=== PATIENT | male | born 1960 | race Asian ===

== ENCOUNTER 2018-07-14 10:30 | Inpatient (IN) | payer OTHER ==
[2018-07-14 10:37] VITALS: BMI 25.0
--- NOTE | 2018-07-14 10:38 | PDOC ---
History of Present Illness - General Chief Complaint: Chest Pain Stated Complaint: CHEST PAIN Time Seen by Provider: 07/14/18 10:38 History Source: Patient Exam Limitations: No Limitations - History of Present Illness Initial Comments: 07/14/18 11:13 58-year-old male with past medical history of hypertension, hyperlipidemia presented to ED chest pain since 9:45 AM. He describes the pain to be located to the left side of his chest, sharp, heavy, non-radiating, no alleviating are aggravating factors. He admits to shortness of breath, lightheadedness. His father had and [place] in his 80s. He denies alcohol used drug use nicotine history. He states he was standing in the shower when the pain began. Allergies - NKDA Past History - Past Medical History Allergies/Adverse Reactions: Allergies Allergy/AdvReac Type Severity Reaction Status Date / Time No Known Allergies Allergy Verified 07/14/18 10:34 Home Medications: Ambulatory Orders Montelukast Sodium [Singulair] 10 mg PO DAILY 07/14/18 Atorvastatin Ca [Lipitor] 80 mg PO HS tablet 07/15/18 Heparin - 1,000 unit IVPUSH PRN PRN vial 07/15/18 Heparin - 5,000 unit IVPUSH PRN PRN vial 07/15/18 Heparin - 5,000 unit IVPUSH PRN PRN vial 07/15/18 Heparin - 25,000 unit IV TITR vial 07/15/18 Metoprolol Tartrate [Lopressor -] 25 mg PO BID tablet 07/15/18 COPD: No HTN: Yes Hypercholesterolemia: Yes Other medical history: seasonal allergies - Immunization History Immunization Up to Date: Yes - Suicide/Smoking/Psychosocial Hx Smoking History: Never smoked Have you smoked in the past 12 months: No Hx Alcohol Use: No Drug/Substance Use Hx: No Substance Use Type: None Review of Systems - Review of Systems Able to Perform ROS?: Yes Comments:: 07/14/18 10:58 General: denies fever, chills, night sweats, generalized weakness. HEENT: denies sore throat, rhinorrhea, ear pain. Heart: admits to chest pain, pre-syncope, lightheadedness. denies palpitations, syncope, lower extremity swelling, diaphoresis. Respiratory: admits to shortness of breath. denies cough, sputum production, hemoptysis. Abdomen: denies abdominal pain, nausea, vomiting, diarrhea, constipation, blood in stool. : denies dysuria, increased urinary frequency, hematuria, urinary incontinence , flank pain. Back: denies back pain. Musculoskeletal: denies joint pain, muscle pain, joint swelling. Neurological: denies headache, dizziness, numbness, tingling, weakness. Skin: denies rash, laceration, abrasion. *Physical Exam - Vital Signs Last Vital Signs Temp Pulse Resp BP Pulse Ox 97.7 F 102 H 18 156/92 100 07/14/18 10:35 07/14/18 10:35 07/14/18 10:35 07/14/18 10:35 07/14/18 10:35 - Physical Exam Comments: 07/14/18 10:59 Constitutional: Well-nourished, Well-developed, appearing stated age. HEENT: head is normocephalic, atraumatic. EOMI. PERRLA. Neck: supple. Full ROM. Heart: regular rhythm. no murmurs, rubs or gallops. Lungs: clear to auscultation bilaterally. no crackles, rhonchi or wheezing. no stridor. Abdomen: soft, nontender. normal bowel sounds. no rebound, guarding, masses. Extremities: Peripheral pulses intact. No lower extremity edema. Neurological: CN 2-12 grossly intact. Moves all four extremities. Psych: awake, alert, oriented x3. Follows commands. Answers questions appropriately. Heart Score/ECG Review - History History: Highly suspicious - Electrocardiogram EKG: Significant ST-depression - Age Age: 45-65 - Risk Factors Risk Factors Heart Score: Yes Hx Hypercholesterolemia, Yes Hx Hypertension Based on the list above the patient has:: 1-2 risk factors - Troponin Troponin: 1-3x normal limit - Score Heart Score - Total: 7 ED Treatment Course - LABORATORY CBC & Chemistry Diagram: 07/15/18 05:14 07/15/18 05:14 Medical Decision Making - Medical Decision Making 07/14/18 10:59 58 year old male with PMH HTN, HLD presented to ED for left sided chest pain since 09 today associated with lightheadedness, SOB, pre-syncope. Initial Vital Signs Temp Pulse Resp BP Pulse Ox 97.7 F 102 H 18 156/92 100 07/14/18 10:35 07/14/18 10:35 07/14/18 10:35 07/14/18 10:35 07/14/18 10:35 Afebrile. Mildly tachycardic. - IV fluids ordered Hypertensive No hypoxia on room air. EKG performed at 1043 - rate 93, regular rhythm, normal axis, normal intervals, ST depression to the precordial anterior and lateral leads. flipped Ts to lateral leads. Posterior EKG performed at 1059 - rate 90, regular rhythm, normal axis, normal intervals, no ST changes. Prior EKG 12/12/2015 - rate 9, regular rhythm, normal axis, flipped Ts to anterior and lateral leads. Bedside echo performed by myself and Dr. Diaz - good cardiac squeeze. no pericardial effusion. Bedside lung US performed by myself and Dr. Diaz - lung sliding bilaterally. no B- lines. HEART score = at least a 6 - Pending Troponin Concern for ACS. - Pending labs, CXR ASA, Morphine given. Cardiology paged. 07/14/18 11:17 Dr. Diaz spoke with Cardiology patient ombudsperson, Dr. Bridges, he states he will see the patient. CXR report - no acute intrathoracic pathology. CBC WBC 4.4 K/mm3 (4.0-10.0) 07/14/18 10:52 RBC 5.10 M/mm3 (4.00-5.60) 07/14/18 10:52 Hgb 15.7 GM/dL (11.7-16.9) 07/14/18 10:52 Hct 46.4 % (35.4-49) 07/14/18 10:52 MCV 91.0 fl (80-96) 07/14/18 10:52 MCH 30.8 pg (25.7-33.7) 07/14/18 10:52 MCHC 33.9 g/dl (32.0-35.9) 07/14/18 10:52 RDW 12.6 % (11.9-15.9) 07/14/18 10:52 Plt Count 171 K/MM3 (134-434) 07/14/18 10:52 MPV 9.5 fl (7.5-11.1) 07/14/18 10:52 Absolute Neuts (auto) 1.7 K/mm3 (1.5-8.0) 07/14/18 10:52 Neutrophils % 38.6 % (42.8-82.8) L D 07/14/18 10:52 Lymphocytes % 48.3 % (8-40) H D 07/14/18 10:52 Monocytes % 10.1 % (3.8-10.2) 07/14/18 10:52 Eosinophils % 1.9 % (0-4.5) D 07/14/18 10:52 Basophils % 1.1 % (0-2.0) 07/14/18 10:52 Nucleated RBC % 0 % (0-0) 07/14/18 10:52 No leukocytosis. No anemia. 07/14/18 11:47 CMP Sodium 142 mmol/L (136-145) 07/14/18 10:52 Potassium 3.3 mmol/L (3.5-5.1) L 07/14/18 10:52 Chloride 105 mmol/L (98-107) 07/14/18 10:52 Carbon Dioxide 25 mmol/L (21-32) 07/14/18 10:52 Anion Gap 12 MMOL/L (8-16) 07/14/18 10:52 BUN 13 mg/dL (7-18) 07/14/18 10:52 Creatinine 1.1 mg/dL (0.55-1.3) 07/14/18 10:52 Creat Clearance w eGFR > 60 (>60) 07/14/18 10:52 Random Glucose 102 mg/dL (74-106) 07/14/18 10:52 Calcium 8.8 mg/dL (8.5-10.1) 07/14/18 10:52 Magnesium 2.2 mg/dL (1.8-2.4) 07/14/18 10:52 Total Bilirubin 0.5 mg/dL (0.2-1) 07/14/18 10:52 AST 33 U/L (15-37) 07/14/18 10:52 ALT 43 U/L (13-61) 07/14/18 10:52 Alkaline Phosphatase 60 U/L (45-117) 07/14/18 10:52 Troponin I 0.80 ng/ml (0.00-0.05) H* 07/14/18 10:52 Total Protein 8.2 g/dl (6.4-8.2) 07/14/18 10:52 Albumin 4.3 g/dl (3.4-5.0) 07/14/18 10:52 Positive troponin. HEART score = 7 Hypokalemia - PO Kcl ordered Dr. Bridges at bedside, notified of results, recs heparin and nitro drip. -Ordered 07/14/18 12:01 Vital Signs Temperature 97.7 F 07/14/18 10:35 Pulse Rate 93 H 07/14/18 11:49 Respiratory Rate 18 07/14/18 11:49 Blood Pressure 133/86 07/14/18 11:49 O2 Sat by Pulse Oximetry (%) 100 07/14/18 11:49 Hypertension improving. Tachycardia improved. I spoke with Dr. Bridges about the case after he evaluated the patient, he advises admission to [facility] for NSTEMI. Pt will be admitted. 07/14/18 13:01 Dr. Diaz spoke with Lynne, admitting team, pt will be admitted to Dr. Carvajal service. 07/14/18 13:57 Repeat troponin and EKG ordered. 07/14/18 14:05 Repeat EKG performed at 1400 - rate 63, regular rhythm, normal axis, continued ST depression and flipped Ts in precordial anterior/lateral leads. flipped Ts in lateral leads. 07/14/18 14:47 Lab called - Troponin 1.02 07/14/18 18:48 Lab called - Troponin 1.49 Cardiology, Dr. Bridges, paged. *DC/Admit/Observation/Transfer Diagnosis at time of Disposition: NSTEMI (non-ST elevated myocardial infarction) - Discharge Dispostion Disposition: TRANSFER ACUTE CARE/OTHER HOSP Condition at time of disposition: Guarded Decision to Admit order: Yes - Referrals - Patient Instructions - Post Discharge Activity
[2018-07-14] MEDS ORDERED: ASPIRIN 81 MG CHEWABLE TABLETS PO ONE (10:40)
--- NOTE | 2018-07-14 10:41 | PDOC ---
Attending Attestation - Resident Resident Name: Roxy Joyner - ED Attending Attestation I have performed the following: I have examined & evaluated the patient, The case was reviewed & discussed with the resident, I agree w/resident's findings & plan - HPI HPI: 07/14/18 11:00 58-year-old male with HTN, HLD GERD presenting with acute onset of left-sided nonradiating and nonexertional chest pain at 9:45 AM while he was taking a shower. Associated with near syncopal episode. Currently chest pain is 10/10. No relieving or exacerbating factors. Family history of CAD and elderly father in his 80s and diabetes. Denies tobacco, alcohol or drug use. - Physicial Exam PE: 07/14/18 11:09 mild distress 2/2 pain, unwell appearing, MMM, nl conjunctiva, EOMI, PERRL. anicteric; neck supple. no jvd. lungs clear, RRR, abdomen soft nontender. BHANDARI x4 , no focal neuro deficits. No peripheral edema. normal color for ethnicity, WWP. no calf tenderness. - Critical Care Time Total Critical Care Time: 40 (NSTEMI) Critical Care Statement: The care of this patient involved high complexity decision making to prevent further life threatening deterioration of the patient 's condition and/or to evaluate & treat vital organ system(s) failure or risk of failure. - Medical Decision Making 07/14/18 11:09 58-year-old male with HTN, HLD GERD p/w typical chest pain. Chest pain Heart score; HEART score 7 which denotes High risk and suspicion probability for ACS, warrants admission DDx includes ACS, angina, chest pain NOS, costochondritis, GERD, pleurisy, anxiety, esophageal spasm. Low suspicion for pulmonary embolism or dissection. Vital signs reviewed, +tachycardia noted, likely from pain. EKG normal sinus rhythm, no interval abnormalities, narrow QRS, deep T wave inversions in precordials, I, AVL, St depressions in V1-V3, changed from prior. emergent bedside POCUS echo - no pericardial effusion, RV<LV, normal EF on visual estimation, bilateral lung sliding, A line predominance, no e/o pulmonary edema or AIS or ptx. interventions in the ED: ASA 324mg PO, morphine analgesia, IVF. Heparin 5000 units bolus and gtt. Plavix load. nitro gtt. laboratory results and imaging reviewed, basic labs and lytes wnl, notable for mildly low potassium, repleted. CXR_negative for intra thoracic process. Cardiac panel with elevated troponin to 0.8, new EKG changes for acute ischemia cardiology cs with Dr. Bridges, agree with plan, will come to see - plan for urgent cath likely tomorrow Dispo: Admit for observation, concern for unstable angina/NSTEMI and symptomatic. to r/o MA, serial trops and EKG/tele monitoring, more urgent catheterization. ASA/plavix, heparin gtt administered, pain controlled, discussion with patient and family at bedside, questions answered. 07/14/18 13:00 07/14/18 13:02 Heart Score/ECG Review - History History: Highly suspicious - Electrocardiogram EKG: Significant ST-depression - Age Age: 45-65 - Risk Factors Risk Factors Heart Score: Yes Hx Hypercholesterolemia, Yes Hx Hypertension Based on the list above the patient has:: 1-2 risk factors - Troponin Troponin: 1-3x normal limit - Score Heart Score - Total: 7 - ECG Impressions Ischemic Changes: Yes Comment:: 07/14/18 11:21 EKG normal sinus rhythm, no interval abnormalities, narrow QRS, deep T wave inversions in precordials, I, AVL, St depressions in V1-V3, changed from prior. Procedures - Bedside Ultrasound Bedside Ultrasound: Cardiac Remarks: 07/14/18 11:25 POCUS echo performed, indication includes chest pain. views obtained (PSLA, PSS , A4, SX). Findings include normal EF, no pericardial effusion, primarily A lines, b/l lung sliding. no FWMA. RV<LV. Impression: no acute findings
[2018-07-14] MEDS ORDERED: ASPIRIN 81 MG CHEWABLE TABLETS ONE (10:44)
[2018-07-14] MEDS ORDERED: morphine CARPU-JECT 4 MG/1 ML DISP.SYRIN IVPUSH ONE (10:57)
[2018-07-14] MEDS ORDERED: SODIUM CHLORIDE 0.9% 500 ML INFUS.BAG IV ONE (10:58)
[2018-07-14] MEDS ORDERED: morphine SULFATE 4 MG/ML VIAL ONE (10:59)
[2018-07-14 11:03] LABS: BASO % 1.1 % (0-2.0); EOS % 1.9 % (0-4.5); HEMATOCRIT 46.4 % (35.4-49); HEMOGLOBIN 15.7 GM/dL (11.7-16.9); LYMPH % 48.3 % (8-40); MCH 30.8 pg (25.7-33.7); MCHC 33.9 g/dl (32.0-35.9); MEAN PLT VOLUME 9.5 fl (7.5-11.1); MONO % 10.1 % (3.8-10.2); NEUT % 38.6 % (42.8-82.8); PLATELET COUNT 171 K/MM3 (134-434); RDW 12.6 % (11.9-15.9); WHITE BLOOD COUNT 4.4 K/mm3 (4.0-10.0)
[2018-07-14 11:31] LABS: ALBUMIN 4.3 g/dl (3.4-5.0); ALK PHOS 60 U/L (45-117); ANION GAP 12 MMOL/L (8-16); BILIRUBIN,TOTAL 0.5 mg/dL (0.2-1); BLOOD UREA NITROGEN 13 mg/dL (7-18); CALCIUM 8.8 mg/dL (8.5-10.1); CHLORIDE 105 mmol/L (98-107); CO2 25 mmol/L (21-32); CREATININE 1.1 mg/dL (0.55-1.3); GLUCOSE,RANDOM 102 mg/dL (74-106); MAGNESIUM 2.2 mg/dL (1.8-2.4); POTASSIUM 3.3 mmol/L (3.5-5.1); SGOT/AST 33 U/L (15-37); SGPT/ALT 43 U/L (13-61); SODIUM 142 mmol/L (136-145); TOT PROT 8.2 g/dl (6.4-8.2)
[2018-07-14] MEDS ORDERED: POTASSIUM CHLORIDE TABS 20 MEQ TABLET.ER (FP) PO ONE ×2 (11:36→11:53)
[2018-07-14] MEDS ORDERED: HEPARIN - 25,000 UNIT in SODIUM CHLORIDE 495 ML IV SCH (11:45)
[2018-07-14] MEDS ORDERED: NITROGLYCERIN SUBLINGUAL 1/150 0.4 MG TAB SL ONE (11:45)
[2018-07-14] MEDS ORDERED: HEPARIN NA (PORCINE) 5,000 UNITS/ML 1ML VIAL IVPUSH PRN ×3 (11:45)
[2018-07-14] MEDS ORDERED: CLOPIDOGREL BISULFATE 300 MG TABLET PO ONE (11:49)
[2018-07-14] MEDS ORDERED: HEPARIN NA (PORCINE) 5,000 UNITS/ML 1ML VIAL ONE ×2 (11:52→11:53)
[2018-07-14] MEDS ORDERED: HEPARIN INFUSION - 25,000 UNITS/500 ML INFUS.BAG IVPB ONE (11:52)
[2018-07-14] MEDS ORDERED: NITROGLYCERIN 25MG/D5W 250ML 25 MG/250 ML ML IVPB ONE (11:52)
[2018-07-14 11:59] LABS: INR 0.91 (0.83-1.09); PROTHROMBIN TIME (PATIENT) 10.7 SEC (9.7-13.0)
[2018-07-14] MEDS ORDERED: NITROGLYCERIN 50MG/D5W 250ML 50 MG/250 ML ML IVPB SCH (12:00)
[2018-07-14 12:01] LABS: ACTIVATED PTT 32.7 SECONDS (25.2-36.5)
--- NOTE | 2018-07-14 12:05 | CON.CARD ---
Consult Consult Specialty:: Cardiology Referred by:: ER attending Reason for Consultation:: Cardiac evaluation - History of Present Illness Chief Complaint: Chest pain History of Present Illness: Patient is a 58 year old male with underlying history of HTN and hypercholesterolemia who presents with left sided chest pressure and SOB that started at 9:45 am this morning. He was brought in by his son. He was taking a shower when the pain started. He has not had chest pains in the past. Denies palpitations and denies nausea, vomiting, diarrhea or abdominal pain. He denies paroxysmal nocturnal dyspnea or orthopnea. He denies fever or chills. Denies headache or dizziness. He was given chewable ASA and morphine which has relieved the pain. Troponin level is elevated at 0.8. Cardiology consultation was called for further evaluation. - History Source History Provided By: Patient, Medical Record Limitations to Obtaining History: No Limitations - Past Medical History Cardio/Vascular: Yes: HTN, Hyperlipdemia - Alcohol/Substance Use Hx Alcohol Use: No - Smoking History Smoking history: Never smoked Have you smoked in the past 12 months: No Home Medications - Allergies Allergies/Adverse Reactions: Allergies Allergy/AdvReac Type Severity Reaction Status Date / Time No Known Allergies Allergy Verified 07/14/18 10:34 - Home Medications Home Medications: Ambulatory Orders Hydrochlorothiazide [Hctz -] 12.5 mg PO DAILY 12/12/15 Montelukast Sodium [Singulair] 10 mg PO DAILY 07/14/18 Simvastatin 20 mg PO DAILY 07/14/18 Family Disease History - Family Disease History Family Disease History: Heart Disease: Father ([place] at age 80) Other Family History: History of DM Review of Systems - Review of Systems Constitutional: denies: Chills, Fever Cardiovascular: reports: Chest Pain, Shortness of Breath. denies: Palpitations Respiratory: reports: SOB. denies: Cough, Hemoptysis, Orthopnea, SOB on Exertion, Wheezing Gastrointestinal: denies: Abdominal Pain, Constipation, Diarrhea, Melena, Nausea , Rectal Bleeding, Vomiting Genitourinary: denies: Dysuria, Hematuria Musculoskeletal: denies: Back Pain, Joint Pain Neurological: denies: Dizziness, Headache, Seizure, Syncope Vital Signs: Vital Signs Temperature 97.7 F 07/14/18 10:35 Pulse Rate 93 H 07/14/18 11:49 Respiratory Rate 18 07/14/18 11:49 Blood Pressure 133/86 10/21/18 11:49 O2 Sat by Pulse Oximetry (%) 100 07/14/18 11:49 Neck: Yes: Supple Respiratory: Yes: CTA Bilaterally Gastrointestinal: Yes: Normal Bowel Sounds, Soft. No: Tenderness Cardiovascular: Yes: Regular Rate and Rhythm JVD: No Carotid Bruit: No PMI: Non-Displaced Heart Sounds: Yes: S1, S2. No: Gallop Murmur: No: Systolic Murmur, Diastolic Murmur Edema: No - Other Data Labs, Other Data: CBC, BMP 07/14/18 10:52 07/14/18 10:52 Troponin, BNP 07/14/18 10:52 Troponin I 0.80 H* Laboratory Results - last 24 hr 07/14/18 07/14/18 07/14/18 10:52 10:52 10:52 WBC 4.4 RBC 5.10 Hgb 15.7 Hct 46.4 MCV 91.0 MCH 30.8 MCHC 33.9 RDW 12.6 Plt Count 171 MPV 9.5 Absolute Neuts (auto) 1.7 Neutrophils % 38.6 L D Lymphocytes % 48.3 H D Monocytes % 10.1 Eosinophils % 1.9 D Basophils % 1.1 Nucleated RBC % 0 PT with INR 10.70 INR 0.91 PTT (Actin FS) 32.7 Sodium 142 Potassium 3.3 L Chloride 105 Carbon Dioxide 25 Anion Gap 12 BUN 13 Creatinine 1.1 Creat Clearance w eGFR > 60 Random Glucose 102 Calcium 8.8 Magnesium 2.2 Total Bilirubin 0.5 AST 33 ALT 43 Alkaline Phosphatase 60 Troponin I 0.80 H* Total Protein 8.2 Albumin 4.[address]-T abnormality inferolatera ischemia Imaging - Results Chest X-ray: Report Reviewed (Unremarkable) EKG: Report Reviewed Problem List - Problems (1) HTN (hypertension) Code(s): I10 - ESSENTIAL (PRIMARY) HYPERTENSION Qualifiers: Hypertension type: essential hypertension Qualified Code(s): I10 - Essential (primary) hypertension (2) Hypercholesterolemia Code(s): E78.00 - PURE HYPERCHOLESTEROLEMIA, UNSPECIFIED (3) NSTEMI (non-ST elevated myocardial infarction) Code(s): I21.4 - NON-ST ELEVATION (NSTEMI) MYOCARDIAL INFARCTION (4) Chest pain Code(s): R07.9 - CHEST PAIN, UNSPECIFIED Assessment/Plan 1. NSTEMI with elevated troponin and abnormal ECG 2. HTN 3. Hypercholesterolemia 4. Seasonal allergies PLAN: 1. ASA +/- Plavix or Brillinta 2. Add Metoprolol 25 mg BID as tolerated 3. Heparin protocol 4. IV NTG 5. Lipitor 80 mg daily 6. Hold HCTZ 7. Trend troponin to check for peak 8. Consider cardiac catheterization/coronary angiography - will plan to transfer to [facility] in AM unless he becomes unstable Guarded Maycol Bridges MD
[2018-07-14] MEDS ORDERED: CLOPIDOGREL BISULFATE 300 MG TABLET ONE (12:10)
[2018-07-14] MEDS ORDERED: ATORVASTATIN CA 80 MG TABLET (FP) PO ONE (12:19)
--- NOTE | 2018-07-14 13:19 | EKG ---
Test Reason : Blood Pressure : / mmHG Vent. Rate : 093 BPM Atrial Rate : 093 BPM P-R Int : 170 ms QRS Dur : 088 ms QT Int : 392 ms P-R-T Axes : 069 036 141 degrees QTc Int : 487 ms NORMAL SINUS RHYTHM LEFT VENTRICULAR HYPERTROPHY WITH REPOLARIZATION ABNORMALITY POSTERIOR INFARCT , AGE UNDETERMINED ABNORMAL ECG WHEN COMPARED WITH ECG OF 12-DEC-2015 21:06, ST NOW DEPRESSED IN ANTERIOR LEADS Confirmed by EDWINA MAYA, KERRY ([id number]) on 07/14/2018 1:18:38 PM Referred By: Confirmed By:KERRY BLAND MD
[2018-07-14] MEDS: METOPROLOL TARTRATE 25 MG TABLET (FP) PO SCH ×2 (13:35→23:53)
--- NOTE | 2018-07-14 18:18 | HP ---
CHIEF COMPLAINT: chest pain PCP: Dr. Bryan HISTORY OF PRESENT ILLNESS: Patient is 58 year old male with a significant past medical history of hypertension and hyperlipidemia. He presents to the ED with chest pain that began around 945a.m. today. Pain is located in the left side of his chest, does not radiate. It felt heavy, sharp and persistent. During the episode of chest pain, he had mild shortness of breath and felt dizzy. EKG in the ED shows NSR, t wave inversion in posterior leads with ST depression in v1, v3. In the Ed he had a bedside echo, given ASA 324mg, morphine for chest pain, started on IVF hydration, started on a heparin drip. He was given a plavix loading dose and started on NITRO for chest pain. Patient seen by cardiology and plan to transfer to cardiac cath. ER course was notable for: (1) ekg with acute posterior ischemia (2) trop elevation, chest pain (3) heparin gtt, nitro gtt Recent Travel: denies PAST MEDICAL HISTORY: hypertension, hld PAST SURGICAL HISTORY: none reported Social History: Smoking: denies Alcohol: denies Drugs: denies Family History: Allergies No Known Allergies Allergy (Verified 07/14/18 10:34) HOME MEDICATIONS: Home Medications Medication Instructions Recorded Hydrochlorothiazide [Hctz -] 12.5 mg PO DAILY 12/12/15 Montelukast Sodium [Singulair] 10 mg PO DAILY 07/14/18 Simvastatin 20 mg PO DAILY 07/14/18 PHYSICAL EXAMINATION Vital Signs - 24 hr 07/14/18 07/14/18 07/14/18 10:35 11:06 11:10 Temperature 97.7 F Pulse Rate 102 H 89 Pulse Rate [ 91 H Apical] Respiratory 18 18 Rate Blood Pressure 156/92 Blood Pressure 140/90 [Left Arm] O2 Sat by Pulse 100 100 100 Oximetry (%) 07/14/18 07/14/18 07/14/18 11:49 12:36 13:43 Temperature Pulse Rate Pulse Rate [ 93 H 73 78 Apical] Respiratory 18 18 18 Rate Blood Pressure Blood Pressure 133/86 133/73 126/73 [Left Arm] O2 Sat by Pulse 100 100 100 Oximetry (%) 07/14/18 07/14/18 14:36 16:00 Temperature Pulse Rate Pulse Rate [ 70 63 Apical] Respiratory 17 18 Rate Blood Pressure Blood Pressure 125/73 110/74 [Left Arm] O2 Sat by Pulse 100 100 Oximetry (%) GENERAL: Awake, alert, and fully oriented, having mild left sided chest pain 2/ 10 HEAD: Normal with no signs of trauma. EYES: Pupils equal, round and reactive to light, extraocular movements intact, sclera anicteric, conjunctiva clear. No lid lag. EARS, NOSE, THROAT: Ears normal, nares patent, oropharynx clear without exudates. Moist mucous membranes. NECK: Normal range of motion, supple without lymphadenopathy, JVD, or masses. LUNGS: Breath sounds equal, clear to auscultation bilaterally. No wheezes, and no crackles. No accessory muscle use. HEART: Regular rate and rhythm ABDOMEN: Soft, nontender, not distended, normoactive bowel sounds, no guarding, no rebound, no masses. No hepatomegaly or splenomegaly. MUSCULOSKELETAL: Normal range of motion at all joints. No bony deformities or tenderness. No CVA tenderness. UPPER EXTREMITIES: No clubbing. No peripheral edema. LOWER EXTREMITIES: No calf tenderness. No peripheral edema. NEUROLOGICAL: Normal speech. Normal gait. PSYCHIATRIC: Cooperative. Good eye contact. Appropriate mood and affect. SKIN: Warm, dry, normal turgor, no rashes or lesions noted, normal capillary refill. Laboratory Results - last 24 hr 07/14/18 07/14/18 07/14/18 10:52 10:52 10:52 WBC 4.4 RBC 5.10 Hgb 15.7 Hct 46.4 MCV 91.0 MCH 30.8 MCHC 33.9 RDW 12.6 Plt Count 171 MPV 9.5 Absolute Neuts (auto) 1.7 Neutrophils % 38.6 L D Lymphocytes % 48.3 H D Monocytes % 10.1 Eosinophils % 1.9 D Basophils % 1.1 Nucleated RBC % 0 PT with INR 10.70 INR 0.91 PTT (Actin FS) 32.7 D-Dimer Sodium 142 Potassium 3.3 L Chloride 105 Carbon Dioxide 25 Anion Gap 12 BUN 13 Creatinine 1.1 Creat Clearance w eGFR > 60 Random Glucose 102 Calcium 8.8 Magnesium 2.2 Total Bilirubin 0.5 AST 33 ALT 43 Alkaline Phosphatase 60 Troponin I 0.80 H* Total Protein 8.2 Albumin 4.3 07/14/18 07/14/18 10:56 14:07 WBC RBC Hgb Hct MCV MCH MCHC RDW Plt Count MPV Absolute Neuts (auto) Neutrophils % Lymphocytes % Monocytes % Eosinophils % Basophils % Nucleated RBC % PT with INR INR PTT (Actin FS) D-Dimer 340 Sodium Potassium Chloride Carbon Dioxide Anion Gap BUN Creatinine Creat Clearance w eGFR Random Glucose Calcium Magnesium Total Bilirubin AST ALT Alkaline Phosphatase Troponin I 1.02 H* Total Protein Albumin ASSESSMENT/PLAN: Patient is 58 year old male with a significant past medical history of hypertension and hyperlipidemia. He presents to the ED with chest pain that began around 945a.m. today. Pain is located in the left side of his chest, does not radiate. It felt heavy, sharp and persistent. During the episode of chest pain, he had mild shortness of breath and felt dizzy. EKG in the ED shows NSR, t wave inversion in posterior leads with ST depression in v1, v3. In the Ed he had a bedside echo, given ASA 324mg, morphine for chest pain, started on IVF hydration, started on a heparin drip. He was given a plavix loading dose and started on NITRO for chest pain. Patient seen by cardiology and plan to transfer to cardiac cath. Cardiology Chest pain Elevated troponins, new ekg changes with t wave inversions, st depression Given Plavix loading dose, ASA 324, heparin gtt, Nitro drip for chest pain Heparin drip for acute NC Transfer to cardiac cath (Kenny) Monitor on tele. Cardiology following fen hydration with ns monitor electrolytes, potassium repleted in the ED low salt diet, npo at midnight prophy: heparin drip nitro drip protonix full code Visit type - Emergency Visit Emergency Visit: Yes ED Registration Date: 07/14/18 Care time: The patient presented to the Emergency Department on the above date and was hospitalized for further evaluation of their emergent condition. - New Patient This patient is new to me today: Yes Date on this admission: 07/14/18 - Critical Care Critical Care patient: No
[2018-07-14] MEDS ORDERED: MORPHINE SULFATE 2 MG/ML VIAL IVPUSH PRN (21:44)
[2018-07-14] MEDS ORDERED: ATORVASTATIN CA 80 MG TABLET (FP) ONE (22:23)
[2018-07-14] MEDS ORDERED: METOPROLOL TARTRATE 25 MG TABLET (FP) ONE (22:23)
[2018-07-15] MEDS ORDERED: METOPROLOL TARTRATE 25 MG TABLET (FP) ONE (00:01)
[2018-07-15 06:16] LABS: BASO % 0.6 % (0-2.0); EOS % 1.3 % (0-4.5); HEMATOCRIT 41.7 % (35.4-49); HEMOGLOBIN 13.9 GM/dL (11.7-16.9); MCH 30.5 pg (25.7-33.7); MCHC 33.3 g/dl (32.0-35.9); MEAN CELL VOLUME 91.7 fl (80-96); MEAN PLT VOLUME 9.9 fl (7.5-11.1); MONO % 9.2 % (3.8-10.2); NEUT % 62.9 % (42.8-82.8); PLATELET COUNT 167 K/MM3 (134-434); RBC 4.55 M/mm3 (4.00-5.60); RDW 13.1 % (11.9-15.9); WHITE BLOOD COUNT 8.6 K/mm3 (4.0-10.0)
[2018-07-15 06:48] LABS: MAGNESIUM 2.3 mg/dL (1.8-2.4); PHOSPHOROUS 3.2 mg/dL (2.5-4.9)
[2018-07-15 06:49] LABS: ALBUMIN 3.7 g/dl (3.4-5.0); ALK PHOS 49 U/L (45-117); ANION GAP 6 MMOL/L (8-16); BILIRUBIN,TOTAL 0.9 mg/dL (0.2-1); BLOOD UREA NITROGEN 12 mg/dL (7-18); CALCIUM 8.8 mg/dL (8.5-10.1); CHLORIDE 108 mmol/L (98-107); CO2 28 mmol/L (21-32); GLUCOSE,RANDOM 101 mg/dL (74-106); POTASSIUM 4.1 mmol/L (3.5-5.1); SGOT/AST 36 U/L (15-37); SGPT/ALT 38 U/L (13-61); SODIUM 142 mmol/L (136-145); TOT PROT 7.1 g/dl (6.4-8.2)
[2018-07-15 06:59] LABS: URINE APPEARANCE CLEAR; URINE BILIRUBIN NEGATIVE (<2.0 mg/dL); URINE COLOR YELLOW; URINE GLUCOSE (UA) NEGATIVE (NEGATIVE); URINE KETONE NEGATIVE (NEGATIVE); URINE LEUK ESTERASE NEGATIVE (NEGATIVE); URINE NITRITE NEGATIVE (NEGATIVE); URINE PROTEIN NEGATIVE (NEGATIVE); URINE UROBILINOGEN 4.0 E.U/dl mg/dL (0.2-1.0)
--- NOTE | 2018-07-15 08:27 | DS ---
Physical Exam: SUBJECTIVE: Patient seen and examined, was transferred to [place] before physical exam performed. OBJECTIVE: transfer to cardiac cath Vital Signs Period Temp Pulse Resp BP Sys/Cruz Pulse Ox Last 24 Hr 97.7 F-98.8 F 63-102 17-24 100-156/53-92 95-100 Laboratory Results - last 24 hr 07/14/18 07/14/18 07/14/18 05:14 10:52 10:52 WBC 4.4 RBC 5.10 Hgb 15.7 Hct 46.4 MCV 91.0 MCH 30.8 MCHC 33.9 RDW 12.6 Plt Count 171 MPV 9.5 Absolute Neuts (auto) 1.7 Neutrophils % 38.6 L D Lymphocytes % 48.3 H D Monocytes % 10.1 Eosinophils % 1.9 D Basophils % 1.1 Nucleated RBC % 0 PT with INR 10.70 INR 0.91 PTT (Actin FS) 32.7 D-Dimer Sodium Potassium Chloride Carbon Dioxide Anion Gap BUN Creatinine Creat Clearance w eGFR Random Glucose Calcium Phosphorus Magnesium Total Bilirubin AST ALT Alkaline Phosphatase Troponin I 1.87 H* Total Protein Albumin Triglycerides Cholesterol Total LDL Cholesterol HDL Cholesterol Urine Color Urine Appearance Urine pH Ur Specific Eldridge Urine Protein Urine Glucose (UA) Urine Ketones Urine Blood Urine Nitrite Urine Bilirubin Urine Urobilinogen Ur Leukocyte Esterase 07/14/18 07/14/18 07/14/18 10:52 10:56 14:07 WBC RBC Hgb Hct MCV MCH MCHC RDW Plt Count MPV Absolute Neuts (auto) Neutrophils % Lymphocytes % Monocytes % Eosinophils % Basophils % Nucleated RBC % PT with INR INR PTT (Actin FS) D-Dimer 340 Sodium 142 Potassium 3.3 L Chloride 105 Carbon Dioxide 25 Anion Gap 12 BUN 13 Creatinine 1.1 Creat Clearance w eGFR > 60 Random Glucose 102 Calcium 8.8 Phosphorus Magnesium 2.2 Total Bilirubin 0.5 AST 33 ALT 43 Alkaline Phosphatase 60 Troponin I 0.80 H* 1.02 H* Total Protein 8.2 Albumin 4.3 Triglycerides Cholesterol Total LDL Cholesterol HDL Cholesterol Urine Color Urine Appearance Urine pH Ur Specific Eldridge Urine Protein Urine Glucose (UA) Urine Ketones Urine Blood Urine Nitrite Urine Bilirubin Urine Urobilinogen Ur Leukocyte Esterase 07/14/18 07/14/18 07/14/18 16:32 18:18 21:15 WBC RBC Hgb Hct MCV MCH MCHC RDW Plt Count MPV Absolute Neuts (auto) Neutrophils % Lymphocytes % Monocytes % Eosinophils % Basophils % Nucleated RBC % PT with INR INR PTT (Actin FS) 123.9 H D-Dimer Sodium Potassium Chloride Carbon Dioxide Anion Gap BUN Creatinine Creat Clearance w eGFR Random Glucose Calcium Phosphorus Magnesium Total Bilirubin AST ALT Alkaline Phosphatase Troponin I 1.49 H* 2.04 H* Total Protein Albumin Triglycerides Cholesterol Total LDL Cholesterol HDL Cholesterol Urine Color Urine Appearance Urine pH Ur Specific Eldridge Urine Protein Urine Glucose (UA) Urine Ketones Urine Blood Urine Nitrite Urine Bilirubin Urine Urobilinogen Ur Leukocyte Esterase 07/15/18 07/15/18 07/15/18 05:14 05:14 05:14 WBC 8.6 RBC 4.55 Hgb 13.9 Hct 41.7 MCV 91.7 MCH 30.5 MCHC 33.3 RDW 13.1 Plt Count 167 MPV 9.9 Absolute Neuts (auto) 5.4 Neutrophils % 62.9 D Lymphocytes % 26.0 D Monocytes % 9.2 Eosinophils % 1.3 Basophils % 0.6 Nucleated RBC % 0 PT with INR INR PTT (Actin FS) 89.4 H D-Dimer Sodium 142 Potassium 4.1 Chloride 108 H Carbon Dioxide 28 Anion Gap 6 L BUN 12 Creatinine 1.0 Creat Clearance w eGFR > 60 Random Glucose 101 Calcium 8.8 Phosphorus Magnesium Total Bilirubin 0.9 AST 36 ALT 38 Alkaline Phosphatase 49 Troponin I Total Protein 7.1 Albumin 3.7 Triglycerides Cholesterol Total LDL Cholesterol HDL Cholesterol Urine Color Urine Appearance Urine pH Ur Specific Eldridge Urine Protein Urine Glucose (UA) Urine Ketones Urine Blood Urine Nitrite Urine Bilirubin Urine Urobilinogen Ur Leukocyte Esterase 07/15/18 07/15/18 05:14 06:43 WBC RBC Hgb Hct MCV MCH MCHC RDW Plt Count MPV Absolute Neuts (auto) Neutrophils % Lymphocytes % Monocytes % Eosinophils % Basophils % Nucleated RBC % PT with INR INR PTT (Actin FS) D-Dimer Sodium Potassium Chloride Carbon Dioxide Anion Gap BUN Creatinine Creat Clearance w eGFR Random Glucose Calcium Phosphorus 3.2 Magnesium 2.3 Total Bilirubin AST ALT Alkaline Phosphatase Troponin I Total Protein Albumin Triglycerides 112 Cholesterol 133 Total LDL Cholesterol 88 HDL Cholesterol 42 Urine Color Yellow Urine Appearance Clear Urine pH 6.0 Ur Specific Eldridge 1.013 Urine Protein Negative Urine Glucose (UA) Negative Urine Ketones Negative Urine Blood Negative Urine Nitrite Negative Urine Bilirubin Negative Urine Urobilinogen 4.0 e.u/dl Ur Leukocyte Esterase Negative HOSPITAL COURSE: Date of Admission:07/14/18 Date of Discharge: 07/15/18 Patient is 58 year old male with a significant past medical history of hypertension and hyperlipidemia. He presents to the ED with chest pain that began around 945a.m. today. Pain is located in the left side of his chest, does not radiate. It felt heavy, sharp and persistent. During the episode of chest pain, he had mild shortness of breath and felt dizzy. EKG in the ED shows NSR, t wave inversion in posterior leads with ST depression in v1, v3. In the Ed he had a bedside echo, given ASA 324mg, morphine for chest pain, started on IVF hydration, started on a heparin drip. He was given a plavix loading dose and started on NITRO for chest pain. Patient seen by cardiology and plan to transfer to cardiac cath. Cardiology Chest pain Elevated troponins, new ekg changes with t wave inversions, st depression Given Plavix loading dose, ASA 324, heparin gtt, Nitro drip for chest pain Heparin drip for acute IN Transfer to cardiac cath ([facility]) Monitor on tele. Cardiology following fen hydration with ns monitor electrolytes, potassium repleted in the ED low salt diet, npo at midnight prophy: heparin drip nitro drip protonix full code Minutes to complete discharge: 60 Discharge Summary Reason For Visit: MYOCARDIAL INFRACTION/UNSTABLE ANGINA PECTORIS Current Active Problems Chest pain (Acute) HTN (hypertension) (Acute) Hypercholesterolemia (Acute) NSTEMI (non-ST elevated myocardial infarction) (Acute) Condition: Guarded - Instructions Diet, Activity, Other Instructions: transfer to cardiac cath Referrals: Socorro Bryan MD [Primary Care Provider] - Disposition: TRANSFER ACUTE CARE/OTHER HOSP - Home Medications Comprehensive Discharge Medication List: Ambulatory Orders Montelukast Sodium [Singulair] 10 mg PO DAILY 07/14/18 Atorvastatin Ca [Lipitor] 80 mg PO HS tablet 07/15/18 Heparin - 1,000 unit IVPUSH PRN PRN vial 07/15/18 Heparin - 5,000 unit IVPUSH PRN PRN vial 07/15/18 Heparin - 5,000 unit IVPUSH PRN PRN vial 07/15/18 Heparin - 25,000 unit IV TITR vial 07/15/18 Metoprolol Tartrate [Lopressor -] 25 mg PO BID tablet 07/15/18 This patient is new to me today: No Emergency Visit: Yes ED Registration Date: 07/14/18 Care time: The patient presented to the Emergency Department on the above date and was hospitalized for further evaluation of their emergent condition. Critical Care patient: No - Discharge Referral Referred to [facility] Med [facility] No
--- NOTE | 2018-07-15 10:17 | PN ---
Progress Note, Physician History of Present Illness: Chest pain and dyspnea resolved on meds, planned for [facility] today. - Current Medication List Current Medications: Active Medications Atorvastatin Calcium (Lipitor -) 80 mg PO HS ELZA Heparin Sodium (Porcine) (Heparin -) 5,000 unit IVPUSH PRN PRN PRN Reason: Heparin Heparin Sodium (Porcine) (Heparin -) 1,000 unit IVPUSH PRN PRN PRN Reason: Heparin Heparin Sodium (Porcine) (Heparin -) 5,000 unit IVPUSH PRN PRN PRN Reason: Heparin Last Admin: 07/14/18 12:05 Dose: 5,000 unit Heparin Sodium (Porcine) 25, (000 unit/ Sodium Chloride) 500 mls @ 20 mls/hr IV TITR ELZA; Protocol Last Titration: 07/15/18 07:32 Dose: 750 unit/hr, 15 mls/hr Nitroglycerin/Dextrose (Nitroglycerin 50mg/D5w 250ml) 50 mg in 250 mls @ 3 mls/ hr IVPB TITR ELZA Last Admin: 07/14/18 12:19 Dose: 10 mcg/min, 3 mls/hr Metoprolol Tartrate (Lopressor -) 25 mg PO BID ELZA Last Admin: 07/14/18 13:35 Dose: 25 mg Morphine Sulfate (Morphine Sulfate) 1 mg IVPUSH Q4H PRN PRN Reason: PAIN LEVEL 7 - 10 - Objective Vital Signs: Vital Signs Temperature 98.5 F 07/15/18 05:30 Pulse Rate 87 07/15/18 09:24 Respiratory Rate 19 07/15/18 07:26 Blood Pressure 100/56 L 07/15/18 09:24 O2 Sat by Pulse Oximetry (%) 95 07/15/18 07:26 Constitutional: Yes: No Distress, Calm Neck: Yes: Supple Cardiovascular: Yes: Regular Rate and Rhythm Respiratory: Yes: Regular, CTA Bilaterally Gastrointestinal: Yes: Normal Bowel Sounds, Soft Edema: No Labs: CBC, BMP 07/15/18 05:14 07/15/18 05:14 INR, PTT INR 0.91 (0.83-1.09) 07/14/18 10:52 Problem List - Problems (1) HTN (hypertension) Code(s): I10 - ESSENTIAL (PRIMARY) HYPERTENSION Qualifiers: Hypertension type: essential hypertension Qualified Code(s): I10 - Essential (primary) hypertension (2) Hypercholesterolemia Code(s): E78.00 - PURE HYPERCHOLESTEROLEMIA, UNSPECIFIED (3) NSTEMI (non-ST elevated myocardial infarction) Code(s): I21.4 - NON-ST ELEVATION (NSTEMI) MYOCARDIAL INFARCTION Assessment/Plan 1. CAD with NSTEMI with elevated troponin and abnormal ECG 2. HTN 3. Hypercholesterolemia 4. Seasonal allergies PLAN: 1. ASA, Plavix, Lopressor 25 bid, Lipitor 80 qd 2. Heparin protocol 3. IV NTG 4. Troponins peaking 5. Transfer to [facility] for LHC +/- PCI
[2018-07-15] MEDS: METOPROLOL TARTRATE 25 MG TABLET (FP) PO SCH (10:20)
[2018-07-15] MEDS ORDERED: CLOPIDOGREL BISULFATE 300 MG TABLET PO ONE ×2 (10:20)
[2018-07-15] MEDS ORDERED: ASPIRIN 81 MG CHEWABLE TABLETS ONE (10:25)
[2018-07-15] MEDS ORDERED: ASPIRIN 81 MG CHEWABLE TABLETS PO SCH (10:30)
[2018-07-15 11:14] VITALS: BP 112/70; PULSE 97; TEMP 98
--- NOTE | 2018-07-15 21:30 | EKG ---
Test Reason : Blood Pressure : / mmHG Vent. Rate : 063 BPM Atrial Rate : 063 BPM P-R Int : 170 ms QRS Dur : 084 ms QT Int : 430 ms P-R-T Axes : 064 038 154 degrees QTc Int : 440 ms NORMAL SINUS RHYTHM LEFT VENTRICULAR HYPERTROPHY WITH REPOLARIZATION ABNORMALITY POSTERIOR INFARCT , AGE UNDETERMINED ABNORMAL ECG WHEN COMPARED WITH ECG OF 14-JUL-2018 11:56, NO SIGNIFICANT CHANGE WAS FOUND Confirmed by YURI VASQUEZ MD ([id number]) on 07/15/2018 9:30:20 PM Referred By: Confirmed By:YURI VASQUEZ MD
--- NOTE | 2018-07-15 21:31 | EKG ---
Test Reason : Blood Pressure : / mmHG Vent. Rate : 089 BPM Atrial Rate : 089 BPM P-R Int : 168 ms QRS Dur : 090 ms QT Int : 394 ms P-R-T Axes : 065 041 168 degrees QTc Int : 479 ms NORMAL SINUS RHYTHM LEFT VENTRICULAR HYPERTROPHY WITH REPOLARIZATION ABNORMALITY ABNORMAL ECG WHEN COMPARED WITH ECG OF 14-JUL-2018 11:52, Confirmed by YURI VASQUEZ MD ([id number]) on 07/15/2018 9:31:14 PM Referred By: Confirmed By:YURI VASQUEZ MD
--- NOTE | 2018-07-15 21:32 | EKG ---
Test Reason : Blood Pressure : / mmHG Vent. Rate : 095 BPM Atrial Rate : 095 BPM P-R Int : 150 ms QRS Dur : 080 ms QT Int : 384 ms P-R-T Axes : 055 042 159 degrees QTc Int : 482 ms NORMAL SINUS RHYTHM CANNOT RULE OUT ANTEROSEPTAL INFARCT , AGE UNDETERMINED ABNORMAL ECG WHEN COMPARED WITH ECG OF 14-JUL-2018 10:42, Confirmed by YURI VASQUEZ MD ([id number]) on 07/15/2018 9:32:07 PM Referred By: Confirmed By:YURI VASQUEZ MD
[2018-07-15] MEDS ORDERED: ATORVASTATIN CA 80 MG TABLET (FP) PO SCH (22:00)
== END 2018-07-15 11:38 | disposition short-term general hospital (02) | DRG 190 ==
LOC: JER 10:30 → JERBED 14:12
PROVIDERS: ADMIT Internal Medicine; ATTEND Nurse Practitioner Family
DX: I21.4 Non-ST elevation (NSTEMI) myocardial infarction (principal); I10 Essential (primary) hypertension; E78.5 Hyperlipidemia, unspecified; R07.89 Other chest pain; R94.31 Abnormal electrocardiogram [ECG] [EKG]; K21.9 Gastro-esophageal reflux disease without esophagitis; F41.9 Anxiety disorder, unspecified; I25.110 Atherosclerotic heart disease of native coronary artery with unstable angina pectoris; R00.0 Tachycardia, unspecified; I42.9 Cardiomyopathy, unspecified
CPT/HCPCS: 36415; 71045-TC-FY; 80053; 80061; 81003; 83036; 83721; 83735; 84100; 84484; 85025; 85379; 85610; 85730; 93005; 93010; 99285-25; J1644

== ENCOUNTER 2018-12-11 18:59 | Emergency (ER) | payer OTHER ==
[2018-12-11 19:09] VITALS: BP 138/83; PULSE 82; TEMP 98.3; BMI 25.0
[2018-12-11] MEDS ORDERED: IBUPROFEN 400 MG TABLET (FP) PO ONE ×2 (19:10→20:10)
[2018-12-11] MEDS ORDERED: CYCLOBENZAPRINE HCL 10 MG TABLET (FP) PO ONE (19:10)
--- NOTE | 2018-12-11 19:10 | PDOC ---
Rapid Medical Evaluation Medical Evaluation: Allergies Allergy/AdvReac Type Severity Reaction Status Date / Time No Known Allergies Allergy Verified 07/14/18 10:34 I have performed a brief in-person evaluation of this patient. The patient presents with a chief complaint of: c/o L buttock pain radiating down LLE since 2 days ago, worsening today; denies trauma, bowel/bladder incontinence, saddle/groin paresthesia, abd pain, n/v, urinary complaints; Took Tylenol prior to coming without relief Pertinent physical exam findings: In NAD, no vertebral spine TTP, no focal deficits, abdomen soft, ND, NT; no CVA TTP I have ordered the following: Motrin, Flexeril The patient will proceed to the ED for further evaluation. 12/11/18 19:04
[2018-12-11] MEDS ORDERED: CYCLOBENZAPRINE HCL 10 MG TABLET (FP) ONE (20:10)
--- NOTE | 2018-12-11 20:48 | PDOC ---
History of Present Illness - General Chief Complaint: Back Pain Stated Complaint: LOWER BACK PAIN Time Seen by Provider: 12/11/18 19:04 - History of Present Illness Initial Comments: 12/11/18 20:45 58-year-old male with a past medical history significant for myocardial infarction seasonal ALLERGIES he takes metoprolol atorvastatin aspirin and montelukast presents for evaluation of lower back pain with posterior lateral left leg radicular symptoms without loss of bowel or bladder function or saddle paresthesias 3 days. Past History - Past Medical History Allergies/Adverse Reactions: Allergies Allergy/AdvReac Type Severity Reaction Status Date / Time latex Allergy Verified 12/11/18 19:09 LATEX Allergy Uncoded 12/11/18 19:09 Home Medications: Ambulatory Orders Montelukast Sodium [Singulair] 10 mg PO DAILY 07/14/18 Atorvastatin Ca [Lipitor] 80 mg PO HS tablet 07/15/18 Heparin - 1,000 unit IVPUSH PRN PRN vial 07/15/18 Heparin - 5,000 unit IVPUSH PRN PRN vial 07/15/18 Heparin - 5,000 unit IVPUSH PRN PRN vial 07/15/18 Heparin - 25,000 unit IV TITR vial 07/15/18 Metoprolol Tartrate [Lopressor -] 25 mg PO BID tablet 07/15/18 Cyclobenzaprine HCl [Flexeril 10 mg] 10 mg PO HS PRN #10 tablet 12/11/18 Methylprednisolone [Medrol Dose Everette] 4 mg PO ASDIR #21 tablet 12/11/18 Cardiac Disorders: Yes (mild [place]) COPD: No HTN: Yes Hypercholesterolemia: Yes - Immunization History Immunization Up to Date: Yes - Suicide/Smoking/Psychosocial Hx Smoking History: Never smoked Have you smoked in the past 12 months: No Information on smoking cessation initiated: No Hx Alcohol Use: No Drug/Substance Use Hx: No Substance Use Type: None Review of Systems - Review of Systems Musculoskeletal: Yes: Back Pain Neurological: Yes: See HPI, Tingling *Physical Exam - Vital Signs Last Vital Signs Temp Pulse Resp BP Pulse Ox 98.3 F 82 18 138/83 99 12/11/18 19:04 12/11/18 19:04 12/11/18 19:04 12/11/18 19:04 12/11/18 19:04 - Physical Exam Comments: 12/11/18 20:46 Lumbar spine skin color and temperature are normal. Range of motion is slightly decreased. There is moderate right left paralumbar musculature spasm and tenderness. 5 out of 5 strength in bilateral lower extremities without gross sensorimotor deficits. Is neurovascularly intact. Moderate Sedation - Procedure Monitoring Vital Signs: Procedure Monitoring Vital Signs Temperature 98.3 F 12/11/18 19:04 Pulse Rate 82 12/11/18 19:04 Respiratory Rate 18 12/11/18 19:04 Blood Pressure 138/83 12/11/18 19:04 O2 Sat by Pulse Oximetry (%) 99 12/11/18 19:04 ED Treatment Course - Medications Given in the ED: ED Medications Discontinued Medications Generic Name Dose Route Start Last Admin Trade Name Freq PRN Reason Stop Dose Admin Cyclobenzaprine HCl 10 mg 12/11/18 19:10 12/11/18 20:12 Flexeril - PO 12/11/18 19:11 10 mg ONCE ONE Administration Ibuprofen 800 mg 12/11/18 19:10 12/11/18 20:12 Motrin - PO 12/11/18 19:11 800 mg ONCE ONE Administration Medical Decision Making - Medical Decision Making 12/11/18 20:46 1 to get see use of anti-inflammatories with prior [place], we'll treat with Medrol Dosepak and Flexeril and orthopedic spine surgery follow-up. *DC/Admit/Observation/Transfer Diagnosis at time of Disposition: Lumbar radiculopathy, acute - Discharge Dispostion Disposition: HOME Condition at time of disposition: Stable Decision to Admit order: No - Prescriptions Prescriptions: Cyclobenzaprine HCl [Flexeril 10 mg] 10 mg PO HS PRN #10 tablet PRN Reason: Muscle Spasms Methylprednisolone [Medrol Dose Everette] 4 mg PO ASDIR #21 tablet - Referrals Referrals: Christian Baker MD [Staff Physician] - - Patient Instructions Printed Discharge Instructions: DI for Lumbar Radiculopathy, Lumbar Radiculopathy Additional Instructions: Return to the emergency room for worsening symptoms. Please start the steroid pack in the morning and use the medication as directed. Do not take any anti- inflammatory such as Advil Motrin ibuprofen or Aleve. He may add Tylenol as needed. He may take that as directed. The muscle relaxers one tablet before bedtime and will make you sleepy. Follow-up with orthopedic spine surgery in 1- 2 days for further evaluation and treatment options. - Post Discharge Activity Forms/Work/School Notes: Back to Work
== END 2018-12-11 21:00 | disposition home or self-care (01) ==
LOC: JERFT 18:59
DX: M54.16 Radiculopathy, lumbar region (principal); I10 Essential (primary) hypertension; E78.00 Pure hypercholesterolemia, unspecified; Z88.8 Allergy status to other drugs, medicaments and biological substances
CPT/HCPCS: 99281-25

== ENCOUNTER 2019-02-01 04:39 | Inpatient (IN) | payer OTHER ==
[2019-02-01 05:05] VITALS: BMI 25.0
--- NOTE | 2019-02-01 06:02 | PDOC ---
History of Present Illness - General Chief Complaint: Pain Stated Complaint: ABD PAIN Time Seen by Provider: 02/01/19 05:45 - History of Present Illness Initial Comments: Jadon Lazaro is a 58yo man with a PMH of CAD (s/p ID last year), HTN, HLD who presents with 5 days of worsening abdominal pain and bloating. He reports that the pain started on Sunday, and he initially thought it was due to [employer] he ate that day. The pain was 2-3/10 intially. Throughout the week, the pain has become increasingly severe until it was finally 10/10 overnight. He describes the pain as sharp/stabbing and non-radiating. It does occasionally resolve for 10-15 minutes at a time, but he has not noticed any pattern to the improvement. He tried getting Mylanta and a probiotic on without any improvement in his pain. He feels that eating worsens the pain, so he has been reluctant to eat, and he has only had rice porridge for several days. Last night he did try eating a small amount of spaghetti, but the pain become significantly more severe. Mr Lazaro denies any nausea, vomiting, heartburn, diarrhea, constipation, fever, or blood in his stool. He has had a normal bowel movement daily. He has never had any abdominal surgery. He has no known sick contacts and has not eaten anything unusual during the week. Past History - Past Medical History Allergies/Adverse Reactions: Allergies Allergy/AdvReac Type Severity Reaction Status Date / Time latex Allergy Verified 02/01/19 05:07 adhesive tape AdvReac Verified 02/01/19 05:29 Home Medications: Ambulatory Orders Montelukast Sodium [Singulair] 10 mg PO HS 07/14/18 Aspirin [ASA -] 81 mg PO DAILY 02/01/19 Metoprolol Tartrate [Lopressor -] 25 mg PO DAILY 02/01/19 Cardiac Disorders: Yes (mild ID, PCI) COPD: No HTN: Yes Hypercholesterolemia: Yes - Surgical History Cardiac Surgery: Yes (PCI) - Immunization History Immunization Up to Date: Yes - Suicide/Smoking/Psychosocial Hx Smoking History: Never smoked Have you smoked in the past 12 months: No Hx Alcohol Use: No Drug/Substance Use Hx: No Substance Use Type: None Review of Systems - Review of Systems Comments:: General: No fevers, no chills, no weight or appetite change, no malaise HEENT: No changes in vision, no changes in hearing, no congestion, no sore throat CV: No chest pain, no palpitations, no LE edema Pulm: No SOB, no cough, no wheezing GI: See HPI : No frequency, no urgency, no dysuria Musc: No back pain, no joint swelling, no recent injury Skin: No rash, no lesions, no erythema Endo: No excessive thirst, no heat/cold intolerance Heme: No unusual bruising or bleeding, no swollen glands Neuro: No syncope, no numbness/tingling, no focal weakness Vasc: No claudication Psych: No recent change in mood, no SI or HI *Physical Exam - Vital Signs Last Vital Signs Temp Pulse Resp BP Pulse Ox 97.9 F 87 17 133/87 99 02/01/19 05:01 02/01/19 05:01 02/01/19 05:01 02/01/19 05:01 02/01/19 05:01 - Physical Exam Comments: General: Comfortable, no acute distress HEENT: PERRL, EOMI, MMM, voice normal, normal neck ROM Cards: RRR, no murmur appreciated Pulm: Comfortable on room air, clear to auscultation bilaterally Abd: Soft, mildly distended. Slight epigastric and periumbilical TTP. : No CVA tenderness Ext: Atraumatic. No LE edema. ROM intact. Vasc: Extremities WWP. Skin: Normal color, no rashes or lesions Neuro: A&Ox3, CN grossly intact, normal speech, motor/sensory grossly intact and symmetric Psych: Mood appropriate to situation ED Treatment Course - LABORATORY CBC & Chemistry Diagram: 02/01/19 06:30 02/01/19 06:30 Medical Decision Making - Medical Decision Making 02/01/19 05:58 Jadon Lazaro is a 58yo man with a PMH of CAD (s/p ID last year), HTN, HLD who presents with 5 days of worsening sharp, non-radiating abdominal pain and bloating. The symptoms worsen with eating. He has no associated nausea/vomiting , change in bowel habits, or fever. - Sharp epigastric and umbilical pain w/ bloating most suggestive of gastritis, especially as the pain worsens with eating. Less likely but will also evaluate for pancreatitis, gallstones/cholecystitis. Low suspicion given lack of associated symptoms or fever. - CBC, chemistry ordered for evaluation - EKG completed. NSR, HR 69. T-wave inversions seen on previous EKG's - Famotidine for symptoms - Discussed w/ Dr Cook. Will order non-contrast CT abd/pelvis to evaluate for colitis or other abdominal abnormalities 02/01/19 07:16 - Pt signed out to Dr Presley for the remainder of his ED management. Discussed with Dr Cook. Cecy Barone PGY1 *DC/Admit/Observation/Transfer Diagnosis at time of Disposition: Generalized abdominal pain - Referrals Referrals: ON STAFF,NOT [Primary Care Provider] - - Patient Instructions - Post Discharge Activity
--- NOTE | 2019-02-01 06:03 | PDOC ---
Attending Attestation - Resident Resident Name: Cecy Barone - ED Attending Attestation I have performed the following: I have examined & evaluated the patient, The case was reviewed & discussed with the resident, I agree w/resident's findings & plan - HPI HPI: 02/01/19 19:23 Pt comes with diffuse epigastric pain which is minimal in nature, however persistent. He is afebrile and he has been eating and moving his bowels normally. He has been having pain x 4 days. He ate [employer] the day the pain began, the following day ate fried chicken and bread, the following day ate rice porridge and tonight he ate some spaghetti that his son brought over for him. Pt has no flank pain and no vomiting. He is active and lifts at the gym. - Physicial Exam PE: 02/01/19 19:25 Agree with resident exam. Pt has gassy abd pain. He has no rebound and no guarding., No flank pain. He has some periumbilical pain. - Medical Decision Making 02/01/19 19:26 Pt will have labs and CT imaging and he will be signed out to the day team.
[2019-02-01] MEDS ORDERED: FAMOTIDINE 20 MG/50 ML IVPB 20 MG/50 ML MG IVPB ONE ×2 (06:16→06:34)
[2019-02-01] MEDS ORDERED: morphine CARPU-JECT 2 MG/1 ML DISP.SYRIN IVPUSH ONE (06:18)
[2019-02-01] MEDS ORDERED: morphine SULFATE 4 MG/ML VIAL ONE ×2 (06:33→08:20)
[2019-02-01 06:44] LABS: BASO % 0.7 % (0-2.0); EOS % 2.7 % (0-4.5); HEMATOCRIT 41.9 % (35.4-49); HEMOGLOBIN 14.2 GM/dL (11.7-16.9); LYMPH % 26.8 % (8-40); MCH 31.4 pg (25.7-33.7); MCHC 33.9 g/dl (32.0-35.9); MEAN CELL VOLUME 92.5 fl (80-96); MEAN PLT VOLUME 8.8 fl (7.5-11.1); MONO % 8.9 % (3.8-10.2); NEUT % 60.9 % (42.8-82.8); PLATELET COUNT 164 K/MM3 (134-434); RBC 4.54 M/mm3 (4.00-5.60); RDW 12.5 % (11.9-15.9); WHITE BLOOD COUNT 5.5 K/mm3 (4.0-10.0)
[2019-02-01 07:20] LABS: ALBUMIN 3.9 g/dl (3.4-5.0); BILIRUBIN,TOTAL 0.6 mg/dL (0.2-1); CALCIUM 8.6 mg/dL (8.5-10.1); CREATININE 0.9 mg/dL (0.55-1.3); MAGNESIUM 2.6 mg/dL (1.8-2.4); PHOSPHOROUS 2.3 mg/dL (2.5-4.9); POTASSIUM 3.8 mmol/L (3.5-5.1); TOT PROT 7.5 g/dl (6.4-8.2)
--- NOTE | 2019-02-01 07:25 | PDOC ---
*Physical Exam - Vital Signs Last Vital Signs Temp Pulse Resp BP Pulse Ox 97.9 F 87 17 133/87 99 02/01/19 05:01 02/01/19 05:01 02/01/19 05:01 02/01/19 05:01 02/01/19 05:01 <Harmeet Presley - Last Filed: 02/01/19 12:20> - Vital Signs Last Vital Signs Temp Pulse Resp BP Pulse Ox 97.9 F 87 17 133/87 99 02/01/19 05:01 02/01/19 05:01 02/01/19 05:01 02/01/19 05:01 02/01/19 05:01 <Ashlyn Diazlon - Last Filed: 02/01/19 13:04> ED Treatment Course - LABORATORY CBC & Chemistry Diagram: 02/01/19 06:30 02/01/19 06:30 - ADDITIONAL ORDERS Additional order review: Laboratory Results 02/01/19 06:30 Sodium 142 Potassium 3.8 Chloride 108 H Carbon Dioxide 29 Anion Gap 5 L BUN 11 Creatinine 0.9 Est GFR (CKD-EPI)AfAm 107.22 Est GFR (CKD-EPI)NonAf 92.51 Random Glucose 101 Calcium 8.6 Phosphorus 2.3 L Magnesium 2.6 H Total Bilirubin 0.6 AST 20 ALT 26 Alkaline Phosphatase 78 Total Protein 7.5 Albumin 3.9 02/01/19 06:30 RBC 4.54 MCV 92.5 MCHC 33.9 RDW 12.5 MPV 8.8 D Neutrophils % 60.9 Lymphocytes % 26.8 Monocytes % 8.9 Eosinophils % 2.7 D Basophils % 0.7 - Medications Given in the ED: ED Medications Discontinued Medications Generic Name Dose Route Start Last Admin Trade Name Freq PRN Reason Stop Dose Admin Famotidine/Sodium Chloride 20 mg in 50 mls @ 100 mls/hr 02/01/19 06:16 06:39 Pepcid 20 Mg Premixed Ivpb - IVPB 02/01/19 06:45 100 mls/hr ONCE ONE Administration Morphine Sulfate 1 mg 02/01/19 06:18 02/01/19 06:39 Morphine Injection - IVPUSH 02/01/19 06:19 1 mg ONCE ONE Administration <Harmeet Presley - Last Filed: 02/01/19 12:20> - LABORATORY CBC & Chemistry Diagram: 02/01/19 06:30 02/01/19 06:30 - ADDITIONAL ORDERS Additional order review: Laboratory Results 02/01/19 06:30 Sodium 142 Potassium 3.8 Chloride 108 H Carbon Dioxide 29 Anion Gap 5 L BUN 11 Creatinine 0.9 Est GFR (CKD-EPI)AfAm 107.22 Est GFR (CKD-EPI)NonAf 92.51 Random Glucose 101 Calcium 8.6 Phosphorus 2.3 L Magnesium 2.6 H Total Bilirubin 0.6 AST 20 ALT 26 Alkaline Phosphatase 78 Total Protein 7.5 Albumin 3.9 Lipase 226 02/01/19 06:30 RBC 4.54 MCV 92.5 MCHC 33.9 RDW 12.5 MPV 8.8 D Neutrophils % 60.9 Lymphocytes % 26.8 Monocytes % 8.9 Eosinophils % 2.7 D Basophils % 0.7 - Medications Given in the ED: ED Medications Discontinued Medications Generic Name Dose Route Start Last Admin Trade Name Freq PRN Reason Stop Dose Admin Famotidine/Sodium Chloride 20 mg in 50 mls @ 100 mls/hr 02/01/19 06:16 06:39 Pepcid 20 Mg Premixed Ivpb - IVPB 02/01/19 06:45 100 mls/hr ONCE ONE Administration Morphine Sulfate 1 mg 02/01/19 06:18 02/01/19 06:39 Morphine Injection - IVPUSH 02/01/19 06:19 1 mg ONCE ONE Administration Morphine Sulfate 4 mg 02/01/19 08:19 02/01/19 08:28 Morphine Injection - IVPUSH 02/01/19 08:20 4 mg ONCE ONE Administration <Ashlyn Diaz - Last Filed: 02/01/19 13:04> Medical Decision Making - Medical Decision Making 02/01/19 07:25 Pt signed out to me by Dr. Barone. 58M who presents with diffuse abdominal pain pending labs and CT. 02/01/19 09:04 CT shows diffuse fat stranding w/ mild pancreatitis seen vs suspicion for CA. Will admit. Pt drying oven tender on exam, giving 4mg morphine for comfort. Will microblog for admission. 02/01/19 09:27 Case d/w Dr. Castro who agrees with plan for observation. 02/01/19 10:04 Troponin elevated for 0630. Will repeat now. 02/01/19 10:51 Troponin unchanged (0.31 from 0.3 4 hours ago). 02/01/19 11:23 Case d/w cards, Dr. Urbina, who will follow pt. 02/01/19 12:[address] Nuria Argueta. <Harmeet Presley - Last Filed: 02/01/19 12:20> - Medical Decision Making pt signed out from Dr Cook pending CT imaging labs and lytes normal lipase added on also normal, as CT with fat stranding around pancreas diffusely , involving surrounding mesentery as well., due to persistent pain, intractible pain, admit for serial exams, GI cs to Dr Castro, for suspicion of acute pancreatitis. 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 bedside echo: no acute findings, no e/o pericardial effusion, normal EF on visual estimation, RV<LV 0.6:1 will admit for pancreatitis/NSTEMI, cards cs with Dr Barney/Yuliana crooks. tele monitor, pain control and serial trop/ekg and medical management. 02/01/19 09:03 02/01/19 11:06 02/01/19 13:03 <Ashlyn Diaz - Last Filed: 02/01/19 13:04> *DC/Admit/Observation/Transfer - Discharge Dispostion Decision to Admit order: Yes <Harmeet Presley - Last Filed: 02/01/19 12:20> - Discharge Dispostion Decision to Admit order: Yes Decision to Admit order Date/Time: 02/01/19 11:54 <Ashlyn Diaz - Last Filed: 02/01/19 13:04> Diagnosis at time of Disposition: Generalized abdominal pain, NSTEMI (non-ST elevated myocardial infarction), Abnormal EKG Pancreatitis Qualifiers: Chronicity: acute - Discharge Dispostion Condition at time of disposition: Guarded
[2019-02-01] MEDS ORDERED: morphine CARPU-JECT 4 MG/1 ML DISP.SYRIN IVPUSH ONE (08:19)
[2019-02-01] MEDS ORDERED: SODIUM CHLORIDE 1,000 ML IV SCH (10:00)
[2019-02-01] MEDS ORDERED: ASPIRIN 81 MG CHEWABLE TABLETS PO ONE (10:36)
[2019-02-01] MEDS ORDERED: ASPIRIN 81 MG CHEWABLE TABLETS ONE (11:11)
--- NOTE | 2019-02-01 11:40 | EKG ---
Test Reason : Blood Pressure : / mmHG Vent. Rate : 069 BPM Atrial Rate : 069 BPM P-R Int : 164 ms QRS Dur : 088 ms QT Int : 426 ms P-R-T Axes : 066 021 145 degrees QTc Int : 456 ms NORMAL SINUS RHYTHM LEFT VENTRICULAR HYPERTROPHY WITH REPOLARIZATION ABNORMALITY ABNORMAL ECG WHEN COMPARED WITH ECG OF 14-JUL-2018 14:00, NO SIGNIFICANT CHANGE WAS FOUND Confirmed by EDWINA MAYA, KERRY ([id number]) on 02/01/2019 11:40:36 AM Referred By: Confirmed By:KERRY BLAND MD
[2019-02-01] MEDS ORDERED: ONDANSETRON 4 MG/2 ML VIAL IVPUSH PRN (11:57)
[2019-02-01] MEDS ORDERED: D5-1/2NS+10 MEQ KCL - 10 MEQ/1,000 ML INFUS.BAG IV SCH (12:00)
--- NOTE | 2019-02-01 12:06 | HP ---
Admitting History and Physical - Admission Chief Complaint: Epigastric pain History of Present Illness: 58yrs old man known case of HTN, Dyslipedemia, non obstructive CAD s/p NSTEMI , Cath on 07/15/2019 at [facility] that showed CAD 50% prox LCx, luminal irregularities, elevated LVEDP 23 mmHg, LV gram c/w spade-like apical hypertrophic cardiomyopathy, patient was discharged on B Blockers, statin and ASA, last month his PMD advised to stop as lab shows mild elevation of Liver enzymes , today present with c/o epigastric keith since last Sunday intially it was intermittent but last night worsened to 10/10 , no radiation, associated with mild nausea, no vomiting or diarrhea, denies any fever last BM was yesterday, lab shows normal, CBC, CMP anfd Lipase mild elevation of Trop I, CT abd shows early pancreatitis, Cardiology and GI consulted patient is getting admitted for observation and further management. History Source: Patient - Past Medical History Cardiovascular: Yes: CAD, HTN, Hyperlipdemia - Smoking History Smoking history: Never smoked Have you smoked in the past 12 months: No - Alcohol/Substance Use Hx Alcohol Use: Yes (Social last was few days ago) - Social History Usual Living Arrangement: Yes: With Spouse Home Medications - Allergies Allergies/Adverse Reactions: Allergies Allergy/AdvReac Type Severity Reaction Status Date / Time latex Allergy Verified 02/01/19 05:07 adhesive tape AdvReac Verified 02/01/19 05:29 - Home Medications Home Medications: Ambulatory Orders Montelukast Sodium [Singulair] 10 mg PO HS 07/14/18 Aspirin [ASA -] 81 mg PO DAILY 02/01/19 Metoprolol Tartrate [Lopressor -] 25 mg PO DAILY 02/01/19 Family Disease History - Family Disease History Family Disease History: Heart Disease: Father ([place] at age 80) Review of Systems - Review of Systems Constitutional: reports: No Symptoms. denies: Chills Eyes: reports: No Symptoms. denies: Blind Spots, Blurred Vision, Double Vision HENT: denies: Difficult Swallowing, Ear Discharge, Ear Pain, Epistaxis Neck: denies: No Symptoms, Decreased ROM, Lumps Cardiovascular: reports: No Symptoms. denies: Chest Pain, Edema, Palpitations, Shortness of Breath Respiratory: denies: Cough, Exercise Intolerance, Hemoptysis, Orthopnea, SOB Gastrointestinal: reports: Abdominal Pain, Nausea. denies: Vomiting, Vomiting Blood Genitourinary: denies: Burning, Discharge Musculoskeletal: denies: Back Pain, Crepitus, Decreased ROM Neurological: denies: Change in LOC, Change in Speech, Confusion Endocrine: denies: Excessive Sweating, Flushing, Increased Hunger Psychiatric: denies: No Symptoms, Altered Sleep Pattern Physical Examination Vital Signs: Vital Signs Temperature 97.9 F 02/01/19 05:01 Pulse Rate 68 02/01/19 09:26 Respiratory Rate 14 02/01/19 09:26 Blood Pressure 115/82 02/01/19 09:26 O2 Sat by Pulse Oximetry (%) 98 02/01/19 09:26 Middle aged man c/o epigastric Pain HEENT: Mm moist, no anemia, PERRLA EOMI NECK: No JVD No Bruit CHEST: CTA B/L CVS: S1S2 R no m/g/r ABD: No distention, epigastric Tenderness , mild rebound no gaurding, BS + [employer] LEED: AOX3 non focal Labs: CBC, BMP 02/01/19 06:30 02/01/19 06:30 CBC,CMP WBC 5.5 K/mm3 (4.0-10.0) 02/01/19 06:30 RBC 4.54 M/mm3 (4.00-5.60) 02/01/19 06:30 Hgb 14.2 GM/dL (11.7-16.9) 02/01/19 06:30 Hct 41.9 % (35.4-49) 02/01/19 06:30 MCV 92.5 fl (80-96) 02/01/19 06:30 MCH 31.4 pg (25.7-33.7) 02/01/19 06:30 MCHC 33.9 g/dl (32.0-35.9) 02/01/19 06:30 RDW 12.5 % (11.9-15.9) 02/01/19 06:30 Plt Count 164 K/MM3 (134-434) 02/01/19 06:30 MPV 8.8 fl (7.5-11.1) D 02/01/19 06:30 Absolute Neuts (auto) 3.4 K/mm3 (1.5-8.0) 02/01/19 06:30 Neutrophils % 60.9 % (42.8-82.8) 02/01/19 06:30 Lymphocytes % 26.8 % (8-40) 02/01/19 06:30 Monocytes % 8.9 % (3.8-10.2) 02/01/19 06:30 Eosinophils % 2.7 % (0-4.5) D 02/01/19 06:30 Basophils % 0.7 % (0-2.0) 02/01/19 06:30 Nucleated RBC % 0 % (0-0) 02/01/19 06:30 Sodium 142 mmol/L (136-145) 02/01/19 06:30 Potassium 3.8 mmol/L (3.5-5.1) 02/01/19 06:30 Chloride 108 mmol/L (98-107) H 02/01/19 06:30 Carbon Dioxide 29 mmol/L (21-32) 02/01/19 06:30 Anion Gap 5 MMOL/L (8-16) L 02/01/19 06:30 BUN 11 mg/dL (7-18) 02/01/19 06:30 Creatinine 0.9 mg/dL (0.55-1.3) 02/01/19 06:30 Est GFR (CKD-EPI)AfAm 107.22 02/01/19 06:30 Est GFR (CKD-EPI)NonAf 92.51 02/01/19 06:30 Random Glucose 101 mg/dL (74-106) 02/01/19 06:30 Calcium 8.6 mg/dL (8.5-10.1) 02/01/19 06:30 Phosphorus 2.3 mg/dL (2.5-4.9) L 02/01/19 06:30 Magnesium 2.6 mg/dL (1.8-2.4) H 02/01/19 06:30 Total Bilirubin 0.6 mg/dL (0.2-1) 02/01/19 06:30 AST 20 U/L (15-37) 02/01/19 06:30 ALT 26 U/L (13-61) 02/01/19 06:30 Alkaline Phosphatase 78 U/L (45-117) 02/01/19 06:30 Troponin I 0.31 ng/ml (0.00-0.05) H 02/01/19 10:12 Total Protein 7.5 g/dl (6.4-8.2) 02/01/19 06:30 Albumin 3.9 g/dl (3.4-5.0) 02/01/19 06:30 Lipase 226 U/L (73-393) 02/01/19 06:30 Imaging - Results Cat Scan: Report Reviewed (Abdomen; Mild acute pancreatitis of pancreatic head) EKG: Report Reviewed (HR 68 NSR diiffuse T wave inversion I II, aVL, V2-V6) Problem List - Problems (1) Pancreatitis Assessment/Plan: normal lIpse CT is suggestive of Mild pancreatitis of pancreatic head serial Lipase, Diet as tolerate, Pain control, F/U GI recommendations. Code(s): K85.90 - ACUTE PANCREATITIS WITHOUT NECROSIS OR INFECTION, UNSP Qualifiers: Chronicity: acute (2) Elevated troponin I level Assessment/Plan: Non obstructive CAD diagnosed in 06/2018, no intervention was done excellent ET mild elevation of trop I will F/U serial Troponin resume Metoprolol, ASA and add Statin at home dose Cardiology consult, patient had a ECHO and Holter at [facility] few months ago, Lipid Panel TSH Code(s): R74.8 - ABNORMAL LEVELS OF OTHER SERUM ENZYMES (3) HTN (hypertension) Assessment/Plan: Well controlled cont Metpoprolol 25 mg daily Code(s): I10 - ESSENTIAL (PRIMARY) HYPERTENSION Qualifiers: Hypertension type: essential hypertension Qualified Code(s): I10 - Essential (primary) hypertension (4) Hypercholesteremia Assessment/Plan: add Lipitor f/u LFTs and fasting Lipid panel currently LFTs are normal Code(s): E78.00 - PURE HYPERCHOLESTEROLEMIA, UNSPECIFIED (5) Apical variant hypertrophic cardiomyopathy Assessment/Plan: Cath in 06/2018 shows Apical hypertrophic Cardiomyopathy explains diffuse St t changes. Consider cardianc MRI as out patient. Code(s): I42.2 - OTHER HYPERTROPHIC CARDIOMYOPATHY
[2019-02-01] MEDS ORDERED: PANTOPRAZOLE SODIUM 40 MG VIAL ONE (12:19)
[2019-02-01] MEDS: PANTOPRAZOLE SODIUM 40 MG VIAL IVPUSH SCH (12:25)
--- NOTE | 2019-02-01 15:33 | CON.GI ---
Consult Consult Specialty:: GI Referred by:: Dr Nuria Argueta Reason for Consultation:: abd pain, abnl CT abd - History of Present Illness Chief Complaint: abd pain x 4 days History of Present Illness: 58 y.o. M developed abd pain after lunch 4 days ago. Ate lightly for several days but last night had spaghetti, after which he developed more severe pain leading him to come to ER at 4 a.m. In ER labs were all WNL but CT of abdomen showed inflammatory changes around the head of the pancreas. No h/o alcohol abuse or hypertriglyceridemia. CBC,CMP WBC 5.5 K/mm3 (4.0-10.0) 02/01/19 06:30 RBC 4.54 M/mm3 (4.00-5.60) 02/01/19 06:30 Hgb 14.2 GM/dL (11.7-16.9) 02/01/19 06:30 Hct 41.9 % (35.4-49) 02/01/19 06:30 MCV 92.5 fl (80-96) 02/01/19 06:30 MCH 31.4 pg (25.7-33.7) 02/01/19 06:30 MCHC 33.9 g/dl (32.0-35.9) 02/01/19 06:30 RDW 12.5 % (11.9-15.9) 02/01/19 06:30 Plt Count 164 K/MM3 (134-434) 02/01/19 06:30 MPV 8.8 fl (7.5-11.1) D 02/01/19 06:30 Absolute Neuts (auto) 3.4 K/mm3 (1.5-8.0) 02/01/19 06:30 Neutrophils % 60.9 % (42.8-82.8) 02/01/19 06:30 Lymphocytes % 26.8 % (8-40) 02/01/19 06:30 Monocytes % 8.9 % (3.8-10.2) 02/01/19 06:30 Eosinophils % 2.7 % (0-4.5) D 02/01/19 06:30 Basophils % 0.7 % (0-2.0) 02/01/19 06:30 Nucleated RBC % 0 % (0-0) 02/01/19 06:30 Sodium 142 mmol/L (136-145) 02/01/19 06:30 Potassium 3.8 mmol/L (3.5-5.1) 02/01/19 06:30 Chloride 108 mmol/L (98-107) H 02/01/19 06:30 Carbon Dioxide 29 mmol/L (21-32) 02/01/19 06:30 Anion Gap 5 MMOL/L (8-16) L 02/01/19 06:30 BUN 11 mg/dL (7-18) 02/01/19 06:30 Creatinine 0.9 mg/dL (0.55-1.3) 02/01/19 06:30 Est GFR (CKD-EPI)AfAm 107.22 02/01/19 06:30 Est GFR (CKD-EPI)NonAf 92.51 02/01/19 06:30 Random Glucose 101 mg/dL (74-106) 02/01/19 06:30 Calcium 8.6 mg/dL (8.5-10.1) 02/01/19 06:30 Phosphorus 2.3 mg/dL (2.5-4.9) L 02/01/19 06:30 Magnesium 2.6 mg/dL (1.8-2.4) H 02/01/19 06:30 Total Bilirubin 0.6 mg/dL (0.2-1) 02/01/19 06:30 AST 20 U/L (15-37) 02/01/19 06:30 ALT 26 U/L (13-61) 02/01/19 06:30 Alkaline Phosphatase 78 U/L (45-117) 02/01/19 06:30 Troponin I 0.31 ng/ml (0.00-0.05) H 02/01/19 10:12 Total Protein 7.5 g/dl (6.4-8.2) 02/01/19 06:30 Albumin 3.9 g/dl (3.4-5.0) 02/01/19 06:30 Triglycerides 128 mg/dL (0-150) 02/01/19 10:12 Cholesterol 199 mg/dL (50-200) 02/01/19 10:12 Total LDL Cholesterol 144 mg/dL (5-100) H 02/01/19 10:12 HDL Cholesterol 36 mg/dL (40-60) L 02/01/19 10:12 Lipase 226 U/L (73-393) 02/01/19 06:30 - History Source History Provided By: Patient, Medical Record Limitations to Obtaining History: No Limitations - Past Medical History Cardio/Vascular: Yes: CAD, HTN, Hyperlipdemia, [place] - Alcohol/Substance Use Hx Alcohol Use: Yes (Social last was few days ago) - Smoking History Smoking history: Never smoked Have you smoked in the past 12 months: No Home Medications - Allergies Allergies/Adverse Reactions: Allergies Allergy/AdvReac Type Severity Reaction Status Date / Time latex Allergy Verified 02/01/19 05:07 adhesive tape AdvReac Verified 02/01/19 05:29 - Home Medications Home Medications: Ambulatory Orders Montelukast Sodium [Singulair] 10 mg PO HS 07/14/18 Aspirin [ASA -] 81 mg PO DAILY 02/01/19 Metoprolol Tartrate [Lopressor -] 25 mg PO DAILY 02/01/19 Family Disease History - Family Disease History Family Disease History: Heart Disease: Father ([place] at age 80) Review of Systems - Review of Systems Gastrointestinal: reports: Abdominal Pain Physical Exam-GI Vital Signs: Vital Signs Temperature 98 F 02/01/19 14:19 Pulse Rate 72 02/01/19 14:19 Respiratory Rate 20 02/01/19 14:19 Blood Pressure 155/92 02/01/19 14:19 O2 Sat by Pulse Oximetry (%) 98 02/01/19 12:15 Gastrointestinal Inspection: Yes: WNL ...Auscultate: Yes: Normoactive Bowel Sounds ...Palpate: Yes: Soft ...Rectal Exam: Yes: Deferred Labs: CBC, BMP 02/01/19 06:30 02/01/19 06:30 Imaging - Results Cat Scan: Report Reviewed, Image Reviewed Problem List - Problems (1) Pancreatitis Code(s): K85.90 - ACUTE PANCREATITIS WITHOUT NECROSIS OR INFECTION, UNSP Qualifiers: Chronicity: acute Assessment/Plan Pt now says he is pain-free and I can palpate quite deeply without eliciting any tenderness. The CT scan stands in contrast to the lab work, which is remarkably normal. He has no particular reason to have pancreatitis; he is not on any medication known to cause pancreatitis, he is not an alcoholic, and his triglycerides were not elevated last year when he had his [place]. If the pancreatic inflammation is real then it raises the possibility of a tumor in the head of the pancreas. Suggest: 1) abdominal ultrasound to look for gallstones 2) attempt to feed patient 3) after the initial inflammation has subsided, to obtain a repeat CT with IV and oral contrast and "pancreatic protocol".
--- NOTE | 2019-02-01 15:56 | CON.CARD ---
Consult Consult Specialty:: cardiology Reason for Consultation:: HTN; elevated TNI - History of Present Illness Chief Complaint: Pt A&Ox3; no mor "throbbing" in left chest area; no abdominal pain. History of Present Illness: Pt is a 58yo man (. [facility]) with a PMH of CAD (s/p NH 06/2018, with coronary angiogram by Dr. Barney at [facility] that pt reports did not require a stent), HTN, HLD, lower back radiculopathy (hospitalized for it 11/2018), who presents with 5 days of worsening abdominal pain and bloating. He reports that the pain started on Sunday, and he initially thought it was due to [employer] he ate that day. The pain was 2-3/10 intially. Throughout the week, the pain has become increasingly severe until it was finally 10/10 overnight. He describes the pain as sharp/stabbing and non-radiating. It does occasionally resolve for 10-15 minutes at a time, but he has not noticed any pattern to the improvement. He tried getting Mylanta and a probiotic on without any improvement in his pain. He feels that eating worsens the pain, so he has been reluctant to eat, and he has only had rice porridge for several days. Last night he did try eating a small amount of spaghetti, but the pain become significantly more severe. Unload Associate: Dr. Harmeet Barney - History Source History Provided By: Patient, Medical Record Limitations to Obtaining History: No Limitations - Past Medical History Cardio/Vascular: Yes: CAD, HTN, Hyperlipdemia, [place] - Alcohol/Substance Use Hx Alcohol Use: Yes (Social last was few days ago) - Smoking History Smoking history: Never smoked Have you smoked in the past 12 months: No Home Medications - Allergies Allergies/Adverse Reactions: Allergies Allergy/AdvReac Type Severity Reaction Status Date / Time latex Allergy Verified 02/01/19 05:07 adhesive tape AdvReac Verified 02/01/19 05:29 - Home Medications Home Medications: Ambulatory Orders Montelukast Sodium [Singulair] 10 mg PO HS 07/14/18 Aspirin [ASA -] 81 mg PO DAILY 02/01/19 Metoprolol Tartrate [Lopressor -] 25 mg PO DAILY 02/01/19 Family Disease History - Family Disease History Family Disease History: Heart Disease: Father ([place] at age 80) Review of Systems - Review of Systems Constitutional: reports: Loss of Appetite Eyes: reports: No Symptoms HENT: reports: No Symptoms Cardiovascular: reports: Chest Pain (atypical; throbbing at rest, not with exertion) Respiratory: reports: No Symptoms Gastrointestinal: reports: Abdominal Pain, Bloating Genitourinary: reports: No Symptoms Breasts: reports: No Symptoms Reported Musculoskeletal: reports: Back Pain Integumentary: reports: No Symptoms Neurological: reports: No Symptoms Endocrine: reports: No Symptoms Hematology/Lymphatic: reports: No Symptoms Psychiatric: reports: No Symptoms - Risk Factors Known Risk Factors: Yes: Age (CAD), Gender, Hypercholesterolemia, Hypertension, Other (CAD) Vital Signs: Vital Signs Temperature 98 F 02/01/19 14:19 Pulse Rate 72 02/01/19 14:19 Respiratory Rate 20 02/01/19 14:19 Blood Pressure 155/92 02/01/19 14:19 O2 Sat by Pulse Oximetry (%) 99 02/01/19 15:10 Constitutional: Yes: Calm Eyes: Yes: WNL HENT: Yes: WNL Neck: Yes: WNL Respiratory: Yes: WNL Gastrointestinal: Yes: Soft. No: Tenderness Renal/: No: Anuria Cardiovascular: Yes: WNL JVD: No Carotid Bruit: No PMI: Non-Displaced Heart Sounds: Yes: S1, S2, S4 Murmur: Yes: Systolic Murmur, Grade 1 Musculoskeletal: Yes: WNL Extremities: Yes: WNL Edema: No Integumentary: Yes: WNL Neurological: Yes: WNL ...Motor Strength: WNL Psychiatric: Yes: WNL - Other Data Labs, Other Data: CBC, BMP 02/01/19 06:30 02/01/19 06:30 Troponin, BNP 02/01/19 02/01/19 06:30 10:12 Troponin I 0.30 H 0.31 H Troponin, BNP 02/01/19 02/01/19 06:30 10:12 Troponin I 0.30 H 0.31 H Prior Cardiac Procedures: Cardiac Catheterization Imaging - Results Chest X-ray: Image Reviewed EKG: Image Reviewed Problem List - Problems (1) Lumbar radiculopathy Code(s): M54.16 - RADICULOPATHY, LUMBAR REGION (2) Seasonal allergic reaction Assessment/Plan: On Singulair; not on pumps. Denies hx adult asthma (had it as a child). Code(s): J30.2 - OTHER SEASONAL ALLERGIC RHINITIS (3) Elevated troponin I level Assessment/Plan: 0.3; CK/MB relative index pending.F/u TNI serially. EKG: NSR; LVH with repolarization abnormality: marked T wave inversions V2-6, no change since 06/2018. F/u ECHo for LVEF, wall motion and thickness. Hx CAD with nonobstructive CAD 06/2018. Code(s): R74.8 - ABNORMAL LEVELS OF OTHER SERUM ENZYMES (4) Hypercholesteremia Code(s): E78.00 - PURE HYPERCHOLESTEROLEMIA, UNSPECIFIED (5) NSTEMI (non-ST elevated myocardial infarction) Assessment/Plan: 11/2017: nonobstructive CAD On ASA 81 mg daily. Continue metoprolol (change to ER for better 24 hour coverage and compliance). Start atorvastatin 80 mg daily (elevated LDL; s/p [place]). Pt apparently had ?mild increase LFTs that led to statin being discotinued, but they are normal presently, and LDL is >130mg/dl, with recent [place]. Discussed with Dr. Castro, GI: no cntraineications to statin presently. Will start and f/u LFTs and CK. Code(s): I21.4 - NON-ST ELEVATION (NSTEMI) MYOCARDIAL INFARCTION (6) Pancreatitis Assessment/Plan: Gi workup in progress. No abdominal pain presently. Code(s): K85.90 - ACUTE PANCREATITIS WITHOUT NECROSIS OR INFECTION, UNSP Qualifiers: Chronicity: acute (7) Chest pain Code(s): R07.9 - CHEST PAIN, UNSPECIFIED (8) HTN (hypertension) Code(s): I10 - ESSENTIAL (PRIMARY) HYPERTENSION Qualifiers: Hypertension type: essential hypertension Qualified Code(s): I10 - Essential (primary) hypertension (9) Hypercholesterolemia Code(s): E78.00 - PURE HYPERCHOLESTEROLEMIA, UNSPECIFIED
[2019-02-01] MEDS ORDERED: ATORVASTATIN CA 80 MG TABLET (FP) PO ONE (16:27)
[2019-02-01] MEDS ORDERED: metoPROLOL SUCCINATE 25 MG TAB.SR.24H (FP) PO SCH (16:30)
[2019-02-01] MEDS: metoPROLOL SUCCINATE 25 MG TAB.SR.24H (FP) PO SCH (17:09)
[2019-02-01] MEDS: MONTELUKAST NA 10 MG TABLET PO SCH (21:00)
[2019-02-01] MEDS ORDERED: FAMOTIDINE 20 MG/50 ML IVPB 20 MG/50 ML MG IVPB SCH (22:00)
[2019-02-02 07:39] LABS: BASO % 0.9 % (0-2.0); EOS % 2.9 % (0-4.5); HEMATOCRIT 40.8 % (35.4-49); HEMOGLOBIN 13.7 GM/dL (11.7-16.9); LYMPH % 31.5 % (8-40); MCH 31.3 pg (25.7-33.7); MCHC 33.6 g/dl (32.0-35.9); MEAN CELL VOLUME 93.1 fl (80-96); MEAN PLT VOLUME 9.7 fl (7.5-11.1); MONO % 8.3 % (3.8-10.2); NEUT % 56.4 % (42.8-82.8); PLATELET COUNT 162 K/MM3 (134-434); RBC 4.38 M/mm3 (4.00-5.60); RDW 12.5 % (11.9-15.9); WHITE BLOOD COUNT 5.7 K/mm3 (4.0-10.0)
[2019-02-02 07:46] LABS: ALBUMIN 3.4 g/dl (3.4-5.0); BILIRUBIN,TOTAL 1.4 mg/dL (0.2-1); CALCIUM 8.7 mg/dL (8.5-10.1); CREATININE 0.9 mg/dL (0.55-1.3); POTASSIUM 3.9 mmol/L (3.5-5.1); TOT PROT 6.8 g/dl (6.4-8.2)
[2019-02-02] MEDS ORDERED: METOPROLOL TARTRATE 25 MG TABLET (FP) PO SCH (10:00)
[2019-02-02] MEDS: ASPIRIN 81 MG CHEWABLE TABLETS PO SCH (11:12)
[2019-02-02] MEDS: PANTOPRAZOLE SODIUM 40 MG VIAL IVPUSH SCH (11:12)
[2019-02-02] MEDS: metoPROLOL SUCCINATE 25 MG TAB.SR.24H (FP) PO SCH (11:12)
--- NOTE | 2019-02-02 11:44 | PN ---
Progress Note, Physician Chief Complaint: Pt A&Ox3; vague, mild diffuse abdominal discomfort he thinks began today when a window was left opened. No chest pain. History of Present Illness: Pt is a 58yo man (. [facility]) with a PMH of CAD (s/p TN 06/2018, with coronary angiogram by Dr. Barney at [place] that pt reports did not require a stent), HTN, HLD, lower back radiculopathy (hospitalized for it 11/2018), who presents with 5 days of worsening abdominal pain and bloating. He reports that the pain started on Sunday, and he initially thought it was due to [employer] he ate that day. The pain was 2-3/10 intially. Throughout the week, the pain has become increasingly severe until it was finally 10/10 overnight. He describes the pain as sharp/stabbing and non-radiating. It does occasionally resolve for 10-15 minutes at a time, but he has not noticed any pattern to the improvement. He tried getting Mylanta and a probiotic on without any improvement in his pain. He feels that eating worsens the pain, so he has been reluctant to eat, and he has only had rice porridge for several days. Last night he did try eating a small amount of spaghetti, but the pain become significantly more severe. [employer]: Dr. Harmeet Barney - Current Medication List Current Medications: Active Medications Aspirin (Asa -) 81 mg PO DAILY [facility] Last Admin: 02/02/19 11:12 Dose: 81 mg Atorvastatin Calcium (Lipitor -) 80 mg PO [facility] Metoprolol Succinate (Toprol Xl -) 25 mg PO DAILY [facility] Last Admin: 02/02/19 11:12 Dose: 25 mg Montelukast Sodium (Singulair -) 10 mg PO HS [facility] Last Admin: 02/01/19 21:00 Dose: 10 mg Morphine Sulfate (Morphine Sulfate) 4 mg IVPUSH Q6H PRN PRN Reason: PAIN LEVEL 4 - 6 Ondansetron HCl (Zofran Injection) 4 mg IVPUSH Q6H PRN PRN Reason: NAUSEA Pantoprazole Sodium (Protonix Iv) 40 mg IVPUSH DAILY [facility] Last Admin: 02/02/19 11:12 Dose: 40 mg - Objective Vital Signs: Vital Signs Temperature 97.8 F 02/02/19 10:00 Pulse Rate 63 02/02/19 10:00 Respiratory Rate 20 02/02/19 10:00 Blood Pressure 125/75 02/02/19 10:00 O2 Sat by Pulse Oximetry (%) 97 02/02/19 09:00 Constitutional: Yes: Calm Eyes: Yes: WNL HENT: Yes: WNL Neck: Yes: WNL Cardiovascular: Yes: Murmur, S1, S2 Respiratory: Yes: WNL Gastrointestinal: Yes: Soft. No: Tenderness ...Rectal Exam: Yes: Deferred Genitourinary: No: Anuria Breast(s): Yes: WNL Musculoskeletal: Yes: WNL Extremities: Yes: WNL Edema: No Peripheral Pulses WNL: Yes Integumentary: Yes: WNL Neurological: Yes: WNL ...Motor Strength: WNL Psychiatric: Yes: WNL Labs: CBC, BMP 02/02/19 06:23 02/02/19 06:23 Abnormal Lab Results 02/01/19 02/01/19 02/01/19 06:30 10:12 18:58 Chloride 108 H Anion Gap 5 L Phosphorus 2.3 L Magnesium 2.6 H Total Bilirubin Troponin I 0.30 H 0.31 H 0.32 H Total LDL Cholesterol 144 H HDL Cholesterol 36 L 02/02/19 06:23 Chloride 110 H Anion Gap 6 L Phosphorus Magnesium Total Bilirubin 1.4 H Troponin I Total LDL Cholesterol 120 H HDL Cholesterol 33 L - ....Imaging Other: Image Reviewed (telemetry: NSR; no arrhytymias) Problem List - Problems (1) Lumbar radiculopathy Code(s): M54.16 - RADICULOPATHY, LUMBAR REGION (2) Seasonal allergic reaction Assessment/Plan: On Singulair; not on pumps. Denies hx adult asthma (had it as a child). Code(s): J30.2 - OTHER SEASONAL ALLERGIC RHINITIS (3) Elevated troponin I level Assessment/Plan: 0.3 x 3; CK/MB relative index pending.F/u TNI serially. EKG: NSR; LVH with repolarization abnormality: marked T wave inversions V2-6, no change since 06/2018. F/u ECHo for LVEF, wall motion and thickness. Hx CAD with nonobstructive CAD 06/2018. Code(s): R74.8 - ABNORMAL LEVELS OF OTHER SERUM ENZYMES (4) Hypercholesteremia Assessment/Plan: elevated LDL; restarted on atorvastatin. Code(s): E78.00 - PURE HYPERCHOLESTEROLEMIA, UNSPECIFIED (5) NSTEMI (non-ST elevated myocardial infarction) Assessment/Plan: 11/2017: nonobstructive CAD On ASA 81 mg daily. Continue metoprolol (change to ER for better 24 hour coverage and compliance). Start atorvastatin 80 mg daily (elevated LDL; s/p TN). Pt apparently had ?mild increase LFTs that led to statin being discotinued, but they are normal presently, and LDL is >130mg/dl, with recent TN. Discussed with Dr. Castro, GI: no cntraindications to statin presently. Will start and f/u LFTs and CK. F/u EKG: NSR: repolarization abnormalities. ECHO for LVEF, wall motion and thickness (r/o HCM). Code(s): I21.4 - NON-ST ELEVATION (NSTEMI) MYOCARDIAL INFARCTION (6) Pancreatitis Assessment/Plan: Gi workup in progress. Code(s): K85.90 - ACUTE PANCREATITIS WITHOUT NECROSIS OR INFECTION, UNSP Qualifiers: Chronicity: acute (7) Chest pain Assessment/Plan: atypical; no further "throbbing" pain at rest. See under NSTEMI. Code(s): R07.9 - CHEST PAIN, UNSPECIFIED (8) HTN (hypertension) Assessment/Plan: On Metoprolol ER> Code(s): I10 - ESSENTIAL (PRIMARY) HYPERTENSION Qualifiers: Hypertension type: essential hypertension Qualified Code(s): I10 - Essential (primary) hypertension (9) Hypercholesterolemia Assessment/Plan: Atorvastatin restarted (80 mg daily). Code(s): E78.00 - PURE HYPERCHOLESTEROLEMIA, UNSPECIFIED (10) Abnormal EKG Assessment/Plan: f/u on telemetry. F/u ECHO for LVEF, wall motion and thicknesses. R/o HCM. Code(s): R94.31 - ABNORMAL ELECTROCARDIOGRAM [ECG] [EKG]
--- NOTE | 2019-02-02 12:24 | EKG ---
Test Reason : Blood Pressure : / mmHG Vent. Rate : 061 BPM Atrial Rate : 061 BPM P-R Int : 144 ms QRS Dur : 090 ms QT Int : 438 ms P-R-T Axes : 054 031 166 degrees QTc Int : 440 ms NORMAL SINUS RHYTHM WITH SINUS ARRHYTHMIA LEFT VENTRICULAR HYPERTROPHY WITH REPOLARIZATION ABNORMALITY ABNORMAL ECG WHEN COMPARED WITH ECG OF 01-FEB-2019 10:31, NO SIGNIFICANT CHANGE WAS FOUND Confirmed by EDWINA MAYA, KERRY ([id number]) on 02/02/2019 12:24:35 PM Referred By: Mattie PEGUERO Confirmed By:KERRY BLAND MD
--- NOTE | 2019-02-02 12:25 | EKG ---
Test Reason : Blood Pressure : / mmHG Vent. Rate : 068 BPM Atrial Rate : 068 BPM P-R Int : 174 ms QRS Dur : 086 ms QT Int : 438 ms P-R-T Axes : 064 032 165 degrees QTc Int : 465 ms NORMAL SINUS RHYTHM LEFT VENTRICULAR HYPERTROPHY WITH REPOLARIZATION ABNORMALITY ABNORMAL ECG WHEN COMPARED WITH ECG OF 01-FEB-2019 05:30, NO SIGNIFICANT CHANGE WAS FOUND Confirmed by KERRY BLAND MD ([id number]) on 02/02/2019 12:25:10 PM Referred By: Confirmed By:KERRY BLAND MD
--- NOTE | 2019-02-02 16:16 | PN ---
Physical Exam: SUBJECTIVE: Patient seen and examined. He reports having periumbilical discomfort after eating lunch today. He denies chest pain, SOB, palpitations, nausea, diaphoresis. OBJECTIVE: Vital Signs Period Temp Pulse Resp BP Sys/Cruz Pulse Ox Last 24 Hr 97.8 F-99.3 F 58-73 20-20 99-138/52-80 97 GENERAL: The patient is awake, alert, and fully oriented, in no acute distress. LUNGS: Breath sounds equal, clear to auscultation bilaterally, no wheezes, no crackles, no accessory muscle use. HEART: Regular rate and rhythm, S1, S2 without murmur, rub or gallop. ABDOMEN: Soft, nontender, nondistended, normoactive bowel sounds, no guarding, no rebound, no hepatosplenomegaly, no masses. EXTREMITIES: 2+ pulses, warm, well-perfused, no edema. Laboratory Results - last 24 hr 02/01/19 02/01/19 02/01/19 06:30 10:12 18:58 WBC RBC Hgb Hct MCV MCH MCHC RDW Plt Count MPV Absolute Neuts (auto) Neutrophils % Lymphocytes % Monocytes % Eosinophils % Basophils % Nucleated RBC % Sodium 142 Potassium 3.8 Chloride 108 H Carbon Dioxide 29 Anion Gap 5 L BUN 11 Creatinine 0.9 Est GFR (CKD-EPI)AfAm 107.22 Est GFR (CKD-EPI)NonAf 92.51 Random Glucose 101 Calcium 8.6 Phosphorus 2.3 L Magnesium 2.6 H Total Bilirubin 0.6 AST 20 ALT 26 Alkaline Phosphatase 78 Creatine Kinase 166 168 158 Creatine Kinase Index 1.0 1.0 1.2 CK-MB (CK-2) 1.8 1.7 1.9 Troponin I 0.30 H 0.31 H 0.32 H Total Protein 7.5 Albumin 3.9 Triglycerides 128 Cholesterol 199 Total LDL Cholesterol 144 H HDL Cholesterol 36 L Lipase 226 02/02/19 02/02/19 06:23 06:23 WBC 5.7 RBC 4.38 Hgb 13.7 Hct 40.8 MCV 93.1 MCH 31.3 MCHC 33.6 RDW 12.5 Plt Count 162 MPV 9.7 D Absolute Neuts (auto) 3.2 Neutrophils % 56.4 Lymphocytes % 31.5 Monocytes % 8.3 Eosinophils % 2.9 Basophils % 0.9 Nucleated RBC % 0 Sodium 141 Potassium 3.9 Chloride 110 H Carbon Dioxide 24 Anion Gap 6 L BUN 12 Creatinine 0.9 Est GFR (CKD-EPI)AfAm 107.22 Est GFR (CKD-EPI)NonAf 92.51 Random Glucose 89 Calcium 8.7 Phosphorus Magnesium Total Bilirubin 1.4 H AST 20 ALT 25 Alkaline Phosphatase 73 Creatine Kinase 156 Creatine Kinase Index 0.8 CK-MB (CK-2) 1.3 Troponin I Total Protein 6.8 Albumin 3.4 Triglycerides 104 Cholesterol 166 Total LDL Cholesterol 120 H HDL Cholesterol 33 L Lipase 171 Active Medications Generic Name Dose Route Start Last Admin Trade Name Freq PRN Reason Stop Dose Admin Aspirin 81 mg 02/02/19 10:00 02/02/19 11:12 Asa - PO 81 mg DAILY [facility] Administration Atorvastatin Calcium 80 mg 02/02/19 22:00 Lipitor - PO HS ELZA Metoprolol Succinate 25 mg 02/01/19 16:30 02/02/19 11:12 Toprol Xl - PO 25 mg DAILY [facility] Administration Montelukast Sodium 10 mg 02/01/19 22:00 02/01/19 21:00 Singulair - PO 10 mg HS ELZA Administration Morphine Sulfate 4 mg 02/01/19 11:57 Morphine Sulfate IVPUSH Q6H PRN PAIN LEVEL 4 - 6 Ondansetron HCl 4 mg 02/01/19 11:57 Zofran Injection IVPUSH Q6H PRN NAUSEA Pantoprazole Sodium 40 mg 02/01/19 12:15 02/02/19 11:12 Protonix Iv IVPUSH 40 mg DAILY [facility] Administration ASSESSMENT/PLAN: This is a 58 year old man with a history of CAD, NSTEMI, HTN, hyperlipidemia, apical hypertrophic cardiomyopathy who presented to the ED with epigastric pain. 1. Epigastric abdominal pain - Doubt acute pancreatitis - CT suspicious for mild acute pancreatitis - US shows normal pancreas, normal gallbladder, no gallstones - Lipase normal x2 - Will need eventual repeat CT to re-evaluate inflammatory changes involving pancreatic head - Possible gastritis - Continue Protonix - Possible cardiac - Troponin 0.30 -> 0.31 -> 0.32 - Continue aspirin, Toprol XL, Lipitor - Echocardiogram ordered 2. Elevated troponin, non-obstructive CAD, history of NSTEMI - Patient denies CP - Had non-obstructive disease by cath 06/2018 - Continue aspirin, Toprol XL, Lipitor - Echocardiogram ordered 3. Apical hypertrophic cardiomyopathy 4. HTN - Continue Toprol XL 5. Hyperlipidemia - Continue Lipitor with close monitoring of LFTs as Lipitor had been previously discontinued secondary to mild LFT abnormalities Visit type - Emergency Visit Emergency Visit: Yes ED Registration Date: 02/01/19 Care time: The patient presented to the Emergency Department on the above date and was hospitalized for further evaluation of their emergent condition. - New Patient This patient is new to me today: Yes Date on this admission: 02/02/19 - Critical Care Critical Care patient: No - Discharge Referral Referred to [facility] Med P.C.: No
[2019-02-02] MEDS: MONTELUKAST NA 10 MG TABLET PO SCH (21:44)
[2019-02-02] MEDS: ATORVASTATIN CA 80 MG TABLET (FP) PO SCH (21:44)
[2019-02-02] MEDS: morphine SULFATE 4 MG/ML VIAL IVPUSH PRN (23:36)
[2019-02-03 07:35] LABS: ALBUMIN 3.5 g/dl (3.4-5.0); BILIRUBIN,DIRECT 0.3 mg/dL (0.0-0.2); CALCIUM 8.9 mg/dL (8.5-10.1); POTASSIUM 4.4 mmol/L (3.5-5.1)
[2019-02-03] MEDS ORDERED: PANTOPRAZOLE 40 MG TABLET (FP) PO SCH (10:00)
[2019-02-03] MEDS: metoPROLOL SUCCINATE 25 MG TAB.SR.24H (FP) PO SCH (10:12)
[2019-02-03] MEDS: ASPIRIN 81 MG CHEWABLE TABLETS PO SCH (10:12)
--- NOTE | 2019-02-03 11:51 | PN ---
Progress Note, Physician Chief Complaint: epigastric pain History of Present Illness: patient seen and examined, had abdominal pain last night - Current Medication List Current Medications: Active Medications Aspirin (Asa -) 81 mg PO DAILY [facility] Last Admin: 02/03/19 10:12 Dose: 81 mg Atorvastatin Calcium (Lipitor -) 80 mg PO HS [facility] Last Admin: 02/02/19 21:44 Dose: 80 mg Metoprolol Succinate (Toprol Xl -) 25 mg PO DAILY [facility] Last Admin: 02/03/19 10:12 Dose: 25 mg Montelukast Sodium (Singulair -) 10 mg PO HS [facility] Last Admin: 02/02/19 21:44 Dose: 10 mg Morphine Sulfate (Morphine Sulfate) 4 mg IVPUSH Q6H PRN PRN Reason: PAIN LEVEL 4 - 6 Last Admin: 02/02/19 23:36 Dose: 4 mg Ondansetron HCl (Zofran Injection) 4 mg IVPUSH Q6H PRN PRN Reason: NAUSEA Pantoprazole Sodium (Protonix -) 40 mg PO DAILY [facility] Last Admin: 02/03/19 10:12 Dose: 40 mg - Objective Vital Signs: Vital Signs Temperature 98.3 F 02/03/19 06:00 Pulse Rate 58 L 02/03/19 06:00 Respiratory Rate 20 02/03/19 06:00 Blood Pressure 118/63 02/03/19 06:00 O2 Sat by Pulse Oximetry (%) 97 02/02/19 22:00 Constitutional: Yes: Well Nourished, No Distress, Calm Cardiovascular: Yes: WNL, Regular Rate and Rhythm Respiratory: Yes: WNL, Regular, CTA Bilaterally. No: Accessory Muscle Use Gastrointestinal: Yes: WNL, Normal Bowel Sounds, Soft. No: Distention, Tenderness, Tenderness, Epigastrium, Tenderness, Rebound, Vomiting Musculoskeletal: Yes: WNL Extremities: Yes: WNL Edema: No Labs: CBC, BMP 02/02/19 06:23 02/03/19 05:30 - ....Imaging Ultrasound: Report Reviewed Problem List - Problems (1) Apical variant hypertrophic cardiomyopathy Code(s): I42.2 - OTHER HYPERTROPHIC CARDIOMYOPATHY (2) Hypercholesteremia Code(s): E78.00 - PURE HYPERCHOLESTEROLEMIA, UNSPECIFIED (3) NSTEMI (non-ST elevated myocardial infarction) Code(s): I21.4 - NON-ST ELEVATION (NSTEMI) MYOCARDIAL INFARCTION (4) Pancreatitis Code(s): K85.90 - ACUTE PANCREATITIS WITHOUT NECROSIS OR INFECTION, UNSP Qualifiers: Chronicity: acute Assessment/Plan Assessment: Epigastric abdominal pain NSTEMI Non-obstructive CAD HTN HLD Apical Hypertrophic CMP Plan: -cardiac vs GI etiology -mild acute pancreatitis seen on CT, lipase normal -abs us no gallstones, TG normal, not on any offending agents -repeat CT to re-evaluate inflammatory changes involving pancreatic head once acute illness resolved -PPI -patient tolerating diet -troponins flat -2decho pending -c/w cardiac medical mngmt-asa/bb/highint statin -BP control -LDL>130s, restarted on high int statin, monitor LFTS, questionable hx of transaminitis on statin -GI and cardio following
--- NOTE | 2019-02-03 12:37 | ECHO ---
Name: BUDDY GUZMAN Exam:Adult Echocardiogram Study Date: 02/03/2019 11:21 AM Age: 58 yrs Reason For Study: Atypical Chest Pain Height: 68 in Weight: 165 lb BSA: 1.9 m2 MMode/2D Measurements & Calculations IVSd: 1.1 cm ACS: 1.7 cm LVIDd: 3.5 cm LVIDs: 2.5 cm LVPWd: 1.7 cm EDV(Teich): 50.3 ml LVOT diam: 1.8 cm ESV(Teich): 23.2 ml RV S Camilo: 14.2 cm/sec Doppler Measurements & Calculations MV E max camilo: 91.8 cm/sec Ao V2 max: 195.5 cm/sec MV A max camilo: 54.0 cm/sec Ao max P.3 mmHg MV E/A: 1.7 Ao V2 mean: 128.0 cm/sec Ao mean P.5 mmHg Ao V2 VTI: 37.0 cm JAZZY(I,D): 1.5 cm2 JAZZY(V,D): 1.7 cm2 LV V1 max P.9 mmHg MR max camilo: 390.5 cm/sec LV V1 mean P.2 mmHg MR max P.0 mmHg LV V1 max: 121.9 cm/sec LV V1 mean: 83.1 cm/sec LV V1 VTI: 20.5 cm SV(LVOT): 54.3 ml Med Peak E' Camilo: 4.7 cm/sec Med E/e': 19.6 Lat Peak E' Camilo: 6.8 cm/sec Lat E/e': 13.5 Procedure The study was technically adequate with some images being suboptimal in quality. Left Ventricle The left ventricular size, thickness and function are normal. Ejection Fraction = 60-65%. The transmi tral spectral Doppler flow pattern is normal for age. Right Ventricle The right ventricle is normal in size and function. Atria Normal left and right atrial size and function. Mitral Valve The mitral valve is grossly normal. There is trace mitral regurgitation. Tricuspid Valve The tricuspid valve is not well visualized, but is grossly normal. There is trace tricuspid regurgita tion. There was insufficient TR detected to calculate RV systolic pressure. Aortic Valve The aortic valve opens well. Trace aortic regurgitation. Pericardium/Pleura There is no pericardial effusion. Interpretation Summary There is no comparison study available. The left ventricular size, thickness and function are normal The right ventricle is normal in size and function. Trace aortic regurgitation. There is trace tricuspid regurgitation. Ejection Fraction = 60-65%. There is trace mitral regurgitation. Harmeet Barney MD 02/03/2019 12:37 PM
--- NOTE | 2019-02-03 13:50 | PN ---
Progress Note (short form) - Note Progress Note: Patient seen and examined Labs reviewed Further history - patient was being treated for low back pain at [place] in December. Was taking a pain reliever that started with an "E". Epigastric pain began on Sunday, worsening until Sunday No n/v No blood in stool or black stool Vital Signs Temp 97.8 F 02/03/19 10:00 Pulse 69 02/03/19 10:00 Resp 18 02/03/19 10:00 BP 107/64 02/03/19 10:00 Pulse Ox 95 02/03/19 09:00 NAD Epigastric ttp without guarding CBC, BMP 02/02/19 06:23 02/03/19 05:30 US without gallstones or biliary ductal dilatation Impression: Epigastric pain - atypical for pancreatitis, and patient does not drink heavy ETOH, no gallstones, no hypertriglyceridemia. No elevation of lipase on admission. Does not meet criteria for acute pancreatitis. Given history of pain medication, ? ulcer disease, perhaps DU, and pancreatic edema/ inflammation is adjacent? - would perform EGD tomorrow to further assess. NPO after midnight.
[2019-02-03] MEDS: morphine SULFATE 4 MG/ML VIAL IVPUSH PRN (18:51)
[2019-02-03] MEDS ORDERED: morphine SULFATE 4 MG/ML VIAL IVPUSH ONE (21:39)
[2019-02-03] MEDS ORDERED: DEXTROSE 5%-LACTATED RINGERS 1,000 ML IV SCH (21:45)
[2019-02-03] MEDS ORDERED: PANTOPRAZOLE SODIUM 40 MG VIAL IVPUSH SCH (22:00)
--- NOTE | 2019-02-03 22:31 | HOSP ---
Subjective - Review of Symptoms Events since last encounter: AT 8:19pm:paged by assigned RN for abd pain not relieved by morphine 4mg given at 6:50pm Upon examination, pt noted be uncomfortable due to 10/10 sharp diffuse abd pain , associated symptoms include nausea and vomiting. abd: distended, + tense with guarding, hypoactive bowel sounds skin is moist and warm lungs clear b/l he is alert and oriented to situation Pt given morphine 4mg once dose STAT CT abd and pelvis w/ IV contrast, pt also need CTA to evaluate for mesenteric ischemia however, both studies cannot be done tonight Pt started on D5 LR @ 100ml/hr STAT labs sent and repeat EKG done. 11: 40pm Radiologist called to report: acute portal vein thrombosis extending into the proximal splenic vein and SMV. Transmural edema involving loops of small bowel in the right abdomen concerning for ischemia, inflammatory or infectious enteritis. No evidence of bowl obstruction or abscess. Small pelvic and abdominal ascites. Small hiatal hernia. Tiny hepatic lesions. Case reviewed with Dr. Hernandez who will evaluate patient and make recommendations. Pt started on heparin drip for venous thrombosis of abd vessels Heme consult placed PT transferred to ICU for more intensive management. Would consider transfer to higher level of care facility if more invasive interventions required. Would also consider CTA to evaluate for mesenteric ischemia. Results discussed with the patient and he is in agreement with current plan of care. Pt has elected Josette Reed (cousin) as his health care proxy [phone]. Physical Examination Vital Signs: Vital Signs Temperature 98.2 F 02/03/19 19:55 Pulse Rate 60 02/03/19 19:55 Respiratory Rate 18 02/03/19 19:55 Blood Pressure 145/88 02/03/19 19:55 O2 Sat by Pulse Oximetry (%) 97 02/03/19 20:00 Labs: CBC, BMP 02/02/19 06:23 02/03/19 05:30
[2019-02-03] MEDS ORDERED: HEPARIN NA (PORCINE) 5,000 UNITS/ML 1ML VIAL IVPUSH PRN ×2 (23:39)
[2019-02-03 23:40] LABS: HEMATOCRIT 44.3 % (35.4-49); HEMOGLOBIN 14.8 GM/dL (11.7-16.9); MCHC 33.5 g/dl (32.0-35.9); MEAN CELL VOLUME 92.6 fl (80-96); MEAN PLT VOLUME 9.5 fl (7.5-11.1); PLATELET COUNT 164 K/MM3 (134-434); RBC 4.79 M/mm3 (4.00-5.60); RDW 12.5 % (11.9-15.9); WHITE BLOOD COUNT 12.5 K/mm3 (4.0-10.0)
[2019-02-03] MEDS ORDERED: HEPARIN SOD,PORK IN 0.45% NACL 25,000 UNITS/500 ML INFUS.BAG IVPB SCH (23:45)
[2019-02-03] MEDS: ATORVASTATIN CA 80 MG TABLET (FP) PO SCH (23:51)
[2019-02-03] MEDS: MONTELUKAST NA 10 MG TABLET PO SCH (23:52)
[2019-02-03 23:55] LABS: INR 1.67 (0.83-1.09); PROTHROMBIN TIME (PATIENT) 19.8 SEC (9.7-13.0)
[2019-02-04 00:04] LABS: ACTIVATED PTT 29.1 SECONDS (25.2-36.5)
[2019-02-04 00:10] LABS: ALBUMIN 3.7 g/dl (3.4-5.0); BILIRUBIN,TOTAL 0.8 mg/dL (0.2-1); CALCIUM 8.9 mg/dL (8.5-10.1); CREATININE 0.8 mg/dL (0.55-1.3); POTASSIUM 3.7 mmol/L (3.5-5.1); TOT PROT 7.6 g/dl (6.4-8.2)
--- NOTE | 2019-02-04 00:11 | CONSULT ---
Consultation: REQUESTING PROVIDER: Crystal FLORES CONSULT REQUEST: We have been asked to medically evaluate this patient for ( floor team ). HISTORY OF PRESENT ILLNESS: 58yrs old man known case of HTN, Dyslipedemia, non obstructive CAD s/p NSTEMI , Cath on 07/15/2019 at [facility] that showed CAD 50% prox LCx, luminal irregularities, elevated LVEDP 23 mmHg, LV gram c/w spade-like apical hypertrophic cardiomyopathy, patient was discharged on B Blockers, statin and ASA, last month his PMD advised to stop as lab shows mild elevation of Liver enzymes , he present this visit with c/o epigastric keith since last Sunday initially it was intermittent but last night worsened to 07/03 , no radiation, associated with mild nausea, no vomiting or diarrhea, denies any fever was treated on the floor for mild pancreatitits ,pt had sever abdominal pain last night after meal followed by nausea and vomitting , th pain did not releif with pain meds . denies any D/C, denies any chest apin , sob , or palpitations. the pain is rubén umbilical 07/03 local non radiating , worsening with food , no melena no hematochesia repat CT scan A/P with IV contrast showed Portal vein thrombosis , with extension to SMV, proximal splenic vein with small bowel edema concerning for ischemia vs infectious etiology pt is admitted to ICU , started on heparin drip PMH: HTN , HLD, CAD no previous surgeries Denies smoking or drugs, drink socially NKDA REVIEW OF SYSTEMS: CONSTITUTIONAL: Absent: fever, chills, diaphoresis, generalized weakness, malaise, loss of appetite, weight change HEENT: Absent: rhinorrhea, nasal congestion, throat pain, throat swelling, difficulty swallowing, mouth swelling, ear pain, eye pain, visual changes CARDIOVASCULAR: Absent: chest pain, syncope, palpitations, irregular heart rate, lightheadedness , peripheral edema RESPIRATORY: Absent: cough, shortness of breath, dyspnea with exertion, orthopnea, wheezing, stridor, hemoptysis GASTROINTESTINAL: Absent: abdominal pain, abdominal distension, nausea, vomiting, diarrhea, constipation, melena, hematochezia GENITOURINARY: Absent: dysuria, frequency, urgency, hesitancy, hematuria, flank pain, genital pain MUSCULOSKELETAL: Absent: myalgia, arthralgia, joint swelling, back pain, neck pain SKIN: Absent: rash, itching, pallor HEMATOLOGIC/IMMUNOLOGIC: Absent: easy bleeding, easy bruising, lymphadenopathy, frequent infections ENDOCRINE: Absent: unexplained weight gain, unexplained weight loss, heat intolerance, cold intolerance NEUROLOGIC: Absent: headache, focal weakness or paresthesias, dizziness, unsteady gait, seizure, mental status changes, bladder or bowel incontinence PSYCHIATRIC: Absent: anxiety, depression, suicidal or homicidal ideation, hallucinations. PHYSICAL EXAMINATION Vital Signs - 24 hr 02/03/19 02/03/19 02/03/19 02:00 06:00 09:00 Temperature 97.8 F 98.3 F Pulse Rate 62 58 L Respiratory 20 20 18 Rate Blood Pressure 111/66 118/63 O2 Sat by Pulse 95 Oximetry (%) 02/03/19 02/03/19 02/03/19 10:00 14:00 19:55 Temperature 97.8 F 97.9 F 98.2 F Pulse Rate 69 58 L 60 Respiratory 18 18 18 Rate Blood Pressure 107/64 116/73 145/88 O2 Sat by Pulse Oximetry (%) 02/03/19 20:00 Temperature Pulse Rate Respiratory Rate Blood Pressure O2 Sat by Pulse 97 Oximetry (%) GENERAL: Awake, alert, and fully oriented, in mild to moderate distress. HEAD: Normal with no signs of trauma. EYES: Pupils equal, round and reactive to light, extraocular movements intact, sclera anicteric, conjunctiva clear. EARS, NOSE, THROAT: Ears normal, nares patent, oropharynx clear without exudates. Moist mucous membranes. NECK: supple LUNGS: Breath sounds equal, clear to auscultation bilaterally. No wheezes, and no crackles. No accessory muscle use. HEART: Regular rate and rhythm, normal S1 and S2 , soft murmur LUSB ,no rub or gallop. ABDOMEN: firm , periumbilical tenderness, not distended, normoactive bowel sounds, LOWER EXTREMITIES: 2+ pulses, warm, well-perfused. No calf tenderness. No peripheral edema. NEUROLOGICAL: no focal deficit . Normal speech. PSYCHIATRIC: Cooperative. Good eye contact. SKIN: Warm, dry, normal turgor, Laboratory Results - last 24 hr 02/03/19 02/03/19 02/03/19 05:30 23:20 23:20 WBC 12.5 H RBC 4.79 Hgb 14.8 Hct 44.3 MCV 92.6 MCH 31.0 MCHC 33.5 RDW 12.5 Plt Count 164 MPV 9.5 PT with INR INR PTT (Actin FS) Sodium 138 136 Potassium 4.4 3.7 Chloride 107 106 Carbon Dioxide 26 21 Anion Gap 6 L 9 BUN 18 16 Creatinine 1.0 0.8 Est GFR (CKD-EPI)AfAm 94.39 112.53 Est GFR (CKD-EPI)NonAf 81.44 97.10 Random Glucose 79 123 H Calcium 8.9 8.9 Total Bilirubin 1.0 0.8 Direct Bilirubin 0.3 H AST 25 26 ALT 25 27 Alkaline Phosphatase 74 82 Creatine Kinase 273 Creatine Kinase Index 0.5 CK-MB (CK-2) 1.6 1.7 Troponin I 0.32 H Total Protein 7.0 7.6 Albumin 3.5 3.7 02/03/19 23:20 WBC RBC Hgb Hct MCV MCH MCHC RDW Plt Count MPV PT with INR 19.80 H INR 1.67 H PTT (Actin FS) 29.1 Sodium Potassium Chloride Carbon Dioxide Anion Gap BUN Creatinine Est GFR (CKD-EPI)AfAm Est GFR (CKD-EPI)NonAf Random Glucose Calcium Total Bilirubin Direct Bilirubin AST ALT Alkaline Phosphatase Creatine Kinase Creatine Kinase Index CK-MB (CK-2) Troponin I Total Protein Albumin Active Medications Generic Name Dose Route Start Last Admin Trade Name Freq PRN Reason Stop Dose Admin Aspirin 81 mg 02/02/19 10:00 02/03/19 10:12 Asa - PO 81 mg DAILY ELZA Administration Atorvastatin Calcium 80 mg 02/02/19 22:00 02/03/19 23:51 Lipitor - PO Not Given HS ELZA Chlorhexidine Gluconate 1 applic 02/04/19 22:00 Hibiclens For Decolonization - TP HS ELZA Fentanyl 25 mcg 02/04/19 00:15 Sublimaze Injection - IVPUSH 02/04/19 00:16 ONCE ONE Heparin Sodium (Porcine) 1,000 unit 02/03/19 23:39 Heparin - IVPUSH PRN PRN Heparin Heparin Sodium (Porcine) 5,000 unit 02/03/19 23:39 Heparin - IVPUSH PRN PRN Heparin Dextrose/Lactated Ringer's 1,000 mls @ 100 mls/hr 02/03/19 21:45 02/03/19 23: 51 D5-Lr - IV 100 mls/hr ASDIR ELZA Administration HEPARIN SOD,PORK IN 0.45% NACL 25,000 units in 500 mls @ 20 mls/hr 02/03/19 23 :45 Heparin-1/2ns 25,000 Units/500 IVPB TITR ELZA Protocol 1,000 UNITS/HR Metoprolol Succinate 25 mg 02/01/19 16:30 02/03/19 10:12 Toprol Xl - PO 25 mg DAILY ELZA Administration Montelukast Sodium 10 mg 02/01/19 22:00 02/03/19 23:52 Singulair - PO Not Given HS ELZA Morphine Sulfate 4 mg 02/01/19 11:57 02/03/19 18:51 Morphine Sulfate IVPUSH 4 mg Q6H PRN Administration PAIN LEVEL 4 - 6 Mupirocin 1 applic 02/04/19 10:00 Bactroban Ointment (For Decolonization) - NS 02/09/19 09:59 BID ELZA Ondansetron HCl 4 mg 02/01/19 11:57 02/03/19 21:44 Zofran Injection IVPUSH 4 mg Q6H PRN Administration NAUSEA Pantoprazole Sodium 40 mg 02/03/19 22:00 Protonix Iv IVPUSH BID ELZA CBC, BMP 02/03/19 23:20 02/03/19 23:20 ASSESSMENT/PLAN: # Acute abdominal pain # Portal vein thrombosis extended to SMV and Splenic vein # Small bowel edema due to ischedmia vs infectious etiology * monitor in ICU * start heparin drip * Monitor PT, PTT , coagulation studies , factor V lyding, protein S, C function , Lupus anticoagulation , * cont IV fluids * Pain control IV dilauded * NPO * Surgery consult * GI consult * Heme consult * R.O underline malignancy * monitor LFTS * # Apical hypertrophic cardiomyopathy # HTN * Continue Toprol XL #Hyperlipidemia - Continue Lipitor with close monitoring of LFTs as Lipitor had been previously discontinued secondary to mild LFT abnormalities Dispo: We will continue to follow the patient. Thank you for this consultative opportunity. Visit type - Emergency Visit Emergency Visit: Yes ED Registration Date: 02/03/19 Care time: The patient presented to the Emergency Department on the above date and was hospitalized for further evaluation of their emergent condition. - New Patient This patient is new to me today: Yes Date on this admission: 02/04/19 - Critical Care Critical Care patient: Yes Total Critical Care Time (in minutes): 45 Critical Care Statement: The care of this patient involved high complexity decision making to prevent further life threatening deterioration of the patient 's condition and/or to evaluate & treat vital organ system(s) failure or risk of failure.
[2019-02-04 00:33] LABS: ERYTHROCYTE SEDIMENTATION RATE 20 mm/hr (0-20)
[2019-02-04] MEDS ORDERED: DEXTROSE 5%-LACTATED RINGERS 1,000 ML IV SCH (00:50)
[2019-02-04] MEDS ORDERED: ONDANSETRON 4 MG/2 ML VIAL IVPUSH PRN (00:50)
[2019-02-04] MEDS ORDERED: HEPARIN SOD,PORK IN 0.45% NACL 25,000 UNITS/500 ML INFUS.BAG IVPB SCH (00:50)
[2019-02-04] MEDS ORDERED: morphine SULFATE 4 MG/ML VIAL IVPUSH PRN (00:50)
[2019-02-04] MEDS ORDERED: HEPARIN NA (PORCINE) 5,000 UNITS/ML 1ML VIAL IVPUSH PRN ×8 (00:50→15:13)
[2019-02-04] MEDS: HYDROmorphone HCl 2 MG/ML VIAL IVPB PRN ×5 (01:21→21:04)
--- NOTE | 2019-02-04 06:29 | CONSULT ---
Consult Consult Specialty:: general surgery Reason for Consultation:: portal vein thrombosis - History of Present Illness Chief Complaint: epigastric abdominal pain History of Present Illness: 58 yo male PMH HTN, Dyslipedemia, non obstructive CAD s/p NSTEMI , Cath on at [facility] that showed CAD 50% prox LCx, luminal irregularities, elevated LVEDP 23 mmHg, LV gram c/w spade-like apical hypertrophic cardiomyopathy, patient was discharged on B Blockers, statin and ASA, last month his PMD advised to stop as lab shows mild elevation of Liver enzymes. He presented complaining of epigastric pain since last Sunday initially it was intermittent but progressed to 07/03 , no radiation, associated with mild nausea, no vomiting or diarrhea, denies any fever last BM was yesterday, lab shows normal, CBC, CMP anfd Lipase mild elevation of Trop I , CT abd shows early pancreatitis, Cardiology and GI consulted patient is getting admitted for observation and further management. No history of hypercoagulable state. We were also called to assess. - History Source History Provided By: Patient, Medical Record - Past Medical History Cardio/Vascular: Yes: CAD, HTN, Hyperlipdemia, AL - Past Surgical History Past Surgical History: Yes: None - Alcohol/Substance Use Hx Alcohol Use: Yes (Social last was few days ago) - Smoking History Smoking history: Never smoked Have you smoked in the past 12 months: No - Social History Place of : Other History of Recent Travel: No Home Medications - Allergies Allergies/Adverse Reactions: Allergies Allergy/AdvReac Type Severity Reaction Status Date / Time latex Allergy Verified 02/01/19 05:07 adhesive tape AdvReac Verified 02/01/19 05:29 - Home Medications Home Medications: Ambulatory Orders RX: Montelukast Sodium [Singulair] 10 mg PO HS 07/14/18 Aspirin [ASA -] 81 mg PO DAILY 02/01/19 RX: Metoprolol Tartrate [Lopressor -] 25 mg PO DAILY 02/01/19 Family Disease History - Family Disease History Family Disease History: Heart Disease: Father ([place] at age 80) Review of Systems - Review of Systems Constitutional: denies: Chills, Fever Eyes: denies: Blind Spots, Recent Change in Vision HENT: denies: Difficult Swallowing, Throat Pain Neck: denies: Decreased ROM, Tenderness Cardiovascular: reports: Chest Pain (history june 2018). denies: Palpitations Respiratory: denies: Cough, SOB Gastrointestinal: reports: Abdominal Pain. denies: Constipation, Diarrhea Genitourinary: denies: Discharge, Dysuria, Flank Pain (no pain in traube), Menses Breasts: reports: No Symptoms Reported. denies: Pain Musculoskeletal: denies: Back Pain, Joint Swelling Integumentary: denies: Blister, Bruising, Lump Neurological: denies: Seizure, Syncope Endocrine: denies: Increased Thirst, Unexplained Weight Gain, Unexplained Weight Loss Hematology/Lymphatic: denies: Easily Bruised, Excessive Bleeding Psychiatric: denies: Anxiety, Depression Physical Exam Vital Signs: Vital Signs Temperature 98.8 F 02/04/19 06:00 Pulse Rate 84 02/04/19 06:00 Respiratory Rate 02/04/19 06:00 Blood Pressure 156/101 H 02/04/19 06:00 O2 Sat by Pulse Oximetry (%) 92 L 02/04/19 01:30 Constitutional: Yes: Well Nourished, No Distress, Calm Eyes: Yes: Conjunctiva Clear, EOM Intact HENT: Yes: Atraumatic, Normocephalic Neck: Yes: Supple, Trachea Midline Cardiovascular: Yes: Regular Rate and Rhythm, S1, S2 Respiratory: Yes: Regular, CTA Bilaterally Gastrointestinal: Yes: Normal Bowel Sounds, Soft, Tenderness, Epigastrium ( voluntary guarding in epigastrium). No: Tenderness, Tenderness, Rebound ...Rectal Exam: Yes: Deferred Renal/: No: CVA Tenderness - Left, CVA Tenderness - Right Breast(s): No: Gynecomastia, Mass Musculoskeletal: No: Joint Swelling, Muscle Pain Extremities: Yes: Other (no varicosities). No: Calf Tenderness, Cool, Cyanosis Edema: No Peripheral Pulses WNL: Yes Integumentary: No: Jaundice, Rash, Skin Tear Neurological: Yes: Alert, Oriented Psychiatric: Yes: Alert, Oriented Labs: CBC, BMP 02/03/19 23:20 02/03/19 23:20 Imaging - Results Chest X-ray: Report Reviewed, Image Reviewed Cat Scan: Report Reviewed, Image Reviewed (portal thrombosis extending to SMV and splenic and assocated edema in adjacent small bowel) Ultrasound: Report Reviewed, Image Reviewed EKG: Report Reviewed, Image Reviewed Problem List - Problems (1) Portal vein thrombosis Assessment/Plan: 58m yo male with acute portal vein thrombosis with SMV and splenic extension for 1 week, There is no clinical indication of peritonitis, thus there is no role for surgical intervention. supportive medical care hypercoagulable work-up, parasite workup (E. histolytica in case reports) low residue diet as tolerated IVF hydration trend labs and LFTs IV Anticoagulation consider transfer to a center with visceral IR please recall as needed Thank you for the opportunity to participate in the care of this patient. Code(s): I81 - PORTAL VEIN THROMBOSIS (2) Generalized abdominal pain Code(s): R10.84 - GENERALIZED ABDOMINAL PAIN (3) Pancreatitis Code(s): K85.90 - ACUTE PANCREATITIS WITHOUT NECROSIS OR INFECTION, UNSP Qualifiers: Chronicity: acute (4) HTN (hypertension) Code(s): I10 - ESSENTIAL (PRIMARY) HYPERTENSION Qualifiers: Hypertension type: essential hypertension Qualified Code(s): I10 - Essential (primary) hypertension (5) Hypercholesterolemia Code(s): E78.00 - PURE HYPERCHOLESTEROLEMIA, UNSPECIFIED (6) NSTEMI (non-ST elevated myocardial infarction) Code(s): I21.4 - NON-ST ELEVATION (NSTEMI) MYOCARDIAL INFARCTION
[2019-02-04 06:50] LABS: BASO % 0.2 % (0-2.0); HEMATOCRIT 45.4 % (35.4-49); HEMOGLOBIN 15.7 GM/dL (11.7-16.9); LYMPH % 8.1 % (8-40); MCH 31.3 pg (25.7-33.7); MCHC 34.4 g/dl (32.0-35.9); MEAN PLT VOLUME 9.7 fl (7.5-11.1); MONO % 7.1 % (3.8-10.2); NEUT % 84.6 % (42.8-82.8); PLATELET COUNT 210 K/MM3 (134-434); RBC 4.99 M/mm3 (4.00-5.60); RDW 12.8 % (11.9-15.9); WHITE BLOOD COUNT 9.9 K/mm3 (4.0-10.0)
[2019-02-04 07:56] LABS: INR 1.13 (0.83-1.09); PROTHROMBIN TIME (PATIENT) 13.3 SEC (9.7-13.0)
[2019-02-04 08:04] LABS: CALCIUM 8.6 mg/dL (8.5-10.1); CREATININE 0.9 mg/dL (0.55-1.3); POTASSIUM 4.2 mmol/L (3.5-5.1)
--- NOTE | 2019-02-04 09:08 | PN.GI ---
GI Progress Note Subjective: No acute events + abdominal pain requiring dilaudid this AM Worsening pain leading to repeat CT scan last night revealed extensive PVT involving SMV and portal vein - Objective Vital Signs: Vital Signs Temperature 98.8 F 02/04/19 06:00 Pulse Rate 88 02/04/19 08:00 Respiratory Rate 16 02/04/19 08:00 Blood Pressure 116/78 02/04/19 08:00 O2 Sat by Pulse Oximetry (%) 92 L 02/04/19 01:30 Constitutional: Calm Eyes: No: Sclera Icterus Cardiovascular: Yes: Regular Rate and Rhythm Respiratory: Yes: CTA Bilaterally Gastrointestinal Inspection: No: Distention ...Auscultate: Yes: Normoactive Bowel Sounds ...Palpate: Yes: Firm/Rigid, Guarding ...Percussion: No: Tympanitic Edema: No (No LE edema) Neurological: Yes: Alert Labs: CBC, BMP 02/04/19 05:30 INR, PTT INR 1.13 (0.83-1.09) H 02/04/19 07:17 Hepatic Panel Total Bilirubin 0.8 mg/dL (0.2-1) 02/03/19 23:20 Direct Bilirubin 0.3 mg/dL (0.0-0.2) H 02/03/19 05:30 AST 26 U/L (15-37) 02/03/19 23:20 ALT 27 U/L (13-61) 02/03/19 23:20 Alkaline Phosphatase 82 U/L (45-117) 02/03/19 23:20 Albumin 3.7 g/dl (3.4-5.0) 02/03/19 23:20 Problem List - Problems (1) Portal vein thrombosis Assessment/Plan: On heparin drip Heme evaluation Monitor abdominal exam Monitor LFTs Deferring EGD at this time Code(s): I81 - PORTAL VEIN THROMBOSIS
[2019-02-04 09:22] LABS: ALBUMIN 3.4 g/dl (3.4-5.0); BILIRUBIN,TOTAL 0.7 mg/dL (0.2-1); CALCIUM 8.3 mg/dL (8.5-10.1); CREATININE 1.2 mg/dL (0.55-1.3); MAGNESIUM 2.2 mg/dL (1.8-2.4); PHOSPHOROUS 4.1 mg/dL (2.5-4.9); POTASSIUM 4.7 mmol/L (3.5-5.1)
--- NOTE | 2019-02-04 09:33 | PN ---
Physical Exam: SUBJECTIVE: Patient seen and examined at the bedside. having some nausea OBJECTIVE: 0n heparin drip Vital Signs Period Temp Pulse Resp BP Sys/Cruz Pulse Ox Last 24 Hr 97.8 F-99.2 F 58-88 14-20 107-174/64-104 92-97 GENERAL: The patient is awake, alert, and fully oriented, in no acute distress. HEAD: Normal with no signs of trauma. EYES: PERRL, extraocular movements intact, sclera anicteric, conjunctiva clear. No ptosis. ENT: Ears normal, nares patent, oropharynx clear without exudates, moist mucous membranes. NECK: Trachea midline, full range of motion, supple. LUNGS: Breath sounds equal, clear to auscultation bilaterally, HEART: Regular rate and rhythm, ABDOMEN: soft, tender, hypoactive bowel sounds. abdominal pain EXTREMITIES: no edema. NEUROLOGICAL: Normal speech, gait not observed. PSYCH: Normal mood, normal affect. SKIN: Warm, dry, normal turgor, no rashes or lesions noted Laboratory Results - last 24 hr 02/03/19 02/03/19 02/03/19 23:20 23:20 23:20 WBC 12.5 H RBC 4.79 Hgb 14.8 Hct 44.3 MCV 92.6 MCH 31.0 MCHC 33.5 RDW 12.5 Plt Count 164 MPV 9.5 Absolute Neuts (auto) Neutrophils % Lymphocytes % Monocytes % Eosinophils % Basophils % Nucleated RBC % ESR 20 PT with INR 19.80 H INR 1.67 H PTT (Actin FS) 29.1 Sodium 136 Potassium 3.7 Chloride 106 Carbon Dioxide 21 Anion Gap 9 BUN 16 Creatinine 0.8 Est GFR (CKD-EPI)AfAm 112.53 Est GFR (CKD-EPI)NonAf 97.10 Random Glucose 123 H Lactic Acid Calcium 8.9 Phosphorus Magnesium Total Bilirubin 0.8 AST 26 ALT 27 Alkaline Phosphatase 82 Creatine Kinase 318 H Creatine Kinase Index 0.5 CK-MB (CK-2) 1.7 Troponin I 0.31 H Total Protein 7.6 Albumin 3.7 02/03/19 02/03/19 02/03/19 23:20 23:20 23:20 WBC RBC Hgb Hct MCV MCH MCHC RDW Plt Count MPV Absolute Neuts (auto) Neutrophils % Lymphocytes % Monocytes % Eosinophils % Basophils % Nucleated RBC % ESR PT with INR INR PTT (Actin FS) Sodium Potassium Chloride Carbon Dioxide Anion Gap BUN Creatinine Est GFR (CKD-EPI)AfAm Est GFR (CKD-EPI)NonAf Random Glucose Lactic Acid 1.4 Calcium Phosphorus Magnesium Total Bilirubin AST ALT Alkaline Phosphatase Creatine Kinase Cancelled Creatine Kinase Index CK-MB (CK-2) 1.7 Troponin I Cancelled Total Protein Albumin 02/04/19 02/04/19 02/04/19 05:30 05:30 07:17 WBC 9.9 RBC 4.99 Hgb 15.7 Hct 45.4 MCV 91.0 MCH 31.3 MCHC 34.4 RDW 12.8 Plt Count 210 D MPV 9.7 Absolute Neuts (auto) 8.4 H Neutrophils % 84.6 H D Lymphocytes % 8.1 D Monocytes % 7.1 Eosinophils % 0.0 D Basophils % 0.2 Nucleated RBC % 0 ESR PT with INR INR PTT (Actin FS) Sodium 139 142 Potassium 4.2 4.7 Chloride 109 H 110 H Carbon Dioxide 21 22 Anion Gap 8 10 BUN 18 18 Creatinine 0.9 1.2 Est GFR (CKD-EPI)AfAm 107.22 75.72 Est GFR (CKD-EPI)NonAf 92.51 65.33 Random Glucose 185 H 182 H Lactic Acid Calcium 8.6 8.3 L Phosphorus 4.1 Magnesium 2.2 Total Bilirubin 0.7 AST 24 ALT 25 Alkaline Phosphatase 74 Creatine Kinase Creatine Kinase Index CK-MB (CK-2) Troponin I Total Protein 7.0 Albumin 3.4 02/04/19 07:17 WBC RBC Hgb Hct MCV MCH MCHC RDW Plt Count MPV Absolute Neuts (auto) Neutrophils % Lymphocytes % Monocytes % Eosinophils % Basophils % Nucleated RBC % ESR PT with INR 13.30 H INR 1.13 H PTT (Actin FS) Sodium Potassium Chloride Carbon Dioxide Anion Gap BUN Creatinine Est GFR (CKD-EPI)AfAm Est GFR (CKD-EPI)NonAf Random Glucose Lactic Acid Calcium Phosphorus Magnesium Total Bilirubin AST ALT Alkaline Phosphatase Creatine Kinase Creatine Kinase Index CK-MB (CK-2) Troponin I Total Protein Albumin Active Medications Generic Name Dose Route Start Last Admin Trade Name Freq PRN Reason Stop Dose Admin Aspirin 81 mg 02/04/19 10:00 Asa - PO DAILY [facility] Atorvastatin Calcium 80 mg 02/04/19 22:00 Lipitor - PO HS [facility] Chlorhexidine Gluconate 1 applic 02/04/19 22:00 Hibiclens For Decolonization - TP HS ELZA Heparin Sodium (Porcine) 1,000 unit 02/04/19 00:50 Heparin - IVPUSH PRN PRN Heparin Heparin Sodium (Porcine) 5,000 unit 02/04/19 00:50 Heparin - IVPUSH PRN PRN Heparin Hydromorphone HCl 2 mg 02/04/19 00:17 02/04/19 06:07 Dilaudid Vial - IVPB 2 mg Q4H PRN Administration PAIN LEVEL 1-5 Dextrose/Lactated Ringer's 1,000 mls @ 100 mls/hr 02/04/19 00:50 02/03/19 23: 50 D5-Lr - IV 100 mls/hr ASDIR ELZA Administration HEPARIN SOD,PORK IN 0.45% NACL 25,000 units in 500 mls @ 20 mls/hr 02/04/19 00 :50 02/04/19 00:30 Heparin-1/2ns 25,000 Units/500 IVPB 1,000 units/hr TITR ELZA 20 mls/hr Administration Protocol 1,000 UNITS/HR Metoprolol Succinate 25 mg 02/04/19 10:00 Toprol Xl - PO DAILY ELZA Montelukast Sodium 10 mg 02/04/19 22:00 Singulair - PO HS ELZA Morphine Sulfate 4 mg 02/04/19 00:50 Morphine Sulfate IVPUSH Q6H PRN PAIN LEVEL 4 - 6 Mupirocin 1 applic 02/04/19 10:00 Bactroban Ointment (For Decolonization) - NS 02/09/19 09:59 BID [facility] Ondansetron HCl 4 mg 02/04/19 00:50 Zofran Injection IVPUSH Q6H PRN NAUSEA Pantoprazole Sodium 40 mg 02/04/19 10:00 Protonix Iv IVPUSH BID [facility] ASSESSMENT/PLAN: Patient is a 58 year old male with a past medical histoy of hypertension, dyslipidemia, non obstructive CAD s/p NSTEMI, s/p cath on 07/15/2019 at [facility]. Patient presents to the ED on 02/03/19 with c/o epigastric pain, non radiating associated with mild nausea, no vomiting or diarrhea. Pain worsened and he had a repeat CT abdomen and pelvis overnight which showed portal vein thrombosis with SMV and splenic extension. 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 Heparin drip initiated overnight. 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 To consider transfer to tertiary medical center if further intervention is planned for portal vein thrombosis Continue Metoprolol 25mg daily, asa and lipitor daily Hematology/oncology evaluation to rule out underlying malignancy. Manage pain Card: Demand ischemia. followed by cardiology. Hypertension: on metoprolol. monitor bp Hypercholesterolemia: started on statin therapy Pulm: No acute issues. tolerating room air On Singulair and albuterol prn GI Portal vein thrombosis extended to SMV and splenic vein LFTs within normal limits. Zofran for nausea/vomiting Dr. Hernandez evaluated. recommend hypercoagulable/parasite workup. Deferring EGD at this time Renal Renal function stable. monitor kidney function. fen on d5, LR @ 100 NPO for now prophy On heparin drip disposition: full code. Visit type - Emergency Visit Emergency Visit: Yes ED Registration Date: 02/03/19 Care time: The patient presented to the Emergency Department on the above date and was hospitalized for further evaluation of their emergent condition. - New Patient This patient is new to me today: Yes Date on this admission: 02/04/19 - Critical Care Critical Care patient: No - Discharge Referral Referred to [facility] No
[2019-02-04] MEDS ORDERED: metoPROLOL SUCCINATE 25 MG TAB.SR.24H (FP) PO SCH (10:00)
[2019-02-04] MEDS ORDERED: ASPIRIN 81 MG CHEWABLE TABLETS PO SCH (10:00)
[2019-02-04] MEDS ORDERED: MUPIROCIN 2% TOPICAL OINTMENT FOR DECOLONIZATION NS SCH (10:00)
[2019-02-04] MEDS ORDERED: PANTOPRAZOLE SODIUM 40 MG VIAL IVPUSH SCH (10:00)
--- NOTE | 2019-02-04 10:53 | PN ---
Progress Note, Physician Chief Complaint: Events noted. Seen by Dr. Urbina 2 days ago. Currently in ICU. Complains of intermittent nausea/vomiting History of Present Illness: Presence of portal vein thrombosis Patient was seen and examined. Awake and alert. Chart was reviewed Denies chest pain, SOB or palpitations - Current Medication List Current Medications: Active Medications Aspirin (Asa -) 81 mg PO DAILY [facility] Atorvastatin Calcium (Lipitor -) 80 mg PO HS [facility] Chlorhexidine Gluconate (Hibiclens For Decolonization -) 1 applic TP HS [facility] Heparin Sodium (Porcine) (Heparin -) 1,000 unit IVPUSH PRN PRN PRN Reason: Heparin Heparin Sodium (Porcine) (Heparin -) 5,000 unit IVPUSH PRN PRN PRN Reason: Heparin Hydromorphone HCl (Dilaudid Vial -) 2 mg IVPB Q4H PRN PRN Reason: PAIN LEVEL 1-5 Last Admin: 02/04/19 06:07 Dose: 2 mg Dextrose/Lactated Ringer's (D5-Lr -) 1,000 mls @ 100 mls/hr IV ASDIR [facility] Last Admin: 02/03/19 23:50 Dose: 100 mls/hr HEPARIN SOD,PORK IN 0.45% NACL (Heparin-1/2ns 25,000 Units/500) 25,000 units in 500 mls @ 20 mls/hr IVPB TITR [facility]; Protocol Last Titration: 02/04/19 09:57 Dose: 700 units/hr, 14 mls/hr Metoprolol Succinate (Toprol Xl -) 25 mg PO DAILY [facility] Montelukast Sodium (Singulair -) 10 mg PO HS [facility] Morphine Sulfate (Morphine Sulfate) 4 mg IVPUSH Q6H PRN PRN Reason: PAIN LEVEL 4 - 6 Mupirocin (Bactroban Ointment (For Decolonization) -) 1 applic NS BID [facility] Stop: 02/09/19 09:59 Last Admin: 02/04/19 09:42 Dose: 1 dose Ondansetron HCl (Zofran Injection) 4 mg IVPUSH Q6H PRN PRN Reason: NAUSEA Last Admin: 02/04/19 09:42 Dose: 4 mg Pantoprazole Sodium (Protonix Iv) 40 mg IVPUSH BID [facility] Last Admin: 02/04/19 09:42 Dose: 40 mg - Objective Vital Signs: Vital Signs Temperature 98 F 02/04/19 10:00 Pulse Rate 80 02/04/19 10:00 Respiratory Rate 16 02/04/19 10:00 Blood Pressure 140/80 02/04/19 10:00 O2 Sat by Pulse Oximetry (%) 92 L 02/04/19 01:30 Eyes: Yes: PERRL HENT: Yes: Atraumatic Neck: Yes: Supple Cardiovascular: Yes: Regular Rate and Rhythm, S1, S2 Respiratory: Yes: Regular, CTA Bilaterally Gastrointestinal: Yes: Normal Bowel Sounds, Tenderness Edema: No Additional Findings/Remarks: - Review of Systems Constitutional: denies: Chills, Fever Cardiovascular: denies: Chest Pain. denies: Palpitations, Shortness of Breath Respiratory: denies: Cough, Hemoptysis, Orthopnea, PND, SOB, SOB on Exertion Gastrointestinal: denies: Diarrhea, (+) Nausea. (+) Abdominal Pain, (-) Constipation, Melena, Rectal Bleeding, (+) Vomiting Genitourinary: denies: Dysuria, Hematuria Musculoskeletal: denies: Back Pain, Joint Pain Neurological: denies: Dizziness, Headache, Seizure, Syncope Labs: CBC, BMP 02/04/19 05:30 02/04/19 07:17 INR, PTT INR 1.13 (0.83-1.09) H 02/04/19 07:17 Problem List - Problems (1) Elevated troponin I level Code(s): R74.8 - ABNORMAL LEVELS OF OTHER SERUM ENZYMES (2) Generalized abdominal pain Code(s): R10.84 - GENERALIZED ABDOMINAL PAIN (3) Hypercholesteremia Code(s): E78.00 - PURE HYPERCHOLESTEROLEMIA, UNSPECIFIED (4) NSTEMI (non-ST elevated myocardial infarction) Code(s): I21.4 - NON-ST ELEVATION (NSTEMI) MYOCARDIAL INFARCTION (5) Pancreatitis Code(s): K85.90 - ACUTE PANCREATITIS WITHOUT NECROSIS OR INFECTION, UNSP Qualifiers: Chronicity: acute (6) Portal vein thrombosis Code(s): I81 - PORTAL VEIN THROMBOSIS (7) HTN (hypertension) Code(s): I10 - ESSENTIAL (PRIMARY) HYPERTENSION Qualifiers: Hypertension type: essential hypertension Qualified Code(s): I10 - Essential (primary) hypertension Assessment/Plan 1. Portal vein thrombosis with SMV and splenic extension 2. CAD non-obstructive, angina, demand ischemia 3. HTN 4. Hypercholesterolemia PLAN: 1. Heparin protocol and probable senior living anticoagulation to be decided. To consider hypercoagulable work up. Hematology evaluation 2. GI and Surgery input noted. To consider transfer to tertiary [facility] if further intervention is planned for portal vein thrombosis 3. Continue Metoprolol as tolerated 4. Statin as long as LFT remain normal 5. Echocardiography result noted 6. Zofran PRN Further plans are to follow Maycol Bridges MD
--- NOTE | 2019-02-04 12:08 | EKG ---
Test Reason : Blood Pressure : / mmHG Vent. Rate : 065 BPM Atrial Rate : 065 BPM P-R Int : 158 ms QRS Dur : 080 ms QT Int : 444 ms P-R-T Axes : 067 024 162 degrees QTc Int : 461 ms NORMAL SINUS RHYTHM LEFT VENTRICULAR HYPERTROPHY WITH REPOLARIZATION ABNORMALITY ABNORMAL ECG WHEN COMPARED WITH ECG OF 02-FEB-2019 09:48, NO SIGNIFICANT CHANGE WAS FOUND Confirmed by MD Flaco, Angel ([id number]) on 02/04/2019 12:08:12 PM Referred By: Confirmed By:Angel Sam MD
--- NOTE | 2019-02-04 12:12 | PN ---
Teaching Attending Note Name of Resident: Chelsi Navarro ATTENDING PHYSICIAN STATEMENT I saw and evaluated the patient. I reviewed the resident's note and discussed the case with the resident. I agree with the resident's findings and plan as documented. SUBJECTIVE: Pt seen and examined in the ICU. Still with abdominal pain and intermittent nausea. No fevers or chills. OBJECTIVE: Vital Signs Period Temp Pulse Resp BP Sys/Cruz Pulse Ox Last 24 Hr 97.9 F-99.2 F 58-88 14-20 116-174/73-104 92-97 Intake & Output 02/01/19 02/02/19 02/03/19 02/04/19 23:59 23:59 23:59 23:59 Intake Total 310 741 850 70 Balance 310 741 850 70 Weight 74.843 kg Gen: pain with movement Heart: RRR Lung: decreased breath sounds at the bases Abd: epigastric tenderness, guarding Ext: no edema CBC, BMP 02/04/19 05:30 02/04/19 07:17 Active Medications Aspirin (Asa -) 81 mg PO DAILY [facility] Atorvastatin Calcium (Lipitor -) 80 mg PO HS [facility] Chlorhexidine Gluconate (Hibiclens For Decolonization -) 1 applic TP HS [facility] Heparin Sodium (Porcine) (Heparin -) 1,000 unit IVPUSH PRN PRN PRN Reason: Heparin Heparin Sodium (Porcine) (Heparin -) 5,000 unit IVPUSH PRN PRN PRN Reason: Heparin Hydromorphone HCl (Dilaudid Vial -) 2 mg IVPB Q4H PRN PRN Reason: PAIN LEVEL 1-5 Last Admin: 02/04/19 06:07 Dose: 2 mg Dextrose/Lactated Ringer's (D5-Lr -) 1,000 mls @ 100 mls/hr IV ASDIR [facility] Last Admin: 02/03/19 23:50 Dose: 100 mls/hr HEPARIN SOD,PORK IN 0.45% NACL (Heparin-1/2ns 25,000 Units/500) 25,000 units in 500 mls @ 20 mls/hr IVPB TITR [facility]; Protocol Last Titration: 02/04/19 09:57 Dose: 700 units/hr, 14 mls/hr Metoprolol Succinate (Toprol Xl -) 25 mg PO DAILY [facility] Montelukast Sodium (Singulair -) 10 mg PO HS [facility] Morphine Sulfate (Morphine Sulfate) 4 mg IVPUSH Q6H PRN PRN Reason: PAIN LEVEL 4 - 6 Mupirocin (Bactroban Ointment (For Decolonization) -) 1 applic NS BID [facility] Stop: 02/09/19 09:59 Last Admin: 02/04/19 09:42 Dose: 1 dose Ondansetron HCl (Zofran Injection) 4 mg IVPUSH Q6H PRN PRN Reason: NAUSEA Last Admin: 02/04/19 09:42 Dose: 4 mg Pantoprazole Sodium (Protonix Iv) 40 mg IVPUSH BID [facility] Last Admin: 02/04/19 09:42 Dose: 40 mg ASSESSMENT AND PLAN: Portal Vein/SMV/Splenic Vein Thrombosis CAD +Troponins likely Demand Ischemia HTN Hypercholesterolemia - continue anticoagulation to therapeutic range - hematology evaluation - pain control - incentive spirometry - antiemetics - can monitor on floor
[2019-02-04] MEDS ORDERED: HYDROmorphone HCl 2 MG/ML VIAL IVPB PRN (15:13)
[2019-02-04] MEDS: ALBUTEROL SO4 0.083% IH SOL 2.5 MG/3 ML VIAL.NEB. NEB PRN (15:25)
--- NOTE | 2019-02-04 15:54 | PN ---
Physical Exam: SUBJECTIVE: Patient seen and examined at bedside this morning. Patient still reports diffuse abdominal pain this morning, worse on the epigastric area, relieved by pain medications. Patient also has nausea, with no vomiting. Denies fever, chills, headache, chest pain, SOB, diarrhea, urinary symptoms. OBJECTIVE: Vital Signs Temperature 97.7 F 02/04/19 12:00 Pulse Rate 88 02/04/19 14:00 Respiratory Rate 16 02/04/19 14:00 Blood Pressure 125/96 02/04/19 14:00 O2 Sat by Pulse Oximetry (%) 92 L 02/04/19 01:30 GENERAL: The patient is awake, alert, and fully oriented, in no acute distress. HEAD: Normal with no signs of trauma. EYES: PERRLA, EOMI, sclera anicteric, conjunctiva clear. ENT: oropharynx clear without exudates, moist mucous membranes. NECK: Trachea midline, full range of motion, supple. LUNGS: Breath sounds equal, clear to auscultation bilaterally. HEART: Regular rate and rhythm, S1, S2 without murmur, rub or gallop. ABDOMEN: Soft, +epigastric tenderness, +guarding, nondistended, normoactive bowel sounds. EXTREMITIES: 2+ pulses, warm, well-perfused, no edema. NEUROLOGICAL: Cranial nerves II through XII grossly intact. Normal speech, gait not observed. PSYCH: Normal mood, normal affect. SKIN: Warm, dry, normal turgor, no rashes or lesions noted Laboratory Results - last 24 hr 02/03/19 02/03/19 02/03/19 23:20 23:20 23:20 WBC 12.5 H RBC 4.79 Hgb 14.8 Hct 44.3 MCV 92.6 MCH 31.0 MCHC 33.5 RDW 12.5 Plt Count 164 MPV 9.5 Absolute Neuts (auto) Neutrophils % Lymphocytes % Monocytes % Eosinophils % Basophils % Nucleated RBC % ESR 20 PT with INR 19.80 H INR 1.67 H PTT (Actin FS) 29.1 Sodium 136 Potassium 3.7 Chloride 106 Carbon Dioxide 21 Anion Gap 9 BUN 16 Creatinine 0.8 Est GFR (CKD-EPI)AfAm 112.53 Est GFR (CKD-EPI)NonAf 97.10 Random Glucose 123 H Lactic Acid Calcium 8.9 Phosphorus Magnesium Total Bilirubin 0.8 AST 26 ALT 27 Alkaline Phosphatase 82 Creatine Kinase 318 H Creatine Kinase Index 0.5 CK-MB (CK-2) 1.7 Troponin I 0.31 H Total Protein 7.6 Albumin 3.7 02/03/19 02/03/19 02/03/19 23:20 23:20 23:20 WBC RBC Hgb Hct MCV MCH MCHC RDW Plt Count MPV Absolute Neuts (auto) Neutrophils % Lymphocytes % Monocytes % Eosinophils % Basophils % Nucleated RBC % ESR PT with INR INR PTT (Actin FS) Sodium Potassium Chloride Carbon Dioxide Anion Gap BUN Creatinine Est GFR (CKD-EPI)AfAm Est GFR (CKD-EPI)NonAf Random Glucose Lactic Acid 1.4 Calcium Phosphorus Magnesium Total Bilirubin AST ALT Alkaline Phosphatase Creatine Kinase Cancelled Creatine Kinase Index CK-MB (CK-2) 1.7 Troponin I Cancelled Total Protein Albumin 02/04/19 02/04/19 02/04/19 05:30 05:30 05:30 WBC 9.9 RBC 4.99 Hgb 15.7 Hct 45.4 MCV 91.0 MCH 31.3 MCHC 34.4 RDW 12.8 Plt Count 210 D MPV 9.7 Absolute Neuts (auto) 8.4 H Neutrophils % 84.6 H D Lymphocytes % 8.1 D Monocytes % 7.1 Eosinophils % 0.0 D Basophils % 0.2 Nucleated RBC % 0 ESR PT with INR INR PTT (Actin FS) 176.4 H Sodium 139 Potassium 4.2 Chloride 109 H Carbon Dioxide 21 Anion Gap 8 BUN 18 Creatinine 0.9 Est GFR (CKD-EPI)AfAm 107.22 Est GFR (CKD-EPI)NonAf 92.51 Random Glucose 185 H Lactic Acid Calcium 8.6 Phosphorus Magnesium Total Bilirubin AST ALT Alkaline Phosphatase Creatine Kinase Creatine Kinase Index CK-MB (CK-2) Troponin I Total Protein Albumin 02/04/19 02/04/19 02/04/19 07:17 07:17 07:17 WBC RBC Hgb Hct MCV MCH MCHC RDW Plt Count MPV Absolute Neuts (auto) Neutrophils % Lymphocytes % Monocytes % Eosinophils % Basophils % Nucleated RBC % ESR PT with INR 13.30 H INR 1.13 H PTT (Actin FS) 191.0 H Sodium 142 Potassium 4.7 Chloride 110 H Carbon Dioxide 22 Anion Gap 10 BUN 18 Creatinine 1.2 Est GFR (CKD-EPI)AfAm 75.72 Est GFR (CKD-EPI)NonAf 65.33 Random Glucose 182 H Lactic Acid Calcium 8.3 L Phosphorus 4.1 Magnesium 2.2 Total Bilirubin 0.7 AST 24 ALT 25 Alkaline Phosphatase 74 Creatine Kinase Creatine Kinase Index CK-MB (CK-2) Troponin I Total Protein 7.0 Albumin 3.4 Active Medications Generic Name Dose Route Start Last Admin Trade Name Freq PRN Reason Stop Dose Admin Albuterol Sulfate 1 amp 02/04/19 13:37 Ventolin 0.083% Nebulizer Soln - NEB Q6H PRN SHORT OF BREATH/WHEEZING Aspirin 81 mg 02/04/19 10:00 02/04/19 12:14 Asa - PO 81 mg DAILY [facility] Administration Atorvastatin Calcium 80 mg 02/04/19 22:00 Lipitor - PO HS [facility] Chlorhexidine Gluconate 1 applic 02/04/19 22:00 Hibiclens For Decolonization - TP HS [facility] Heparin Sodium (Porcine) 1,000 unit 02/04/19 00:50 Heparin - IVPUSH PRN PRN Heparin Heparin Sodium (Porcine) 5,000 unit 02/04/19 00:50 Heparin - IVPUSH PRN PRN Heparin Hydromorphone HCl 2 mg 02/04/19 00:17 02/04/19 12:12 Dilaudid Vial - IVPB 2 mg Q4H PRN Administration PAIN LEVEL 1-5 Dextrose/Lactated Ringer's 1,000 mls @ 100 mls/hr 02/04/19 00:50 02/03/19 23: 50 D5-Lr - IV 100 mls/hr ASDIR [facility] Administration HEPARIN SOD,PORK IN 0.45% NACL 25,000 units in 500 mls @ 20 mls/hr 02/04/19 00 :50 02/04/19 09:57 Heparin-1/2ns 25,000 Units/500 IVPB 700 units/hr TITR [facility] 14 mls/hr Titration Protocol 1,000 UNITS/HR Metoprolol Succinate 25 mg 02/04/19 10:00 02/04/19 12:14 Toprol Xl - PO 25 mg DAILY [facility] Administration Montelukast Sodium 10 mg 02/04/19 22:00 Singulair - PO HS [facility] Morphine Sulfate 4 mg 02/04/19 00:50 Morphine Sulfate IVPUSH Q6H PRN PAIN LEVEL 4 - 6 Mupirocin 1 applic 02/04/19 10:00 02/04/19 09:42 Bactroban Ointment (For Decolonization) - NS 02/09/19 09:59 1 dose BID [facility] Administration Ondansetron HCl 4 mg 02/04/19 00:50 02/04/19 09:42 Zofran Injection IVPUSH 4 mg Q6H PRN Administration NAUSEA Pantoprazole Sodium 40 mg 02/04/19 10:00 02/04/19 09:42 Protonix Iv IVPUSH 40 mg BID [facility] Administration ASSESSMENT/PLAN: Patient is a 58 year old male with past medical history of HTN, dyslipidemia, CAD, hx of mild elevation of liver enzymes, presented with intermittent epigastric pain for 1 week. CTAP revealed portal vein thrombosis with extension to SMV, proximal splenic vein with small bowel edema. Patient started on heparin drip and subsequently transferred to ICU. #Neuro -awake and alert #Cardiovascular -Portal vein thrombosis extended to SMV and splenic vein -Hx of HTN, HLD and CAD -Cardiology (Dr. Bridges) consulted. Recommendations appreciated. 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 Rand) consulted. #Pulmonology -saturating well on room air -Singulair HS -Albuterol nebs PRN #GI -Portal vein thrombosis extended to SMV and splenic vein -LFTs wnl -Started on heparin drip -Dilauded and Morphine PRN for pain -Zofran PRN for nausea -Surgery (Dr. Hernandez) consulted. Recommendations appreciated. -supportive medical care -hypercoagulable work-up, parasite workup -consider low residue diet as tolerated -GI (Dr. Mathews) consulted. Recommendations appreciated. -monitor abdominal exam, LFTs -deferring EGD at this time #Renal -Renal function stable -will continue to monitor #FEN -Not on any standing fluids -Electrolytes wnl, routine bmp monitoring -NPO for now #Prophylaxis -On heparin drip #Disposition -full code -transfer to med-surg Visit type - Emergency Visit Emergency Visit: Yes ED Registration Date: 02/03/19 Care time: The patient presented to the Emergency Department on the above date and was hospitalized for further evaluation of their emergent condition. - New Patient This patient is new to me today: No - Critical Care Critical Care patient: Yes Total Critical Care Time (in minutes): 37 Critical Care Statement: The care of this patient involved high complexity decision making to prevent further life threatening deterioration of the patient 's condition and/or to evaluate & treat vital organ system(s) failure or risk of failure.
[2019-02-04] MEDS: DEXTROSE 5%-LACTATED RINGERS 1,000 ML IV SCH ×2 (16:32→21:03)
[2019-02-04] MEDS ORDERED: PT OWN MED DRAWER 7, Y5N ONE (17:18)
[2019-02-04] MEDS: HEPARIN SOD,PORK IN 0.45% NACL 25,000 UNITS/500 ML INFUS.BAG IVPB SCH ×2 (18:23→19:00)
[2019-02-04] MEDS: morphine SULFATE 4 MG/ML VIAL IVPUSH PRN (19:47)
[2019-02-04] MEDS: ONDANSETRON 4 MG/2 ML VIAL IVPUSH PRN (19:54)
[2019-02-04] MEDS: ATORVASTATIN CA 80 MG TABLET (FP) PO SCH (21:04)
[2019-02-04] MEDS: MONTELUKAST NA 10 MG TABLET PO SCH (21:04)
[2019-02-04] MEDS: PANTOPRAZOLE SODIUM 40 MG VIAL IVPUSH SCH (21:04)
[2019-02-04] MEDS ORDERED: CHLORHEXIDINE GLUCONATE 4% CLEANSER FOR DECOLONIZATION TP SCH (22:00)
[2019-02-04] MEDS ORDERED: ATORVASTATIN CA 80 MG TABLET (FP) PO SCH (22:00)
[2019-02-04] MEDS ORDERED: MONTELUKAST NA 10 MG TABLET PO SCH (22:00)
--- NOTE | 2019-02-04 22:47 | CONSULT ---
Consult Consult Specialty:: Hematology Oncology Referred by:: Dr Pratt Reason for Consultation:: portal vein thrombosis - History of Present Illness Chief Complaint: abdominal pain X 5 days prior to admission History of Present Illness: 58 y/o [place] male w Hx CAD/PCI/MT , HTN , HLD developed abdo pain/ bloating prior to admission , stabbing, non-radiating X 5 days , nausea ; no melena/BRBPR/hematemesis. On admission pt had T- wave inversions on EKG and high troponin .Initial CT a/p showed only early pancreatitis . US abdo showed fatty liver ,R liver cyst , flow OK in main portal vein. Pains in epigastrium continued ; repeat CT a/p showed acute portal vein thrombosis , hepatic cysts, hepatic steatosis, concentric wall edema of SB loop in R abdomen, mild edema root of mesentery, perienteric mesenteric fluid. . Hemogram and chemistries unremarkable. Pt started on heparin drip. So far, episodes of upper abdo pain still present on dilauded PRN. Pt NPO, on hydration . No surgical intervention planned so far but transfer to a medical center w visceral capabilities being considered if pt not improving w AC. Pt w one episode vomiting today, mild flatus, no BM's in several days.Pt denies family hx of clotting/bleeding problems. - History Source History Provided By: Patient, Medical Record Limitations to Obtaining History: No Limitations - Past Medical History [employer]: No: Alzheimer's, CVA, Dementia, Migraine, Multiple Sclerosis, Peripheral Neuropathy, Parkinson's, Seizure, Syncope, TIA, Vertigo, Other Cardio/Vascular: Yes: CAD, HTN, Hyperlipdemia, [place] Pulmonary: No: Asthma, Bronchitis, Cancer, COPD, O2 Dependent, Pneumonia, Previously Intubated, Pulmonary Embolus, Pulmonary Fibrosis, Sleep Apnea, Other Gastrointestinal: No: Ascites, Cancer, Constipation, Crohn's Disease, Diverticulitis, Diverticulosis, Esophageal Varices, Gastritis, GERD, GI Bleed, Hemorrhoids, Hiatal Hernia, Inflamatory Bowel Disease, Irritable Bowel Disease, Pancreatitis, Peptic Ulcer Disease, Ulcerative Colitis, Other Hepatobiliary: No: Cirrhosis, Cholelithiasis, Cholecystitis, Choledocholithiasis , Hepatitis A, Hepatitis B, Hepatitis C, Other Renal/: No: Renal Failure, Renal Inusuff, BPH, Cancer, Hematuria, Hemodialysis , Neurogenic Bladder, Renal Calculi, UTI, Other Heme/Onc: No: Anemia, B12 Deficiency, Bleeding Disorder, Cancer, Current Chemotherapy, Current Radiation Therapy, Hemochromatosis, Hypercoaguable State, Myeloproliferative Synd, Sickle Cell Disease, Sickle Cell Trait, Thrombocytopenia, Other Infectious Disease: No: AIDS, C-Diff, Herpes Zoster, HIV, MRSA, STD's, Tuberculosis, VREF, Other Psych: No: Addictions, Anxiety, Bipolar, Depression, Panic, Psychosis, Schizophrenia, Other Musculoskeletal: No: Bursitis, Chronic low back pain, Hemiparesis, Hemiplegia, Osteoarthritis, Paraplegia, Other Endocrine: No: Dawson's Disease, [place]'s Disease, Diabetes Insipidus, Diabetes Mellitus, Hyperparathyroidism, Hyperthyroidism, Hypothyroidism, Osteopenia, SIADH, Other Dermatology: No: Basal Cell, Cellulitis, Eczema, Melanoma, Psoriasis, Squamous Cell, Other - Past Surgical History Past Surgical History: Yes: None - Alcohol/Substance Use Hx Alcohol Use: No (Social last was few days ago) History of Substance Use: reports: None - Smoking History Smoking history: Never smoked Have you smoked in the past 12 months: No - Social History History of Recent Travel: No Home Medications - Allergies Allergies/Adverse Reactions: Allergies Allergy/AdvReac Type Severity Reaction Status Date / Time latex Allergy Verified 02/01/19 05:07 adhesive tape AdvReac Verified 02/01/19 05:29 - Home Medications Home Medications: Ambulatory Orders Montelukast Sodium [Singulair] 10 mg PO HS 07/14/18 Aspirin [ASA -] 81 mg PO DAILY 02/01/19 Metoprolol Tartrate [Lopressor -] 25 mg PO DAILY 02/01/19 Family Disease History - Family Disease History Family Disease History: Heart Disease: Father (MT at age 80) Other Family History: no hx thrombophilia/ cancer Review of Systems - Review of Systems Constitutional: reports: Loss of Appetite, Weakness Eyes: denies: No Symptoms, Blind Spots, Blurred Vision, Double Vision, Eye Pain , Floaters, Photophobia, Recent Change in Vision, Other HENT: denies: No Symptoms, Difficult Swallowing, Ear Discharge, Ear Pain, Epistaxis, Gingival Bleeding, Hearing Loss, Mouth Swelling, Nasal Congestion, Ocular Prosthesis, Throat Pain, Toothache, Ringing in Ears, Other Neck: reports: No Symptoms Cardiovascular: denies: No Symptoms, Chest Pain, Edema, Palpitations, Shortness of Breath, Other Respiratory: denies: No Symptoms, Cough, Exercise Intolerance, Hemoptysis, Orthopnea, PND, Snoring, SOB, SOB on Exertion, Wheezing, Other Gastrointestinal: reports: Abdominal Pain, Bloating, Nausea, Vomiting Genitourinary: reports: No Symptoms Musculoskeletal: denies: No Symptoms, Back Pain, Crepitus, Decreased ROM, Extremity Pain, Joint Pain, Joint Swelling, Muscle Pain, Muscle Cramps, Muscle Weakness, Other Integumentary: denies: No Symptoms, Blister, Bruising, Change in Color, Eczema, Erythema, Incision, Lesions, Lump, Pallor, Pruritis, Rash, Wound, Other Neurological: denies: No Symptoms, Change in LOC, Change in Speech, Confusion, Dizziness, Headache, Incoordination, Numbness, Parasthesia, Pre-Existing Deficit , Seizure, Syncope, Tremors, Unsteady Gait, Weakness, Other Hematology/Lymphatic: reports: No Symptoms Psychiatric: reports: No Symptoms Physical Exam Vital Signs: Vital Signs Temperature 99.6 F 02/04/19 21:22 Pulse Rate 97 H 02/04/19 21:22 Respiratory Rate 18 02/04/19 21:22 Blood Pressure 134/99 02/04/19 21:22 O2 Sat by Pulse Oximetry (%) 94 L 02/04/19 21:00 Constitutional: Yes: Well Nourished, No Distress, Mild Distress Eyes: Yes: WNL, Conjunctiva Clear, EOM Intact HENT: Yes: WNL, Atraumatic, Normocephalic Neck: Yes: WNL, Supple, Trachea Midline Cardiovascular: Yes: WNL, Regular Rate and Rhythm Respiratory: Yes: WNL, Regular, CTA Bilaterally Gastrointestinal: Yes: Distention, Hypoactive Bowel Sounds, Tenderness, Epigastrium (no rebound tenderness) ...Rectal Exam: Yes: Deferred Breast(s): Yes: WNL Musculoskeletal: Yes: WNL Extremities: Yes: WNL Edema: No Integumentary: Yes: WNL Neurological: Yes: WNL ...Motor Strength: WNL Labs: CBC, BMP 02/04/19 05:30 02/04/19 07:17 Problem List - Problems (1) Thrombophilia Code(s): D68.59 - OTHER PRIMARY THROMBOPHILIA (2) Generalized abdominal pain Code(s): R10.84 - GENERALIZED ABDOMINAL PAIN (3) Pancreatitis Code(s): K85.90 - ACUTE PANCREATITIS WITHOUT NECROSIS OR INFECTION, UNSP Qualifiers: Chronicity: acute (4) Portal vein thrombosis Code(s): I81 - PORTAL VEIN THROMBOSIS Assessment/Plan Acute portal vein thrombosis in setting of pancreatitis , hepatic steatosis without evidence of cirrhosis so far , on heparin drip. Await more clinical improvement first to move forward w coumadinization. Length of anticoagulation will depend on whether any of the thrombophilia tests come back positive. Continue hydration and narcotic analgesia for pain, surgical f/u to eval. for bowel ischemia.He will need full thrombophilia evaluation to r/o a prothrombotic disorder( eg Protein C and S antigen and activity,, Factor V Leiden , Prothrombin gene rearrangement , anti-phospholipid ab's , homocysteine , Facor VIII activity, MADELEINE-1 gene mutation , lupus anticoag.,, and several others ) . Most of these likely have to be drawn when pt discharged, as outpatient. Prothrombotic entity such as MPD not likely based on nl CBC's .If blood tests are negative, a search for occult malignancy should be done , reema for GI malignancy and HCC (MRI abdo C+ and upper/lower endoscopy). If pt not improving w heparin (obtain therapeutic PTT) , then consider more invasive approaches such as IR interventions. To follow.
[2019-02-05] MEDS: morphine SULFATE 4 MG/ML VIAL IVPUSH PRN ×3 (00:44→14:48)
[2019-02-05] MEDS: HYDROmorphone HCl 2 MG/ML VIAL IVPB PRN ×5 (02:31→20:08)
[2019-02-05 07:34] LABS: HEMATOCRIT 41.1 % (35.4-49); HEMOGLOBIN 13.8 GM/dL (11.7-16.9); MCHC 33.5 g/dl (32.0-35.9); MEAN CELL VOLUME 92.7 fl (80-96); MEAN PLT VOLUME 9.6 fl (7.5-11.1); PLATELET COUNT 201 K/MM3 (134-434); RBC 4.44 M/mm3 (4.00-5.60); RDW 12.6 % (11.9-15.9); WHITE BLOOD COUNT 4.3 K/mm3 (4.0-10.0)
[2019-02-05 08:07] LABS: ALBUMIN 3.2 g/dl (3.4-5.0); CALCIUM 8.4 mg/dL (8.5-10.1); CREATININE 1.1 mg/dL (0.55-1.3); MAGNESIUM 1.8 mg/dL (1.8-2.4); PHOSPHOROUS 2.2 mg/dL (2.5-4.9); POTASSIUM 4.4 mmol/L (3.5-5.1); TOT PROT 6.4 g/dl (6.4-8.2)
[2019-02-05] MEDS: DEXTROSE 5%-LACTATED RINGERS 1,000 ML IV SCH ×2 (08:41→19:35)
[2019-02-05] MEDS: metoPROLOL SUCCINATE 25 MG TAB.SR.24H (FP) PO SCH (10:23)
[2019-02-05] MEDS: ASPIRIN 81 MG CHEWABLE TABLETS PO SCH (10:23)
[2019-02-05] MEDS: PANTOPRAZOLE SODIUM 40 MG VIAL IVPUSH SCH ×2 (10:24→22:07)
--- NOTE | 2019-02-05 11:15 | PN.GI ---
GI Progress Note Subjective: Pt seen/examined at bedside, still with abdominal pain mostly upper abdomen with bloating sensation and nausea. Remains NPO for now. - Objective Vital Signs: Vital Signs Temperature 99.5 F 02/05/19 09:00 Pulse Rate 108 H 02/05/19 09:00 Respiratory Rate 20 02/05/19 09:00 Blood Pressure 142/88 02/05/19 09:00 O2 Sat by Pulse Oximetry (%) 94 L 02/05/19 09:00 Constitutional: No Distress, Calm Cardiovascular: Yes: WNL, Regular Rate and Rhythm Respiratory: Yes: WNL, Regular, CTA Bilaterally ...Palpate: Yes: Other (Abd softly distended, tender diffusely mostly in periumbilical region, no rebound, guarding or rigidity) Labs: CBC, BMP 02/05/19 06:45 02/05/19 06:45 INR, PTT INR 1.13 (0.83-1.09) H 02/04/19 07:17 Problem List - Problems (1) Portal vein thrombosis Assessment/Plan: 58yo male h/o CAD, HTN presents with worsening epigastric/periumbilical pain and nausea s/p initial non-contrast CT suggestive of ?mild pancreatitis with worsening abdominal pain s/p repeat CT reveling acute portal vein thrombosis with extension to SMV now on IV heparin. Lactic acid normal on 02/03. Pt still with persisting abdominal pain and nausea concerning for mesenteric ischemia. -Keep NPO -IVF -Serial abdominal exams -Repeat lactate levels stat -Recommend IR evaluation with Dr. Fitzgerald for CT angiography -Surgery follow up- case d/w Dr. Hernandez for possible surgical intervention pending IR eval/angio -Continue hypercoagulable workup per hematology -ICU re-evaluation Case discussed with medicine, surgery and IR attendings. Code(s): I81 - PORTAL VEIN THROMBOSIS
--- NOTE | 2019-02-05 11:17 | PN ---
Physical Exam: SUBJECTIVE: Patient seen and examined at the bedside. still having pain, worse at night. assured him that we will increase pain meds OBJECTIVE: having increased abdominal pain and increased abdominal distention. also with tachypnea - re-assess for icu discussed with IR, patient will need possible tpa and surgery follow up (dr. jane) for any post up bleeding post tpa. patient will possibly need catheter guided thrombectomy/tpa per IR. CTA done and pending. Dr. Lopez consulted for emperic antibiotic therapy, and recommended cefepime. Vital Signs Period Temp Pulse Resp BP Sys/Cruz Pulse Ox Last 24 Hr 97.7 F-99.6 F 76-108 16-20 125-154/88-99 94-94 GENERAL: The patient is awake, alert, and fully oriented HEAD: Normal with no signs of trauma. EYES: PERRL, extraocular movements intact, sclera anicteric, conjunctiva clear. No ptosis. ENT: Ears normal, nares patent, oropharynx clear without exudates, moist mucous membranes. NECK: Trachea midline, full range of motion, supple. LUNGS: Breath sounds equal, diminished to auscultation bilaterally, HEART: Regular rate and rhythm, ABDOMEN: soft, tender, hypoactive bowel sounds. abdominal pain, abdominal distended EXTREMITIES: no edema. NEUROLOGICAL: Normal speech, gait not observed. PSYCH: Normal mood, normal affect. SKIN: Warm, dry, normal turgor, no rashes or lesions noted Laboratory Results - last 24 hr 02/04/19 02/04/19 02/04/19 07:17 07:17 16:20 WBC RBC Hgb Hct MCV MCH MCHC RDW Plt Count MPV PTT (Actin FS) 191.0 H 87.5 H Sodium Potassium Chloride Carbon Dioxide Anion Gap BUN Creatinine Est GFR (CKD-EPI)AfAm Est GFR (CKD-EPI)NonAf Random Glucose Calcium Phosphorus Magnesium Total Bilirubin AST ALT Alkaline Phosphatase Total Protein Albumin Tumor Marker AFP 2.1 02/05/19 02/05/19 02/05/19 01:15 06:45 06:45 WBC 4.3 RBC 4.44 Hgb 13.8 Hct 41.1 MCV 92.7 MCH 31.0 MCHC 33.5 RDW 12.6 Plt Count 201 MPV 9.6 PTT (Actin FS) 36.3 41.6 H Sodium Potassium Chloride Carbon Dioxide Anion Gap BUN Creatinine Est GFR (CKD-EPI)AfAm Est GFR (CKD-EPI)NonAf Random Glucose Calcium Phosphorus Magnesium Total Bilirubin AST ALT Alkaline Phosphatase Total Protein Albumin Tumor Marker AFP 02/05/19 06:45 WBC RBC Hgb Hct MCV MCH MCHC RDW Plt Count MPV PTT (Actin FS) Sodium 142 Potassium 4.4 Chloride 108 H Carbon Dioxide 29 Anion Gap 5 L BUN 24 H Creatinine 1.1 Est GFR (CKD-EPI)AfAm 84.12 Est GFR (CKD-EPI)NonAf 72.58 Random Glucose 138 H Calcium 8.4 L Phosphorus 2.2 L Magnesium 1.8 Total Bilirubin 1.0 AST 31 ALT 22 Alkaline Phosphatase 57 Total Protein 6.4 Albumin 3.2 L Tumor Marker AFP Active Medications Generic Name Dose Route Start Last Admin Trade Name Freq PRN Reason Stop Dose Admin Albuterol Sulfate 1 amp 02/04/19 13:37 02/04/19 15:25 Ventolin 0.083% Nebulizer Soln - NEB 1 amp Q6H PRN Administration SHORT OF BREATH/WHEEZING Aspirin 81 mg 02/05/19 10:00 02/05/19 10:23 Asa - PO 81 mg DAILY ELZA Administration Atorvastatin Calcium 80 mg 02/04/19 22:00 02/04/19 21:04 Lipitor - PO 80 mg HS ELZA Administration Heparin Sodium (Porcine) 1,000 unit 02/04/19 15:13 02/05/19 10:32 Heparin - IVPUSH 1,000 unit PRN PRN Administration Heparin Heparin Sodium (Porcine) 5,000 unit 02/04/19 15:13 Heparin - IVPUSH PRN PRN Heparin Hydromorphone HCl 2 mg 02/04/19 15:50 02/05/19 06:19 Dilaudid Vial - IVPB 2 mg Q4H PRN Administration PAIN LEVEL 7 - 10 Dextrose/Lactated Ringer's 1,000 mls @ 100 mls/hr 02/04/19 15:13 02/05/19 08: 41 D5-Lr - IV 100 mls/hr ASDIR ELZA Administration HEPARIN SOD,PORK IN 0.45% NACL 25,000 units in 500 mls @ 20 mls/hr 02/04/19 15 :13 02/05/19 10:30 Heparin-1/2ns 25,000 Units/500 IVPB 850 units/hr TITR ELZA 17 mls/hr Titration Protocol 1,000 UNITS/HR Metoprolol Succinate 25 mg 02/05/19 10:00 02/05/19 10:23 Toprol Xl - PO 25 mg DAILY ELZA Administration Montelukast Sodium 10 mg 02/04/19 22:00 02/04/19 21:04 Singulair - PO 10 mg HS ELZA Administration Morphine Sulfate 4 mg 02/04/19 15:13 02/05/19 08:35 Morphine Sulfate IVPUSH 4 mg Q6H PRN Administration PAIN LEVEL 4 - 6 Ondansetron HCl 4 mg 02/04/19 15:13 02/04/19 19:54 Zofran Injection IVPUSH 4 mg Q6H PRN Administration NAUSEA Pantoprazole Sodium 40 mg 02/04/19 22:00 02/05/19 10:24 Protonix Iv IVPUSH 40 mg BID ELZA Administration ASSESSMENT/PLAN: Patient is a 58 year old male with a past medical history of hypertension, dyslipidemia, non obstructive CAD s/p NSTEMI, s/p cath on 07/15/2019 at [facility]. Patient presents to the ED on 02/03/19 with c/o epigastric pain, non radiating associated with mild nausea, no vomiting or diarrhea. Pain worsened and he had a repeat CT abdomen and pelvis overnight which showed portal vein thrombosis with SMV and splenic extension. 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 Heparin drip initiated overnight. having increased abdominal pain and increased abdominal distention. also with tachypnea. pain medications increased. discussed with IR (dr tamayo), patient will need possible thrombectomy/tpa pending cta. will also need surgery follow up (dr. jane) for any post up bleeding post tpa. hematology/oncology evaluation to rule out underlying malignancy. ID: Lactic acidosis start on emperic cefepime per ID. ID following for parasite workup Card: Demand ischemia/elevated troponins. followed by cardiology. Hypertension: on metoprolol. monitor bp, given additional dose of metoprolol for tachycardia. Hypercholesterolemia: started on statin therapy Pulm: On Singulair and albuterol prn Renal Renal function stable. monitor kidney function. fen on d5, LR @ 100 NPO prophy On heparin drip disposition: full code. Visit type - Emergency Visit Emergency Visit: Yes ED Registration Date: 02/03/19 Care time: The patient presented to the Emergency Department on the above date and was hospitalized for further evaluation of their emergent condition. - New Patient This patient is new to me today: No - Critical Care Critical Care patient: No - Discharge Referral Referred to [facility] No
--- NOTE | 2019-02-05 12:04 | CON.ID ---
Consult Consult Specialty:: infectiou diseases - Past Medical History NEW MEDIA STRATEGIST: No: Alzheimer's, CVA, Dementia, Migraine, Multiple Sclerosis, Peripheral Neuropathy, Parkinson's, Seizure, Syncope, TIA, Vertigo, Other Cardio/Vascular: Yes: CAD, HTN, Hyperlipdemia, NE Pulmonary: No: Asthma, Bronchitis, Cancer, COPD, O2 Dependent, Pneumonia, Previously Intubated, Pulmonary Embolus, Pulmonary Fibrosis, Sleep Apnea, Other Gastrointestinal: No: Ascites, Cancer, Constipation, Crohn's Disease, Diverticulitis, Diverticulosis, Esophageal Varices, Gastritis, GERD, GI Bleed, Hemorrhoids, Hiatal Hernia, Inflamatory Bowel Disease, Irritable Bowel Disease, Pancreatitis, Peptic Ulcer Disease, Ulcerative Colitis, Other Hepatobiliary: No: Cirrhosis, Cholelithiasis, Cholecystitis, Choledocholithiasis , Hepatitis A, Hepatitis B, Hepatitis C, Other Renal/: No: Renal Failure, Renal Inusuff, BPH, Cancer, Hematuria, Hemodialysis , Neurogenic Bladder, Renal Calculi, UTI, Other Infectious Disease: No: AIDS, C-Diff, Herpes Zoster, HIV, MRSA, STD's, Tuberculosis, VREF, Other Psych: No: Addictions, Anxiety, Bipolar, Depression, Panic, Psychosis, Schizophrenia, Other Musculoskeletal: No: Bursitis, Chronic low back pain, Hemiparesis, Hemiplegia, Osteoarthritis, Paraplegia, Other Endocrine: No: Dodge's Disease, Mario's Disease, Diabetes Insipidus, Diabetes Mellitus, Hyperparathyroidism, Hyperthyroidism, Hypothyroidism, Osteopenia, SIADH, Other Dermatology: No: Basal Cell, Cellulitis, Eczema, Melanoma, Psoriasis, Squamous Cell, Other - Past Surgical History Past Surgical History: Yes: None - Alcohol/Substance Use Hx Alcohol Use: No (Social last was few days ago) History of Substance Use: reports: None - Smoking History Smoking history: Never smoked Have you smoked in the past 12 months: No - Social History History of Recent Travel: No Home Medications - Allergies Allergies/Adverse Reactions: Allergies Allergy/AdvReac Type Severity Reaction Status Date / Time latex Allergy Verified 02/01/19 05:07 adhesive tape AdvReac Verified 02/01/19 05:29 - Home Medications Home Medications: Ambulatory Orders Montelukast Sodium [Singulair] 10 mg PO HS 07/14/18 Aspirin [ASA -] 81 mg PO DAILY 02/01/19 Metoprolol Tartrate [Lopressor -] 25 mg PO DAILY 02/01/19 Family Disease History - Family Disease History Family Disease History: Heart Disease: Father (NE at age 80) Other Family History: no hx thrombophilia/ cancer Physical Exam Vital Signs: Vital Signs Temperature 99.5 F 02/05/19 09:00 Pulse Rate 108 H 02/05/19 09:00 Respiratory Rate 20 02/05/19 09:00 Blood Pressure 142/88 02/05/19 09:00 O2 Sat by Pulse Oximetry (%) 94 L 02/05/19 09:00 Labs: CBC, BMP 02/05/19 06:45 02/05/19 06:45
--- NOTE | 2019-02-05 13:15 | PN ---
Progress Note, Physician History of Present Illness: Still with abdominal pain and distention. +nausea. +flatus but no BM. No fevers recorded. PTT subtherapeutic, received additional heparin bolus and uptitration of heparin gtt with repeat PTT check 16:30. - Current Medication List Current Medications: Active Medications Albuterol Sulfate (Ventolin 0.083% Nebulizer Soln -) 1 amp NEB Q6H PRN PRN Reason: SHORT OF BREATH/WHEEZING Last Admin: 02/04/19 15:25 Dose: 1 amp Aspirin (Asa -) 81 mg PO DAILY [facility] Last Admin: 02/05/19 10:23 Dose: 81 mg Atorvastatin Calcium (Lipitor -) 80 mg PO HS [facility] Last Admin: 02/04/19 21:04 Dose: 80 mg Heparin Sodium (Porcine) (Heparin -) 1,000 unit IVPUSH PRN PRN PRN Reason: Heparin Last Admin: 02/05/19 10:32 Dose: 1,000 unit Heparin Sodium (Porcine) (Heparin -) 5,000 unit IVPUSH PRN PRN PRN Reason: Heparin Hydromorphone HCl (Dilaudid Vial -) 3 mg IVPB Q4H PRN PRN Reason: PAIN LEVEL 7 - 10 Dextrose/Lactated Ringer's (D5-Lr -) 1,000 mls @ 100 mls/hr IV ASDIR [facility] Last Admin: 02/05/19 08:41 Dose: 100 mls/hr HEPARIN SOD,PORK IN 0.45% NACL (Heparin-1/2ns 25,000 Units/500) 25,000 units in 500 mls @ 20 mls/hr IVPB TITR [facility]; Protocol Last Titration: 02/05/19 10:30 Dose: 850 units/hr, 17 mls/hr Metoprolol Succinate (Toprol Xl -) 25 mg PO DAILY [facility] Last Admin: 02/05/19 10:23 Dose: 25 mg Montelukast Sodium (Singulair -) 10 mg PO HS [facility] Last Admin: 02/04/19 21:04 Dose: 10 mg Morphine Sulfate (Morphine Sulfate) 4 mg IVPUSH Q6H PRN PRN Reason: PAIN LEVEL 4 - 6 Last Admin: 02/05/19 08:35 Dose: 4 mg Ondansetron HCl (Zofran Injection) 4 mg IVPUSH Q6H PRN PRN Reason: NAUSEA Last Admin: 02/04/19 19:54 Dose: 4 mg Pantoprazole Sodium (Protonix Iv) 40 mg IVPUSH BID ELZA Last Admin: 02/05/19 10:24 Dose: 40 mg - Objective Vital Signs: Vital Signs Temperature 99.5 F 02/05/19 09:00 Pulse Rate 108 H 02/05/19 09:00 Respiratory Rate 20 02/05/19 09:00 Blood Pressure 142/88 02/05/19 09:00 O2 Sat by Pulse Oximetry (%) 94 L 02/05/19 09:00 Constitutional: Yes: No Distress, Calm Neck: Yes: Supple Cardiovascular: Yes: Regular Rate and Rhythm Respiratory: Yes: Regular, CTA Bilaterally Gastrointestinal: Yes: Soft, Hypoactive Bowel Sounds, Tenderness Edema: No Labs: CBC, BMP 02/05/19 06:45 02/05/19 06:45 INR, PTT INR 1.13 (0.83-1.09) H 02/04/19 07:17 Problem List - Problems (1) Apical variant hypertrophic cardiomyopathy Code(s): I42.2 - OTHER HYPERTROPHIC CARDIOMYOPATHY (2) Pancreatitis Code(s): K85.90 - ACUTE PANCREATITIS WITHOUT NECROSIS OR INFECTION, UNSP Qualifiers: Chronicity: acute (3) Portal vein thrombosis Code(s): I81 - PORTAL VEIN THROMBOSIS (4) HTN (hypertension) Code(s): I10 - ESSENTIAL (PRIMARY) HYPERTENSION Qualifiers: Hypertension type: essential hypertension Qualified Code(s): I10 - Essential (primary) hypertension (5) Hypercholesterolemia Code(s): E78.00 - PURE HYPERCHOLESTEROLEMIA, UNSPECIFIED Assessment/Plan 07/15/2018 [facility] shows nonobstructive CAD 50% prox LCx, luminal irregularities, elevated LVEDP 23 mmHg, LV gram c/w spade-like apical hypertrophic cardiomyopathy, Mynx deployed right [employer] access site, no complications. Plan for medical therapy with Toprol XL 25 qd, Lipitor 20 qd, ASA 81 qd 02/03/2019 Echo: Normal RV and LV size and fxn LVEF 60-65%, tr MR, TR 1. Acute portal vein thrombosis with SMV and splenic extension in setting of pancreatitis 2. CAD non-obstructive, angina, demand ischemia 3. HTN 4. Hypercholesterolemia 5. Apical hypertrophic cardiomyopathy PLAN: 1. Heparin gtt per PTT, eventual coumadin per INR, f/u abd/pelvic CTA and to decide on thrombectomy. Hypercoagulable work up including Protein C and S antigen and activity,, Factor V Leiden , Prothrombin gene rearrangement , anti- phospholipid ab's , homocysteine, Facor VIII activity, MADELEINE-1 gene mutation , lupus anticoag is warranted. 2. GI and Surgery input noted. Considering thrombectomy of portal vein thrombosis pending CTA 3. Continue Metoprolol 25 qd 4. Lipitor 80 qd as long as LFT remain normal 5. Zofran and analgesia PRN
--- NOTE | 2019-02-05 13:32 | PN ---
Progress Note (short form) - Note Progress Note: PULMONARY/CCM Still with abdominal pain and distention. +nausea. +flatus but no BM. No fevers recorded. PTT subtherapeutic, received additional heparin bolus. Vital Signs Period Temp Pulse Resp BP Sys/Cruz Pulse Ox Last 24 Hr 98.0 F-99.6 F 85-108 16-20 125-154/88-99 94-94 Gen: mildly tachypneic with exertion Heart: RRR Lung: decreased breath sounds at the bases Abd: distended, diffusely tender, no rebound Ext: no edema CBC, BMP 02/05/19 06:45 02/05/19 06:45 Active Medications Albuterol Sulfate (Ventolin 0.083% Nebulizer Soln -) 1 amp NEB Q6H PRN PRN Reason: SHORT OF BREATH/WHEEZING Last Admin: 02/04/19 15:25 Dose: 1 amp Aspirin (Asa -) 81 mg PO DAILY ELZA Last Admin: 02/05/19 10:23 Dose: 81 mg Atorvastatin Calcium (Lipitor -) 80 mg PO HS ELZA Last Admin: 02/04/19 21:04 Dose: 80 mg Heparin Sodium (Porcine) (Heparin -) 1,000 unit IVPUSH PRN PRN PRN Reason: Heparin Last Admin: 02/05/19 10:32 Dose: 1,000 unit Heparin Sodium (Porcine) (Heparin -) 5,000 unit IVPUSH PRN PRN PRN Reason: Heparin Hydromorphone HCl (Dilaudid Vial -) 3 mg IVPB Q4H PRN PRN Reason: PAIN LEVEL 7 - 10 Dextrose/Lactated Ringer's (D5-Lr -) 1,000 mls @ 100 mls/hr IV ASDIR ELZA Last Admin: 02/05/19 08:41 Dose: 100 mls/hr HEPARIN SOD,PORK IN 0.45% NACL (Heparin-1/2ns 25,000 Units/500) 25,000 units in 500 mls @ 20 mls/hr IVPB TITR ELZA; Protocol Last Titration: 02/05/19 10:30 Dose: 850 units/hr, 17 mls/hr Metoprolol Succinate (Toprol Xl -) 25 mg PO DAILY ELZA Last Admin: 02/05/19 10:23 Dose: 25 mg Montelukast Sodium (Singulair -) 10 mg PO HS [facility] Last Admin: 02/04/19 21:04 Dose: 10 mg Morphine Sulfate (Morphine Sulfate) 4 mg IVPUSH Q6H PRN PRN Reason: PAIN LEVEL 4 - 6 Last Admin: 02/05/19 08:35 Dose: 4 mg Ondansetron HCl (Zofran Injection) 4 mg IVPUSH Q6H PRN PRN Reason: NAUSEA Last Admin: 02/04/19 19:54 Dose: 4 mg Pantoprazole Sodium (Protonix Iv) 40 mg IVPUSH BID [facility] Last Admin: 02/05/19 10:24 Dose: 40 mg A/P Portal Vein/SMV/Splenic Vein Thrombosis CAD +Troponins likely Demand Ischemia HTN Hypercholesterolemia - continue anticoagulation to therapeutic range - for CTA and IR f/u - pain control - incentive spirometry - antiemetics - if IR unable to intervene, would transfer to tertiary [facility] - will continue to follow
--- NOTE | 2019-02-05 14:20 | PN ---
Progress Note, Physician - Current Medication List Current Medications: Active Medications Albuterol Sulfate (Ventolin 0.083% Nebulizer Soln -) 1 amp NEB Q6H PRN PRN Reason: SHORT OF BREATH/WHEEZING Last Admin: 02/04/19 15:25 Dose: 1 amp Aspirin (Asa -) 81 mg PO DAILY [facility] Last Admin: 02/05/19 10:23 Dose: 81 mg Atorvastatin Calcium (Lipitor -) 80 mg PO HS [facility] Last Admin: 02/04/19 21:04 Dose: 80 mg Heparin Sodium (Porcine) (Heparin -) 1,000 unit IVPUSH PRN PRN PRN Reason: Heparin Last Admin: 02/05/19 10:32 Dose: 1,000 unit Heparin Sodium (Porcine) (Heparin -) 5,000 unit IVPUSH PRN PRN PRN Reason: Heparin Hydromorphone HCl (Dilaudid Vial -) 3 mg IVPB Q4H PRN PRN Reason: PAIN LEVEL 7 - 10 Dextrose/Lactated Ringer's (D5-Lr -) 1,000 mls @ 100 mls/hr IV ASDIR [facility] Last Admin: 02/05/19 08:41 Dose: 100 mls/hr HEPARIN SOD,PORK IN 0.45% NACL (Heparin-1/2ns 25,000 Units/500) 25,000 units in 500 mls @ 20 mls/hr IVPB TITR [facility]; Protocol Last Titration: 02/05/19 10:30 Dose: 850 units/hr, 17 mls/hr Metoprolol Succinate (Toprol Xl -) 25 mg PO DAILY [facility] Last Admin: 02/05/19 10:23 Dose: 25 mg Montelukast Sodium (Singulair -) 10 mg PO HS [facility] Last Admin: 02/04/19 21:04 Dose: 10 mg Morphine Sulfate (Morphine Sulfate) 4 mg IVPUSH Q6H PRN PRN Reason: PAIN LEVEL 4 - 6 Last Admin: 02/05/19 08:35 Dose: 4 mg Ondansetron HCl (Zofran Injection) 4 mg IVPUSH Q6H PRN PRN Reason: NAUSEA Last Admin: 02/04/19 19:54 Dose: 4 mg Pantoprazole Sodium (Protonix Iv) 40 mg IVPUSH BID [facility] Last Admin: 02/05/19 10:24 Dose: 40 mg - Objective Vital Signs: Vital Signs Temperature 99.5 F 02/05/19 09:00 Pulse Rate 108 H 02/05/19 09:00 Respiratory Rate 20 02/05/19 09:00 Blood Pressure 142/88 02/05/19 09:00 O2 Sat by Pulse Oximetry (%) 94 L 02/05/19 09:00 Labs: CBC, BMP 02/05/19 06:45 02/05/19 06:45 INR, PTT INR 1.13 (0.83-1.09) H 02/04/19 07:17 Problem List - Problems (1) Portal vein thrombosis Code(s): I81 - PORTAL VEIN THROMBOSIS (2) Generalized abdominal pain Code(s): R10.84 - GENERALIZED ABDOMINAL PAIN (3) Pancreatitis Code(s): K85.90 - ACUTE PANCREATITIS WITHOUT NECROSIS OR INFECTION, UNSP Qualifiers: Chronicity: acute (4) HTN (hypertension) Code(s): I10 - ESSENTIAL (PRIMARY) HYPERTENSION Qualifiers: Hypertension type: essential hypertension Qualified Code(s): I10 - Essential (primary) hypertension (5) Hypercholesterolemia Code(s): E78.00 - PURE HYPERCHOLESTEROLEMIA, UNSPECIFIED (6) NSTEMI (non-ST elevated myocardial infarction) Code(s): I21.4 - NON-ST ELEVATION (NSTEMI) MYOCARDIAL INFARCTION
[2019-02-05] MEDS: HEPARIN SOD,PORK IN 0.45% NACL 25,000 UNITS/500 ML INFUS.BAG IVPB SCH (14:22)
[2019-02-05] MEDS ORDERED: SODIUM CHLORIDE 1,000 ML IV STA (14:28)
[2019-02-05] MEDS ORDERED: metoPROLOL SUCCINATE 25 MG TAB.SR.24H (FP) PO ONE (18:33)
[2019-02-05] MEDS ORDERED: CEFEPIME HCL/D5W 1 GM/50 ML BAG IVPB SCH (18:45)
[2019-02-05] MEDS ORDERED: CEFEPIME HCL 1 GM VIAL (RESTRICTED TO ID) ONE (19:32)
[2019-02-05] MEDS ORDERED: DEXTROSE 5%-WATER - 50 ML IVPB ONE (19:32)
[2019-02-05] MEDS: ATORVASTATIN CA 80 MG TABLET (FP) PO SCH (22:07)
[2019-02-05] MEDS: MONTELUKAST NA 10 MG TABLET PO SCH (22:07)
[2019-02-05] MEDS: CEFEPIME 1 GM in DEXTROSE 5%-WATER - 50 ML IVPB SCH (22:07)
[2019-02-06] MEDS: HYDROmorphone HCl 2 MG/ML VIAL IVPB PRN ×4 (00:26→14:59)
[2019-02-06] MEDS ORDERED: DEXTROSE 5%-WATER - 50 ML IVPB ONE ×3 (01:14→16:57)
[2019-02-06] MEDS ORDERED: CEFEPIME HCL 1 GM VIAL (RESTRICTED TO ID) ONE ×3 (01:14→16:56)
[2019-02-06] MEDS: CEFEPIME 1 GM in DEXTROSE 5%-WATER - 50 ML IVPB SCH ×3 (01:22→17:05)
[2019-02-06] MEDS ORDERED: ACETAMINOPHEN 1000 MG/100 ML VIAL (NON FORMULARY) IVPB ONE (02:11)
[2019-02-06] MEDS: DEXTROSE 5%-LACTATED RINGERS 1,000 ML IV SCH ×2 (05:38→17:27)
[2019-02-06 05:49] VITALS: TEMP 98.3
[2019-02-06 07:13] LABS: BASO % 0.5 % (0-2.0); EOS % 0.3 % (0-4.5); HEMATOCRIT 36.3 % (35.4-49); HEMOGLOBIN 12.1 GM/dL (11.7-16.9); LYMPH % 19.7 % (8-40); MCH 30.9 pg (25.7-33.7); MCHC 33.5 g/dl (32.0-35.9); MEAN CELL VOLUME 92.4 fl (80-96); MEAN PLT VOLUME 9.3 fl (7.5-11.1); MONO % 13.3 % (3.8-10.2); NEUT % 66.2 % (42.8-82.8); PLATELET COUNT 197 K/MM3 (134-434); RBC 3.93 M/mm3 (4.00-5.60); RDW 12.3 % (11.9-15.9); WHITE BLOOD COUNT 4.7 K/mm3 (4.0-10.0)
[2019-02-06] MEDS: ALBUTEROL SO4 0.083% IH SOL 2.5 MG/3 ML VIAL.NEB. NEB PRN (07:49)
[2019-02-06 08:28] LABS: ALBUMIN 2.9 g/dl (3.4-5.0); BILIRUBIN,TOTAL 0.9 mg/dL (0.2-1); CALCIUM 8.4 mg/dL (8.5-10.1); CREATININE 1.2 mg/dL (0.55-1.3); MAGNESIUM 2.2 mg/dL (1.8-2.4); TOT PROT 5.8 g/dl (6.4-8.2)
--- NOTE | 2019-02-06 09:10 | PN ---
Progress Note (short form) - Note Progress Note: Still with abdominal pain and distention, but better than yesterday. (+) nausea. (+) flatus No fevers recorded. On IV Heprin per protocol Intake & Output 02/03/19 02/04/19 02/05/19 02/06/19 23:59 23:59 23:59 23:59 Intake Total 850 1358 2764 819 Balance 850 1358 2764 819 Weight 165 lb Last Vital Signs Temp Pulse Resp BP Pulse Ox 98.3 F 88 20 118/87 94 L 02/06/19 05:47 02/06/19 05:47 02/06/19 05:47 02/06/19 05:47 02/05/19 21:00 Active Medications Albuterol Sulfate (Ventolin 0.083% Nebulizer Soln -) 1 amp NEB Q6H PRN PRN Reason: SHORT OF BREATH/WHEEZING Last Admin: 02/06/19 07:49 Dose: 1 amp Aspirin (Asa -) 81 mg PO DAILY [facility] Last Admin: 02/05/19 10:23 Dose: 81 mg Atorvastatin Calcium (Lipitor -) 80 mg PO HS [facility] Last Admin: 02/05/19 22:07 Dose: 80 mg Heparin Sodium (Porcine) (Heparin -) 1,000 unit IVPUSH PRN PRN PRN Reason: Heparin Last Admin: 02/05/19 10:32 Dose: 1,000 unit Heparin Sodium (Porcine) (Heparin -) 5,000 unit IVPUSH PRN PRN PRN Reason: Heparin Hydromorphone HCl (Dilaudid Vial -) 4 mg IVPB Q4H PRN PRN Reason: PAIN LEVEL 7 - 10 Dextrose/Lactated Ringer's (D5-Lr -) 1,000 mls @ 100 mls/hr IV ASDIR ELZA Last Admin: 02/06/19 05:38 Dose: 100 mls/hr HEPARIN SOD,PORK IN 0.45% NACL (Heparin-1/2ns 25,000 Units/500) 25,000 units in 500 mls @ 20 mls/hr IVPB TITR [facility]ZA; Protocol Last Admin: 02/05/19 14:22 Dose: 850 units/hr, 17 mls/hr Cefepime HCl 1 gm/ Dextrose 50 mls @ 100 mls/hr IVPB Q8H-IV [facility]ZA; Protocol Last Admin: 02/06/19 01:22 Dose: 100 mls/hr Lidocaine (Lidoderm Patch -) 2 patch TP DAILY [facility] Metoprolol Succinate (Toprol Xl -) 25 mg PO DAILY [facility] Last Admin: 02/05/19 10:23 Dose: 25 mg Miscellaneous (Lidoderm Patch Removal) 1 each MC DAILY@2200 [facility] Montelukast Sodium (Singulair -) 10 mg PO HS [facility] Last Admin: 02/05/19 22:07 Dose: 10 mg Morphine Sulfate (Morphine Sulfate) 4 mg IVPUSH Q6H PRN PRN Reason: PAIN LEVEL 4 - 6 Last Admin: 02/05/19 14:48 Dose: 4 mg Ondansetron HCl (Zofran Injection) 4 mg IVPUSH Q6H PRN PRN Reason: NAUSEA Last Admin: 02/04/19 19:54 Dose: 4 mg Pantoprazole Sodium (Protonix Iv) 40 mg IVPUSH BID [facility] Last Admin: 02/05/19 22:07 Dose: 40 mg Gen: mildly tachypneic with exertion Heart: RRR Lung: decreased breath sounds at the bases Abd: distended, diffusely tender, no rebound Ext: no edema Laboratory Results - last 24 hr 02/05/19 02/05/19 02/05/19 11:20 15:15 18:00 WBC RBC Hgb Hct MCV MCH MCHC RDW Plt Count MPV Absolute Neuts (auto) Neutrophils % Lymphocytes % Monocytes % Eosinophils % Basophils % Nucleated RBC % PTT (Actin FS) 54.4 H Sodium Potassium Chloride Carbon Dioxide Anion Gap BUN Creatinine Est GFR (CKD-EPI)AfAm Est GFR (CKD-EPI)NonAf Random Glucose Lactic Acid 2.5 H* 1.7 Calcium Magnesium Total Bilirubin AST ALT Alkaline Phosphatase Total Protein Albumin 02/06/19 02/06/19 02/06/19 06:30 06:30 06:30 WBC 4.7 RBC 3.93 L Hgb 12.1 Hct 36.3 MCV 92.4 MCH 30.9 MCHC 33.5 RDW 12.3 Plt Count 197 MPV 9.3 Absolute Neuts (auto) 3.1 Neutrophils % 66.2 D Lymphocytes % 19.7 D Monocytes % 13.3 H D Eosinophils % 0.3 D Basophils % 0.5 Nucleated RBC % 0 PTT (Actin FS) 88.1 H Sodium 143 Potassium 4.0 Chloride 111 H Carbon Dioxide 24 Anion Gap 8 BUN 30 H Creatinine 1.2 Est GFR (CKD-EPI)AfAm 75.72 Est GFR (CKD-EPI)NonAf 65.33 Random Glucose 105 Lactic Acid Calcium 8.4 L Magnesium 2.2 Total Bilirubin 0.9 AST 53 H ALT 25 Alkaline Phosphatase 45 Total Protein 5.8 L Albumin 2.9 L A/P Portal Vein/SMV/Splenic Vein Thrombosis CAD +Troponins likely Demand Ischemia HTN Hypercholesterolemia - continue anticoagulation to therapeutic range - pain control - incentive spirometry - antiemetics - if IR unable to timely intervene, would transfer to tertiary medical center - will continue to follow, please call for any clinical worsening Dr Biggs
--- NOTE | 2019-02-06 09:44 | PN ---
Progress Note, Physician History of Present Illness: Still with abdominal pain and distention. +nausea. +flatus but no BM. No fevers recorded. PTT subtherapeutic, received additional heparin bolus and uptitration of heparin gtt with repeat PTT check 16:30. - Current Medication List Current Medications: Active Medications Albuterol Sulfate (Ventolin 0.083% Nebulizer Soln -) 1 amp NEB Q6H PRN PRN Reason: SHORT OF BREATH/WHEEZING Last Admin: 02/06/19 07:49 Dose: 1 amp Aspirin (Asa -) 81 mg PO DAILY [facility] Last Admin: 02/05/19 10:23 Dose: 81 mg Atorvastatin Calcium (Lipitor -) 80 mg PO HS [facility] Last Admin: 02/05/19 22:07 Dose: 80 mg Heparin Sodium (Porcine) (Heparin -) 1,000 unit IVPUSH PRN PRN PRN Reason: Heparin Last Admin: 02/05/19 10:32 Dose: 1,000 unit Heparin Sodium (Porcine) (Heparin -) 5,000 unit IVPUSH PRN PRN PRN Reason: Heparin Hydromorphone HCl (Dilaudid Vial -) 4 mg IVPB Q4H PRN PRN Reason: PAIN LEVEL 7 - 10 Dextrose/Lactated Ringer's (D5-Lr -) 1,000 mls @ 100 mls/hr IV ASDIR [facility] Last Admin: 02/06/19 05:38 Dose: 100 mls/hr HEPARIN SOD,PORK IN 0.45% NACL (Heparin-1/2ns 25,000 Units/500) 25,000 units in 500 mls @ 20 mls/hr IVPB TITR [facility]; Protocol Last Admin: 02/05/19 14:22 Dose: 850 units/hr, 17 mls/hr Cefepime HCl 1 gm/ Dextrose 50 mls @ 100 mls/hr IVPB Q8H-IV [facility]; Protocol Last Admin: 02/06/19 01:22 Dose: 100 mls/hr Lidocaine (Lidoderm Patch -) 2 patch TP DAILY [facility] Metoprolol Succinate (Toprol Xl -) 25 mg PO DAILY [facility] Last Admin: 02/05/19 10:23 Dose: 25 mg Miscellaneous (Lidoderm Patch Removal) 1 each MC DAILY@2200 [facility] Montelukast Sodium (Singulair -) 10 mg PO HS [facility] Last Admin: 02/05/19 22:07 Dose: 10 mg Morphine Sulfate (Morphine Sulfate) 4 mg IVPUSH Q6H PRN PRN Reason: PAIN LEVEL 4 - 6 Last Admin: 02/05/19 14:48 Dose: 4 mg Ondansetron HCl (Zofran Injection) 4 mg IVPUSH Q6H PRN PRN Reason: NAUSEA Last Admin: 02/04/19 19:54 Dose: 4 mg Pantoprazole Sodium (Protonix Iv) 40 mg IVPUSH BID [facility] Last Admin: 02/05/19 22:07 Dose: 40 mg - Objective Vital Signs: Vital Signs Temperature 98.3 F 02/06/19 05:47 Pulse Rate 88 02/06/19 05:47 Respiratory Rate 20 02/06/19 05:47 Blood Pressure 118/87 02/06/19 05:47 O2 Sat by Pulse Oximetry (%) 94 L 02/05/19 21:00 Constitutional: Yes: Moderate Distress Neck: Yes: Supple Cardiovascular: Yes: Regular Rate and Rhythm Respiratory: Yes: Regular, Diminished Gastrointestinal: Yes: Distention, Hypoactive Bowel Sounds, Tenderness Edema: No Labs: CBC, BMP 02/06/19 06:30 02/06/19 06:30 INR, PTT INR 1.13 (0.83-1.09) H 02/04/19 07:17 Problem List - Problems (1) Apical variant hypertrophic cardiomyopathy Code(s): I42.2 - OTHER HYPERTROPHIC CARDIOMYOPATHY (2) Pancreatitis Code(s): K85.90 - ACUTE PANCREATITIS WITHOUT NECROSIS OR INFECTION, UNSP Qualifiers: Chronicity: acute (3) Portal vein thrombosis Code(s): I81 - PORTAL VEIN THROMBOSIS (4) HTN (hypertension) Code(s): I10 - ESSENTIAL (PRIMARY) HYPERTENSION Qualifiers: Hypertension type: essential hypertension Qualified Code(s): I10 - Essential (primary) hypertension (5) Hypercholesterolemia Code(s): E78.00 - PURE HYPERCHOLESTEROLEMIA, UNSPECIFIED Assessment/Plan 07/15/2018 [facility] shows nonobstructive CAD 50% prox LCx, luminal irregularities, elevated LVEDP 23 mmHg, LV gram c/w spade-like apical hypertrophic cardiomyopathy, 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 Plan for medical therapy with Toprol XL 25 qd, Lipitor 20 qd, ASA 81 qd 02/03/2019 Echo: Normal RV and LV size and fxn LVEF 60-65%, tr MR, TR 1. Acute portal vein thrombosis with SMV and splenic extension in setting of pancreatitis 2. CAD non-obstructive, angina, demand ischemia 3. HTN 4. Hypercholesterolemia 5. Apical hypertrophic cardiomyopathy PLAN: 1. Heparin gtt per PTT, eventual coumadin per INR, f/u abd/pelvic CTA and to decide on thrombectomy. Hypercoagulable work up including Protein C and S antigen and activity,, Factor V Leiden , Prothrombin gene rearrangement , anti- phospholipid ab's , homocysteine, Facor VIII activity, MADELEINE-1 gene mutation , lupus anticoag is warranted. 2. GI and Surgery input noted. Considering thrombectomy of portal vein thrombosis pending CTA 3. Continue Metoprolol 25 qd 4. Lipitor 80 qd as long as LFT remain normal 5. Zofran and analgesia PRN
--- NOTE | 2019-02-06 09:53 | PN ---
Physical Exam: SUBJECTIVE: Patient seen and examined OBJECTIVE: Vital Signs Period Temp Pulse Resp BP Sys/Cruz Pulse Ox Last 24 Hr 98.3 F-100.9 F 88-118 20-20 118-151/75-94 94 GENERAL: The patient is awake, alert, and fully oriented, in no acute distress. HEAD: Normal with no signs of trauma. EYES: PERRL, extraocular movements intact, sclera anicteric, conjunctiva clear. No ptosis. ENT: Ears normal, nares patent, oropharynx clear without exudates, moist mucous membranes. NECK: Trachea midline, full range of motion, supple. LUNGS: Breath sounds equal, clear to auscultation bilaterally, no wheezes, no crackles, no accessory muscle use. HEART: Regular rate and rhythm, S1, S2 without murmur, rub or gallop. ABDOMEN: Soft, nontender, nondistended, normoactive bowel sounds, no guarding, no rebound, no hepatosplenomegaly, no masses. EXTREMITIES: 2+ pulses, warm, well-perfused, no edema. NEUROLOGICAL: Cranial nerves II through XII grossly intact. Normal speech, gait not observed. PSYCH: Normal mood, normal affect. SKIN: Warm, dry, normal turgor, no rashes or lesions noted Laboratory Results - last 24 hr 02/05/19 02/05/19 02/05/19 11:20 15:15 18:00 WBC RBC Hgb Hct MCV MCH MCHC RDW Plt Count MPV Absolute Neuts (auto) Neutrophils % Lymphocytes % Monocytes % Eosinophils % Basophils % Nucleated RBC % PTT (Actin FS) 54.4 H Sodium Potassium Chloride Carbon Dioxide Anion Gap BUN Creatinine Est GFR (CKD-EPI)AfAm Est GFR (CKD-EPI)NonAf Random Glucose Lactic Acid 2.5 H* 1.7 Calcium Magnesium Total Bilirubin AST ALT Alkaline Phosphatase Total Protein Albumin 02/06/19 02/06/19 02/06/19 06:30 06:30 06:30 WBC 4.7 RBC 3.93 L Hgb 12.1 Hct 36.3 MCV 92.4 MCH 30.9 MCHC 33.5 RDW 12.3 Plt Count 197 MPV 9.3 Absolute Neuts (auto) 3.1 Neutrophils % 66.2 D Lymphocytes % 19.7 D Monocytes % 13.3 H D Eosinophils % 0.3 D Basophils % 0.5 Nucleated RBC % 0 PTT (Actin FS) 88.1 H Sodium 143 Potassium 4.0 Chloride 111 H Carbon Dioxide 24 Anion Gap 8 BUN 30 H Creatinine 1.2 Est GFR (CKD-EPI)AfAm 75.72 Est GFR (CKD-EPI)NonAf 65.33 Random Glucose 105 Lactic Acid Calcium 8.4 L Magnesium 2.2 Total Bilirubin 0.9 AST 53 H ALT 25 Alkaline Phosphatase 45 Total Protein 5.8 L Albumin 2.9 L Active Medications Generic Name Dose Route Start Last Admin Trade Name Freq PRN Reason Stop Dose Admin Albuterol Sulfate 1 amp 02/04/19 13:37 02/06/19 07:49 Ventolin 0.083% Nebulizer Soln - NEB 1 amp Q6H PRN Administration SHORT OF BREATH/WHEEZING Aspirin 81 mg 02/05/19 10:00 02/05/19 10:23 Asa - PO 81 mg DAILY [facility] Administration Atorvastatin Calcium 80 mg 02/04/19 22:00 02/05/19 22:07 Lipitor - PO 80 mg HS [facility] Administration Heparin Sodium (Porcine) 1,000 unit 02/04/19 15:13 02/05/19 10:32 Heparin - IVPUSH 1,000 unit PRN PRN Administration Heparin Heparin Sodium (Porcine) 5,000 unit 02/04/19 15:13 Heparin - IVPUSH PRN PRN Heparin Hydromorphone HCl 4 mg 02/06/19 08:22 Dilaudid Vial - IVPB Q4H PRN PAIN LEVEL 7 - 10 Dextrose/Lactated Ringer's 1,000 mls @ 100 mls/hr 02/04/19 15:13 02/06/19 05: 38 D5-Lr - IV 100 mls/hr ASDIR [facility] Administration HEPARIN SOD,PORK IN 0.45% NACL 25,000 units in 500 mls @ 20 mls/hr 02/04/19 15 :13 02/05/19 14:22 Heparin-1/2ns 25,000 Units/500 IVPB 850 units/hr TITR ELZA 17 mls/hr Administration Protocol 1,000 UNITS/HR Cefepime HCl 1 gm/ Dextrose 50 mls @ 100 mls/hr 02/05/19 19:15 02/06/19 01:22 IVPB 100 mls/hr Q8H-IV [facility] Administration Protocol Lidocaine 2 patch 02/06/19 10:00 Lidoderm Patch - TP DAILY [facility] Metoprolol Succinate 25 mg 02/05/19 10:00 02/05/19 10:23 Toprol Xl - PO 25 mg DAILY [facility] Administration Miscellaneous 1 each 02/06/19 22:00 Lidoderm Patch Removal MC DAILY@2200 [facility] Montelukast Sodium 10 mg 02/04/19 22:00 02/05/19 22:07 Singulair - PO 10 mg HS [facility] Administration Morphine Sulfate 4 mg 02/04/19 15:13 02/05/19 14:48 Morphine Sulfate IVPUSH 4 mg Q6H PRN Administration PAIN LEVEL 4 - 6 Ondansetron HCl 4 mg 02/04/19 15:13 02/04/19 19:54 Zofran Injection IVPUSH 4 mg Q6H PRN Administration NAUSEA Pantoprazole Sodium 40 mg 02/04/19 22:00 02/05/19 22:07 Protonix Iv IVPUSH 40 mg BID [facility] Administration ASSESSMENT/PLAN:
[2019-02-06] MEDS ORDERED: LIDOCAINE 5% TOPICAL PATCH TP SCH (10:00)
--- NOTE | 2019-02-06 10:04 | PN ---
Progress Note, Physician History of Present Illness: patient does not feel better at all still with lot of pain abd distension - Current Medication List Current Medications: Active Medications Albuterol Sulfate (Ventolin 0.083% Nebulizer Soln -) 1 amp NEB Q6H PRN PRN Reason: SHORT OF BREATH/WHEEZING Last Admin: 02/06/19 07:49 Dose: 1 amp Aspirin (Asa -) 81 mg PO DAILY [facility] Last Admin: 02/05/19 10:23 Dose: 81 mg Atorvastatin Calcium (Lipitor -) 80 mg PO HS [facility] Last Admin: 02/05/19 22:07 Dose: 80 mg Heparin Sodium (Porcine) (Heparin -) 1,000 unit IVPUSH PRN PRN PRN Reason: Heparin Last Admin: 02/05/19 10:32 Dose: 1,000 unit Heparin Sodium (Porcine) (Heparin -) 5,000 unit IVPUSH PRN PRN PRN Reason: Heparin Hydromorphone HCl (Dilaudid Vial -) 4 mg IVPB Q4H PRN PRN Reason: PAIN LEVEL 7 - 10 Dextrose/Lactated Ringer's (D5-Lr -) 1,000 mls @ 100 mls/hr IV ASDIR [facility] Last Admin: 02/06/19 05:38 Dose: 100 mls/hr HEPARIN SOD,PORK IN 0.45% NACL (Heparin-1/2ns 25,000 Units/500) 25,000 units in 500 mls @ 20 mls/hr IVPB TITR [facility]; Protocol Last Admin: 02/05/19 14:22 Dose: 850 units/hr, 17 mls/hr Cefepime HCl 1 gm/ Dextrose 50 mls @ 100 mls/hr IVPB Q8H-IV [facility]; Protocol Last Admin: 02/06/19 01:22 Dose: 100 mls/hr Lidocaine (Lidoderm Patch -) 2 patch TP DAILY [facility] Metoprolol Succinate (Toprol Xl -) 25 mg PO DAILY [facility] Last Admin: 02/05/19 10:23 Dose: 25 mg Miscellaneous (Lidoderm Patch Removal) 1 each MC DAILY@2200 [facility] Montelukast Sodium (Singulair -) 10 mg PO HS [facility] Last Admin: 02/05/19 22:07 Dose: 10 mg Morphine Sulfate (Morphine Sulfate) 4 mg IVPUSH Q6H PRN PRN Reason: PAIN LEVEL 4 - 6 Last Admin: 02/05/19 14:48 Dose: 4 mg Ondansetron HCl (Zofran Injection) 4 mg IVPUSH Q6H PRN PRN Reason: NAUSEA Last Admin: 02/04/19 19:54 Dose: 4 mg Pantoprazole Sodium (Protonix Iv) 40 mg IVPUSH BID [facility] Last Admin: 02/05/19 22:07 Dose: 40 mg - Objective Vital Signs: Vital Signs Temperature 98.3 F 02/06/19 05:47 Pulse Rate 88 02/06/19 05:47 Respiratory Rate 20 02/06/19 05:47 Blood Pressure 118/87 02/06/19 05:47 O2 Sat by Pulse Oximetry (%) 94 L 02/05/19 21:00 Constitutional: Yes: Anxious, Moderate Distress Cardiovascular: Yes: Tachycardia, Other Respiratory: Yes: Regular, CTA Bilaterally Gastrointestinal: Yes: Distention, Hypoactive Bowel Sounds, Tenderness Musculoskeletal: Yes: WNL Extremities: Yes: WNL Neurological: Yes: Alert, Oriented Psychiatric: Yes: Alert, Oriented Labs: CBC, BMP 02/06/19 06:30 02/06/19 06:30 INR, PTT INR 1.13 (0.83-1.09) H 02/04/19 07:17
[2019-02-06] MEDS: PANTOPRAZOLE SODIUM 40 MG VIAL IVPUSH SCH (10:13)
[2019-02-06] MEDS: metoPROLOL SUCCINATE 25 MG TAB.SR.24H (FP) PO SCH (10:14)
[2019-02-06] MEDS: ASPIRIN 81 MG CHEWABLE TABLETS PO SCH (10:14)
[2019-02-06] MEDS: ONDANSETRON 4 MG/2 ML VIAL IVPUSH PRN (10:17)
--- NOTE | 2019-02-06 11:21 | PN.GI ---
GI Progress Note Subjective: Patient still with abdominal pain. Receiving opiate analgesia No BM/Flatus as of yet CTA repeated yesterday revealed persistent thrombosis of SMV/portal vein and splenic vein - Objective Vital Signs: Vital Signs Temperature 98.3 F 02/06/19 05:47 Pulse Rate 88 02/06/19 05:47 Respiratory Rate 20 02/06/19 05:47 Blood Pressure 118/87 02/06/19 05:47 O2 Sat by Pulse Oximetry (%) 94 L 02/05/19 21:00 Constitutional: Calm Cardiovascular: Yes: Tachycardia, Pulse Irregular Respiratory: Yes: Rhonchi (at bases bilaterally), Tachypnea Gastrointestinal Inspection: No: Distention ...Auscultate: Yes: Normoactive Bowel Sounds ...Palpate: Yes: Guarding (still with guading, some improvement from my examination on sunday). No: Hepatomegaly ...Percussion: No: Tympanitic Edema: No (No LE edema) Neurological: Yes: Alert Labs: CBC, BMP 02/06/19 06:30 02/06/19 06:30 INR, PTT INR 1.13 (0.83-1.09) H 02/04/19 07:17 Laboratory Tests 02/04/19 02/05/19 02/05/19 07:17 11:20 18:00 Lactic Acid 2.5 H* 1.7 Tumor Marker AFP 2.1 Problem List - Problems (1) Portal vein thrombosis Assessment/Plan: Portomesenteric thrombosis: Clinically stable, still with abdominal pain requiring opiate analgesia For further guidance re: continued treatment, I spoke with Dr. Jacob Farfan, hepatobiliary surgeon at [facility] and discussed Mr. Lazaro's clinical course. Along with anticoagulation, he advised that due to portomesenteric nature of the thrombus, Mr. Lazaro would be at a higher risk for chronic complications of portal hypertension with just anticoagulation alone and recommended thrombolysis while the thrombus is still in the acute phase. He has accepted Mr. Lazaro for transfer to [facility]. I discussed this plan with Mr. Lazaro and he was in agreement for transfer. I discussed the plan with MARK Siegel. Disc will be provided with recent imaging studies. Continue A/C, supportive measures Monitor LFTs Incentive spirometry Code(s): I81 - PORTAL VEIN THROMBOSIS
--- NOTE | 2019-02-06 11:56 | PN ---
Progress Note, Physician History of Present Illness: Still with abdominal pain and distention without flatus or BM. No fevers recorded. PTT therapeutic. CTA repeated yesterday revealed persistent thrombosis of SMV/portal vein and splenic vein - Current Medication List Current Medications: Active Medications Albuterol Sulfate (Ventolin 0.083% Nebulizer Soln -) 1 amp NEB Q6H PRN PRN Reason: SHORT OF BREATH/WHEEZING Last Admin: 02/06/19 07:49 Dose: 1 amp Aspirin (Asa -) 81 mg PO DAILY [facility] Last Admin: 02/06/19 10:14 Dose: 81 mg Atorvastatin Calcium (Lipitor -) 80 mg PO HS [facility] Last Admin: 02/05/19 22:07 Dose: 80 mg Heparin Sodium (Porcine) (Heparin -) 1,000 unit IVPUSH PRN PRN PRN Reason: Heparin Last Admin: 02/05/19 10:32 Dose: 1,000 unit Heparin Sodium (Porcine) (Heparin -) 5,000 unit IVPUSH PRN PRN PRN Reason: Heparin Hydromorphone HCl (Dilaudid Vial -) 4 mg IVPB Q4H PRN PRN Reason: PAIN LEVEL 7 - 10 Last Admin: 02/06/19 11:10 Dose: 4 mg Dextrose/Lactated Ringer's (D5-Lr -) 1,000 mls @ 100 mls/hr IV ASDIR [facility] Last Admin: 02/06/19 05:38 Dose: 100 mls/hr Cefepime HCl 1 gm/ Dextrose 50 mls @ 100 mls/hr IVPB Q8H-IV [facility]; Protocol Last Admin: 02/06/19 10:13 Dose: 100 mls/hr HEPARIN SOD,PORK IN 0.45% NACL (Heparin-1/2ns 25,000 Units/500) 25,000 units in 500 mls @ 20 mls/hr IVPB TITR [facility]ZA; Protocol Lidocaine (Lidoderm Patch -) 2 patch TP DAILY [facility] Last Admin: 02/06/19 10:09 Dose: 2 patch Metoprolol Succinate (Toprol Xl -) 25 mg PO DAILY [facility] Last Admin: 02/06/19 10:14 Dose: 25 mg Miscellaneous (Lidoderm Patch Removal) 1 each MC DAILY@2200 [facility] Montelukast Sodium (Singulair -) 10 mg PO HS [facility] Last Admin: 02/05/19 22:07 Dose: 10 mg Morphine Sulfate (Morphine Sulfate) 4 mg IVPUSH Q6H PRN PRN Reason: PAIN LEVEL 4 - 6 Last Admin: 02/05/19 14:48 Dose: 4 mg Ondansetron HCl (Zofran Injection) 4 mg IVPUSH Q6H PRN PRN Reason: NAUSEA Last Admin: 02/06/19 10:17 Dose: 4 mg Pantoprazole Sodium (Protonix Iv) 40 mg IVPUSH BID [facility] Last Admin: 02/06/19 10:13 Dose: 40 mg - Objective Vital Signs: Vital Signs Temperature 98.3 F 02/06/19 05:47 Pulse Rate 88 02/06/19 05:47 Respiratory Rate 20 02/06/19 05:47 Blood Pressure 118/87 02/06/19 05:47 O2 Sat by Pulse Oximetry (%) 94 L 02/05/19 21:00 Constitutional: Yes: No Distress, Calm, Thin Neck: Yes: Supple Cardiovascular: Yes: Regular Rate and Rhythm Respiratory: Yes: Regular, CTA Bilaterally Gastrointestinal: Yes: Distention, Hypoactive Bowel Sounds, Tenderness Edema: No Labs: CBC, BMP 02/06/19 06:30 02/06/19 06:30 INR, PTT INR 1.13 (0.83-1.09) H 02/04/19 07:17 Problem List - Problems (1) Apical variant hypertrophic cardiomyopathy Code(s): I42.2 - OTHER HYPERTROPHIC CARDIOMYOPATHY (2) Pancreatitis Code(s): K85.90 - ACUTE PANCREATITIS WITHOUT NECROSIS OR INFECTION, UNSP Qualifiers: Chronicity: acute (3) Portal vein thrombosis Code(s): I81 - PORTAL VEIN THROMBOSIS (4) HTN (hypertension) Code(s): I10 - ESSENTIAL (PRIMARY) HYPERTENSION Qualifiers: Hypertension type: essential hypertension Qualified Code(s): I10 - Essential (primary) hypertension (5) Hypercholesterolemia Code(s): E78.00 - PURE HYPERCHOLESTEROLEMIA, UNSPECIFIED Assessment/Plan 07/15/2018 [facility] shows nonobstructive CAD 50% prox LCx, luminal irregularities, elevated LVEDP 23 mmHg, LV gram c/w spade-like apical hypertrophic cardiomyopathy, 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 Plan for medical therapy with Toprol XL 25 qd, Lipitor 20 qd, ASA 81 qd 02/03/2019 Echo: Normal RV and LV size and fxn LVEF 60-65%, tr MR, TR 1. Acute portal vein thrombosis with SMV and splenic extension in setting of pancreatitis 2. CAD non-obstructive, angina, demand ischemia 3. HTN 4. Hypercholesterolemia 5. Apical hypertrophic cardiomyopathy PLAN: 1. Heparin gtt per PTT, eventual coumadin per INR, abd/pelvic CTA confirms persistence of portomesenteric venous thrombosis and is planned for mesenteric thrombolysis per Dr. Jacob Farfan, hepatobiliary surgeon at [facility]. Hypercoagulable work up including Protein C and S antigen and activity,, Factor V Leiden , Prothrombin gene rearrangement , anti-phospholipid ab's , homocysteine, Facor VIII activity, MADELEINE-1 gene mutation , lupus anticoag is warranted. 2. Continue Metoprolol XL 25 qd 3. ASA 81 qd, Lipitor 80 qd as long as LFT remain normal 4. Zofran and analgesia PRN
--- NOTE | 2019-02-06 12:44 | PN ---
Physical Exam: SUBJECTIVE: Patient seen and examined at the bedside. still having abdominal discomfort and pain. worse at night. assured him that we will uptitirate his medications and continue to manage his pain. OBJECTIVE: ekg overnight showed sinus tachycardia. ekg done today shows afib with rapid avr 177. cardizem PO ordered by dr soliman, patient transfered to telemonitoring for closer monitor of heart rate and for IV cardizem. patient denies any past palpitations or afib. after transfer to the 4th floor, patient was noted to be back in sinus rhythm per floor registered nurse cardiac telemetry. discussed with IR, patient will need a thrombectomy, but will need to be therapeutic on heparin drip. parameters of heparin drip changed to relfect therapeutic rate between 60-80 aptt Patient now accepted to [facility], but awaiting a telemonitoring bed. Vital Signs Period Temp Pulse Resp BP Sys/Cruz Pulse Ox Last 24 Hr 98.3 F-100.9 F 88-118 20-20 118-151/75-94 94 GENERAL: The patient is awake, alert, and fully oriented, in no acute distress. has mild abdominal and back pain. HEAD: Normal with no signs of trauma. EYES: PERRL, extraocular movements intact, sclera anicteric, conjunctiva clear. No ptosis. ENT: Ears normal, nares patent, oropharynx clear without exudates, moist mucous membranes. NECK: Trachea midline, full range of motion, supple. LUNGS: rales at the bases. encouraged spriometer use. on 2 liters nasal cannula. HEART: afib with rvr per ekg. registered nurse cardiac telemetry sinus tachycardia 101. ABDOMEN: Soft, tender, mildly distended, hypoactive bowel sounds EXTREMITIES: no edema. NEUROLOGICAL: Normal speech, gait steady PSYCH: Normal mood, normal affect. SKIN: Warm, dry, normal turgor, no rashes or lesions noted Laboratory Results - last 24 hr 02/05/19 02/05/19 02/05/19 11:20 15:15 18:00 WBC RBC Hgb Hct MCV MCH MCHC RDW Plt Count MPV Absolute Neuts (auto) Neutrophils % Lymphocytes % Monocytes % Eosinophils % Basophils % Nucleated RBC % PTT (Actin FS) 54.4 H Sodium Potassium Chloride Carbon Dioxide Anion Gap BUN Creatinine Est GFR (CKD-EPI)AfAm Est GFR (CKD-EPI)NonAf Random Glucose Lactic Acid 2.5 H* 1.7 Calcium Magnesium Total Bilirubin AST ALT Alkaline Phosphatase Total Protein Albumin 02/06/19 02/06/19 02/06/19 06:30 06:30 06:30 WBC 4.7 RBC 3.93 L Hgb 12.1 Hct 36.3 MCV 92.4 MCH 30.9 MCHC 33.5 RDW 12.3 Plt Count 197 MPV 9.3 Absolute Neuts (auto) 3.1 Neutrophils % 66.2 D Lymphocytes % 19.7 D Monocytes % 13.3 H D Eosinophils % 0.3 D Basophils % 0.5 Nucleated RBC % 0 PTT (Actin FS) 88.1 H Sodium 143 Potassium 4.0 Chloride 111 H Carbon Dioxide 24 Anion Gap 8 BUN 30 H Creatinine 1.2 Est GFR (CKD-EPI)AfAm 75.72 Est GFR (CKD-EPI)NonAf 65.33 Random Glucose 105 Lactic Acid Calcium 8.4 L Magnesium 2.2 Total Bilirubin 0.9 AST 53 H ALT 25 Alkaline Phosphatase 45 Total Protein 5.8 L Albumin 2.9 L Active Medications Generic Name Dose Route Start Last Admin Trade Name Freq PRN Reason Stop Dose Admin Albuterol Sulfate 1 amp 02/04/19 13:37 02/06/19 07:49 Ventolin 0.083% Nebulizer Soln - NEB 1 amp Q6H PRN Administration SHORT OF BREATH/WHEEZING Aspirin 81 mg 02/05/19 10:00 02/06/19 10:14 Asa - PO 81 mg DAILY ELZA Administration Atorvastatin Calcium 80 mg 02/04/19 22:00 02/05/19 22:07 Lipitor - PO 80 mg HS ELZA Administration Diltiazem HCl 30 mg 02/06/19 12:45 Cardizem - PO 02/06/19 12:46 ONCE ONE Heparin Sodium (Porcine) 1,000 unit 02/04/19 15:13 02/05/19 10:32 Heparin - IVPUSH 1,000 unit PRN PRN Administration Heparin Heparin Sodium (Porcine) 5,000 unit 02/04/19 15:13 Heparin - IVPUSH PRN PRN Heparin Hydromorphone HCl 4 mg 02/06/19 08:22 02/06/19 11:10 Dilaudid Vial - IVPB 4 mg Q4H PRN Administration PAIN LEVEL 7 - 10 Dextrose/Lactated Ringer's 1,000 mls @ 100 mls/hr 02/04/19 15:13 02/06/19 05: 38 D5-Lr - IV 100 mls/hr ASDIR ELZA Administration Cefepime HCl 1 gm/ Dextrose 50 mls @ 100 mls/hr 02/05/19 19:15 02/06/19 10:13 IVPB 100 mls/hr Q8H-IV ELZA Administration Protocol HEPARIN SOD,PORK IN 0.45% NACL 25,000 units in 500 mls @ 20 mls/hr 02/06/19 10 :36 Heparin-1/2ns 25,000 Units/500 IVPB TITR ELZA Protocol 1,000 UNITS/HR Lidocaine 2 patch 02/06/19 10:00 02/06/19 10:09 Lidoderm Patch - TP 2 patch DAILY ELZA Administration Metoprolol Succinate 25 mg 02/05/19 10:00 02/06/19 10:14 Toprol Xl - PO 25 mg DAILY ELZA Administration Miscellaneous 1 each 02/06/19 22:00 Lidoderm Patch Removal MC DAILY@2200 ELZA Montelukast Sodium 10 mg 02/04/19 22:00 02/05/19 22:07 Singulair - PO 10 mg HS ELZA Administration Morphine Sulfate 4 mg 02/04/19 15:13 02/05/19 14:48 Morphine Sulfate IVPUSH 4 mg Q6H PRN Administration PAIN LEVEL 4 - 6 Ondansetron HCl 4 mg 02/04/19 15:13 02/06/19 10:17 Zofran Injection IVPUSH 4 mg Q6H PRN Administration NAUSEA Pantoprazole Sodium 40 mg 02/04/19 22:00 02/06/19 10:13 Protonix Iv IVPUSH 40 mg BID ELZA Administration ASSESSMENT/PLAN: Patient is a 58 year old male with a past medical history of hypertension, dyslipidemia, non obstructive CAD s/p NSTEMI, s/p cath on 07/15/2019 at [facility]. Patient presents to the ED on 02/03/19 with c/o epigastric pain, non radiating associated with mild nausea, no vomiting or diarrhea. Pain worsened and he had a contrast CT abdomen and pelvis which showed portal vein thrombosis with SMV and splenic extension. 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 now therapeutic on a Heparin drip. parameters changed to maintain aptt at a therepeutic range between 60-80. For intervention with IR for possible thrombectomy. Patient to be transfered to [facility] for further workup. will also undergo a hypercoagulable workup. ID: Lactic acidosis, resolved with IVF. On 02/05/19 started on emperic cefepime per ID. ID following for parasite workup. Card: Atrial fibrilation per ekg, convered to sinus tachycardia per registered nurse cardiac telemetry on [facility]. Given Cardizem 30mg PO x 1. heart rate controlled currently. on cardizem 10mg prn pushes prn to maintain heart rate <110. Demand ischemia/elevated troponins. followed by cardiology. Hypertension: on metoprolol. monitor bp, given additional dose of metoprolol for tachycardia. Hypercholesterolemia: started on statin therapy Pulm: On Singulair and albuterol prn Renal Renal function stable. monitor kidney function. fen on d5, LR @ 100 NPO prophy On heparin drip to maintain aptt between 60-80. disposition: full code. Dr. Chu Holloway. surgical step down. and Dr. Ramos are accepting physicians at [facility]. transfer paperwork has been filled out and in chart. Visit type - Emergency Visit Emergency Visit: Yes ED Registration Date: 02/03/19 Care time: The patient presented to the Emergency Department on the above date and was hospitalized for further evaluation of their emergent condition. - New Patient This patient is new to me today: No - Critical Care Critical Care patient: No - Discharge Referral Referred to [facility] No
[2019-02-06] MEDS ORDERED: dilTIAZem HCL 30 MG TABLET (FP) PO ONE (12:45)
[2019-02-06] MEDS ORDERED: dilTIAZem HCL 50 MG/10 ML - 10 ML VIAL IVPUSH PRN (13:14)
[2019-02-06] MEDS ORDERED: dilTIAZem HCL 25 MG/5 ML - 5 ML VIAL IVPUSH PRN (13:24)
[2019-02-06] MEDS: HEPARIN SOD,PORK IN 0.45% NACL 25,000 UNITS/500 ML INFUS.BAG IVPB SCH ×2 (13:24→17:26)
--- NOTE | 2019-02-06 13:38 | EKG ---
Test Reason : Blood Pressure : / mmHG Vent. Rate : 177 BPM Atrial Rate : 192 BPM P-R Int : 000 ms QRS Dur : 078 ms QT Int : 242 ms P-R-T Axes : 000 -08 169 degrees QTc Int : 415 ms ATRIAL FIBRILLATION WITH RAPID VENTRICULAR RESPONSE LEFT VENTRICULAR HYPERTROPHY WITH REPOLARIZATION ABNORMALITY ABNORMAL ECG WHEN COMPARED WITH ECG OF 05-FEB-2019 18:25, ATRIAL FIBRILLATION HAS REPLACED SINUS RHYTHM Confirmed by JENN MAYA, ER ([id number]) on 02/06/2019 1:37:28 PM Referred By: Confirmed By:RE BARAJAS MD
[2019-02-06] MEDS ORDERED: PT OWN MED DRAWER 7, Y5N ONE ×3 (14:20→15:13)
--- NOTE | 2019-02-06 14:26 | EKG ---
Test Reason : Blood Pressure : / mmHG Vent. Rate : 122 BPM Atrial Rate : 122 BPM P-R Int : 118 ms QRS Dur : 084 ms QT Int : 334 ms P-R-T Axes : 055 001 171 degrees QTc Int : 475 ms SINUS TACHYCARDIA POSSIBLE LEFT ATRIAL ENLARGEMENT LEFT VENTRICULAR HYPERTROPHY WITH REPOLARIZATION ABNORMALITY ABNORMAL ECG WHEN COMPARED WITH ECG OF 05-FEB-2019 18:25, NO SIGNIFICANT CHANGE WAS FOUND Confirmed by EDWINA MAYA, KERRY ([id number]) on 02/06/2019 2:25:56 PM Referred By: Jw ABY Confirmed By:KERRY BLAND MD
--- NOTE | 2019-02-06 14:27 | DS ---
Physical Exam: SUBJECTIVE: Patient seen and examined at the bedside. OBJECTIVE: ekg overnight showed sinus tachycardia. ekg done today shows afib with rapid avr 177. cardizem PO ordered by dr soliman, patient transfered to telemonitoring for closer monitor of heart rate and for IV cardizem. patient denies any past palpitations or afib. after transfer to the 4th floor, patient was noted to be back in sinus rhythm per floor color television console monitor. discussed with IR, patient will need a thrombectomy, but will need to be therapeutic on heparin drip. parameters of heparin drip changed to relfect therapeutic rate between 60-80 aptt Patient now accepted to [facility], but awaiting a telemonitoring bed. Vital Signs Period Temp Pulse Resp BP Sys/Cruz Pulse Ox Last 24 Hr 98.3 F-100.9 F 88-118 20-20 118-146/75-89 94 PHYSICAL EXAM GENERAL: The patient is awake, alert, and fully oriented, in no acute distress. has mild abdominal and back pain. HEAD: Normal with no signs of trauma. EYES: PERRL, extraocular movements intact, sclera anicteric, conjunctiva clear. No ptosis. ENT: Ears normal, nares patent, oropharynx clear without exudates, moist mucous membranes. NECK: Trachea midline, full range of motion, supple. LUNGS: rales at the bases. encouraged spriometer use. on 2 liters nasal cannula. HEART: afib with rvr per ekg. color television console monitor sinus tachycardia 101. ABDOMEN: Soft, tender, mildly distended, hypoactive bowel sounds EXTREMITIES: no edema. NEUROLOGICAL: Normal speech, gait steady PSYCH: Normal mood, normal affect. SKIN: Warm, dry, normal turgor, no rashes or lesions noted LABS Laboratory Results - last 24 hr 02/05/19 02/05/19 02/06/19 15:15 18:00 06:30 WBC RBC Hgb Hct MCV MCH MCHC RDW Plt Count MPV Absolute Neuts (auto) Neutrophils % Lymphocytes % Monocytes % Eosinophils % Basophils % Nucleated RBC % PTT (Actin FS) 54.4 H 88.1 H Sodium Potassium Chloride Carbon Dioxide Anion Gap BUN Creatinine Est GFR (CKD-EPI)AfAm Est GFR (CKD-EPI)NonAf Random Glucose Lactic Acid 1.7 Calcium Magnesium Total Bilirubin AST ALT Alkaline Phosphatase Total Protein Albumin 02/06/19 02/06/19 06:30 06:30 WBC 4.7 RBC 3.93 L Hgb 12.1 Hct 36.3 MCV 92.4 MCH 30.9 MCHC 33.5 RDW 12.3 Plt Count 197 MPV 9.3 Absolute Neuts (auto) 3.1 Neutrophils % 66.2 D Lymphocytes % 19.7 D Monocytes % 13.3 H D Eosinophils % 0.3 D Basophils % 0.5 Nucleated RBC % 0 PTT (Actin FS) Sodium 143 Potassium 4.0 Chloride 111 H Carbon Dioxide 24 Anion Gap 8 BUN 30 H Creatinine 1.2 Est GFR (CKD-EPI)AfAm 75.72 Est GFR (CKD-EPI)NonAf 65.33 Random Glucose 105 Lactic Acid Calcium 8.4 L Magnesium 2.2 Total Bilirubin 0.9 AST 53 H ALT 25 Alkaline Phosphatase 45 Total Protein 5.8 L Albumin 2.9 L HOSPITAL COURSE: Date of Admission:02/03/19 Date of Discharge: 02/06/19 ASSESSMENT/PLAN: Patient is a 58 year old male with a past medical history of hypertension, dyslipidemia, non obstructive CAD s/p NSTEMI, s/p cath on 07/15/2019 at [facility]. Patient presents to the ED on 02/03/19 with c/o epigastric pain, non radiating associated with mild nausea, no vomiting or diarrhea. Pain worsened and he had a contrast CT abdomen and pelvis which showed portal vein thrombosis with SMV and splenic extension. 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 now therapeutic on a Heparin drip. parameters changed to maintain aptt at a therepeutic range between 60-80. For intervention with IR for possible thrombectomy. Patient to be transfered to [facility] for further workup. will also undergo a hypercoagulable workup. ID: Lactic acidosis, resolved with IVF. On 02/05/19 started on emperic cefepime per ID. ID following for parasite workup. Card: Atrial fibrilation per ekg, convered to sinus tachycardia per color television console monitor on [facility]. Given Cardizem 30mg PO x 1. heart rate controlled currently. on cardizem 10mg prn pushes prn to maintain heart rate <110. Demand ischemia/elevated troponins. followed by cardiology. Hypertension: on metoprolol. monitor bp, given additional dose of metoprolol for tachycardia. Hypercholesterolemia: started on statin therapy Pulm: On Singulair and albuterol prn Renal Renal function stable. monitor kidney function. fen on d5 ns @ 100 NPO prophy On heparin drip to maintain aptt between 60-80. disposition: full code. Dr. Chu Holloway. surgical step down. and Dr. Ramos are accepting physicians at [facility]. transfer paperwork has been filled out and in chart. Minutes to complete discharge: 60 Discharge Summary Reason For Visit: NON-ST ELEVATION MYOCARDIAL INFARCTION/PANCREATITI Current Active Problems Abnormal EKG (Acute) Apical variant hypertrophic cardiomyopathy (Acute) Elevated troponin I level (Acute) Generalized abdominal pain (Acute) Hypercholesteremia (Acute) Lumbar radiculopathy (Acute) NSTEMI (non-ST elevated myocardial infarction) (Acute) Pancreatitis (Acute) Portal vein thrombosis (Acute) Seasonal allergic reaction (Acute) Thrombophilia (Acute) Condition: Worsened - Instructions Diet, Activity, Other Instructions: TRANSFER TO [facility] Disposition: TRANSFER ACUTE CARE/OTHER HOSP - Home Medications Comprehensive Discharge Medication List: Ambulatory Orders Montelukast Sodium [Singulair] 10 mg PO HS 07/14/18 Aspirin [ASA -] 81 mg PO DAILY 02/01/19 Metoprolol Tartrate [Lopressor -] 25 mg PO DAILY 02/01/19 This patient is new to me today: No Emergency Visit: Yes ED Registration Date: 02/03/19 Care time: The patient presented to the Emergency Department on the above date and was hospitalized for further evaluation of their emergent condition. Critical Care patient: No - Discharge Referral Referred to [facility] No
[2019-02-06 14:44] VITALS: BP 132/84; PULSE 101
[2019-02-06] MEDS ORDERED: LIDOCAINE PATCH REMOVAL MC SCH (22:00)
[2019-02-06] MEDS ORDERED: METOPROLOL TARTRATE 25 MG TABLET (FP) PO SCH (22:00)
[2019-02-07 02:10] LABS: DRVVT - 41.7 sec (0.0-47.0)
== END 2019-02-06 18:10 | disposition short-term general hospital (02) | DRG 279 ==
LOC: JER 04:39 → JERBED 09:03 → J4W 13:36 → OBSVTOIN 02-03 15:37 → JICU 02-04 01:15 → J7W 02-04 16:00 → J4W 02-06 13:57
PROVIDERS: ADMIT Internal Medicine; ATTEND Nurse Practitioner Family
DX: I81 Portal vein thrombosis (principal); I21.4 Non-ST elevation (NSTEMI) myocardial infarction; K85.90 Acute pancreatitis without necrosis or infection, unspecified; I42.2 Other hypertrophic cardiomyopathy; D73.5 Infarction of spleen; E87.2 Acidosis; I25.2 Old myocardial infarction; K76.89 Other specified diseases of liver; K76.0 Fatty (change of) liver, not elsewhere classified; I25.10 Atherosclerotic heart disease of native coronary artery without angina pectoris; I10 Essential (primary) hypertension; E78.5 Hyperlipidemia, unspecified; M54.16 Radiculopathy, lumbar region; J30.2 Other seasonal allergic rhinitis; K44.9 Diaphragmatic hernia without obstruction or gangrene
CPT/HCPCS: 36415; 74174-TC; 74176-TC; 74177-TC; 76705-TC; 80048; 80053; 80061; 80076; 81241; 82105; 82550; 82553; 83605; 83690; 83721; 83735; 84100; 84484; 85025; 85027; 85303; 85306; 85610; 85613; 85651; 85670; 85730; 85732; 93005; 93010; 93306-TC; 94010; 94640; 99285-25; G0378; J0131; J1644; J7030

== ENCOUNTER 2019-10-11 21:11 | Inpatient (IN) | payer OTHER ==
--- NOTE | 2019-10-11 21:31 | PDOC ---
History of Present Illness - General Chief Complaint: Chest Pain Stated Complaint: CHEST PAIN Time Seen by Provider: 10/11/19 21:30 History Source: Patient Exam Limitations: No Limitations - History of Present Illness Initial Comments: 10/11/19 21:31 Jadon Lazaro is a 59M with PMH HTN, HLD, CAD s/p NSTEMI (w/cath 07/15/2019 with CAD 50% proximal left circumflex, luminal irregularities, and LV gram consistent with spade-like apical hypertrophic cardiomyopathy), AFIB, presenting with chest pain and left leg pain. Patient reports that today he started having deep left calf pain that radiated upwards to the lower back, only on the left. Says it is consistent with prior sciatica pain he was treated for at [facility] and took meloxicam for, denies numbness/tingling or inability to walk, denies LE swelling. 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 Similar to pain when he had a heart attack 2 years ago. Has history of mesenteric ischemia last year, has hx AFIB on metoprolol and Eliquis. No abdominal pain today. Patient reports daily medication compliance, including ASA and Eliquis. Denies bloody or dark stools. Environmental Health Officer is Dr. Barney, did cath last year without occlusive findings. Currently leg pain and palpitations have resolved, still having chest pain. Denies SOB, dizziness, weakness, urinary sx, diarrhea. Past History - Past Medical History Allergies/Adverse Reactions: Allergies Allergy/AdvReac Type Severity Reaction Status Date / Time latex Allergy Verified 10/11/19 21:24 adhesive tape AdvReac Verified 10/11/19 21:24 Home Medications: Ambulatory Orders Montelukast Sodium [Singulair] 10 mg PO HS 07/14/18 Aspirin [ASA -] 81 mg PO DAILY 02/01/19 Metoprolol Tartrate [Lopressor -] 25 mg PO DAILY 02/01/19 Cardiac Disorders: Yes (mild [place], PCI) COPD: No HTN: Yes Hypercholesterolemia: Yes - Surgical History Cardiac Surgery: Yes (PCI) - Immunization History Immunization Up to Date: Yes - Psycho Social/Smoking Cessation Hx Smoking History: Never smoked Have you smoked in the past 12 months: No Hx Alcohol Use: No (Social last was few days ago) Drug/Substance Use Hx: No Substance Use Type: None Review of Systems - Review of Systems Able to Perform ROS?: Yes Constitutional: No: Chills, Fever, Weakness HEENTM: No: Symptoms Reported Respiratory: No: Cough, Shortness of Breath, Productive cough Cardiac (ROS): Yes: Chest Pain. No: Edema ABD/GI: No: Constipated, Diarrhea, Nausea, Poor Appetite, Poor Fluid Intake, Vomiting, Tarry Stools : No: Symptoms Reported Musculoskeletal: No: Symptoms Reported Integumentary: No: Symptoms Reported Neurological: No: Symptoms reported Endocrine: No: Symptoms Reported Hematologic/Lymphatic: Yes: Blood Clots All Other Systems: Reviewed and Negative *Physical Exam - Vital Signs Last Vital Signs Temp Pulse Resp BP Pulse Ox 97.3 F L 102 H 18 132/86 97 10/11/19 21:22 10/11/19 21:22 10/11/19 21:22 10/11/19 21:22 10/11/19 21:22 - Physical Exam General Appearance: Yes: Nourished, Appropriately Dressed. No: Apparent Distress HEENT: positive: EOMI, SHARON, Normal ENT Inspection, Normal Voice, Symmetrical, Hearing Grossly Normal. negative: Scleral Icterus (R), Scleral Icterus (L) Neck: positive: Trachea midline, Normal Thyroid, Supple. negative: Tender, Rigid, Lymphadenopathy (R), Lymphadenopathy (L) Respiratory/Chest: positive: Chest Tender, Lungs Clear, Normal Breath Sounds. negative: Respiratory Distress, Accessory Muscle Use, Crackles, Rales, Rhonchi, Stridor, Wheezing Cardiovascular: positive: Regular Rhythm, Tachycardia. negative: Murmur Gastrointestinal/Abdominal: positive: Normal Bowel Sounds, Flat, Soft. negative : Tender, Organomegaly, Pulsatile Mass, Guarding, Rebound Musculoskeletal: positive: Normal Inspection. negative: CVA Tenderness Extremity: positive: Normal Capillary Refill, Normal Inspection, Normal Range of Motion, Pelvis Stable, Other (LLE: no bony deformity or ecchymosis, no edema , sensation intact to LT at toes, DP pulse intact, full ROM all joints.). negative: Tender, Pedal Edema, Swelling, Calf Tenderness (non-tender to deep palpation) Integumentary: positive: Normal Color, Dry, Warm Neurologic: positive: Fully Oriented, Alert, Normal Mood/Affect, Normal Response , Other (able to stand and walk without issues). negative: Numbness, Sensory Deficit ED Treatment Course - LABORATORY CBC & Chemistry Diagram: 10/11/19 22:16 10/11/19 22:16 Medical Decision Making - Medical Decision Making 10/11/19 22:46 Jadon Lazaro is a 59M with PMH STEMI, CAD, mesenteric ischemia presenting with leg and chest pain while at rest. Patient's chest pain immediately concerning for [place]. Initial ECG shows sinus tachycardia with HR 103, QRS 84, QTc 466, with TWI in V1-V5 consistent with prior ECG, no obvious ischemic changes. Still concerning for NSTEMI and PE given tachycardia, LLE pain, known history of clots and AFIB. - CMP/CBC for electrolyte/infectious etiology - CP for trop eval for NSTEMI, chart review shows last trop baseline at [facility] at 0.31 leak - ECG order and described as above - CXR for eval heart/lungs/aorta - Duplex BLE for eval DVT - Low threshold to CTA pending Cr and trop - Giving 324 ASA for possible ACS 10/11/19 23:04 Labs notable for: - CBC WNL - Coags WNL - UA WNL - trop 0.28, last 0.31 seven months ago - BNP 252.7 - CK-MB 3.9 Consulting cardiology for eval. HEART Score 8, requires admission for high risk cardiac given concerning cardiac history. 10/12/19 00:[address] Urbina in lieu of Dr. Barney. Recommends CTA given came in tachycardic, although now HR 67, but still having chest pain, worth the evaluation. Recommends nitro paste for chest pain relief. Will see in the morning, needs ACS cardiac evaluation. Spoke to Vish with admitting team, will admit to tele/obs for further evaluation under Dr. Poe. Discharge - Discharge Information Problems reviewed: Yes Clinical Impression/Diagnosis: Leg pain, left Chest pain Qualifiers: Chest pain type: unspecified Qualified Code(s): R07.9 - Chest pain, unspecified Condition: Stable - Admission Yes - Follow up/Referral Referrals: Ceasar Serrano MD [Primary Care Provider] - - Patient Discharge Instructions - Post Discharge Activity
[2019-10-11] MEDS ORDERED: ASPIRIN 81 MG CHEWABLE TABLETS PO ONE (22:07)
[2019-10-11] MEDS ORDERED: ASPIRIN 81 MG CHEWABLE TABLETS ONE (22:22)
[2019-10-11 22:37] LABS: BASO % 0.8 % (0-2.0); EOS % 3.7 % (0-4.5); HEMATOCRIT 43.9 % (35.4-49); HEMOGLOBIN 14.9 GM/dL (11.7-16.9); LYMPH % 41.2 % (8-40); MCH 31.2 pg (25.7-33.7); MEAN CELL VOLUME 91.9 fl (80-96); MEAN PLT VOLUME 9.9 fl (7.5-11.1); MONO % 9.2 % (3.8-10.2); NEUT % 45.1 % (42.8-82.8); PLATELET COUNT 149 K/MM3 (134-434); RBC 4.77 M/mm3 (4.00-5.60); RDW 12.4 % (11.9-15.9); WHITE BLOOD COUNT 5.1 K/mm3 (4.0-10.0)
[2019-10-11 22:51] LABS: INR 1.22 (0.83-1.09); PROTHROMBIN TIME (PATIENT) 14.4 SEC (9.7-13.0); URINE APPEARANCE CLEAR; URINE BILIRUBIN NEGATIVE (NEGATIVE); URINE COLOR YELLOW; URINE GLUCOSE (UA) NEGATIVE (NEGATIVE); URINE KETONE NEGATIVE (NEGATIVE); URINE LEUK ESTERASE NEGATIVE (NEGATIVE); URINE NITRITE NEGATIVE (NEGATIVE); URINE PROTEIN NEGATIVE (NEGATIVE)
[2019-10-11 22:54] LABS: ACTIVATED PTT 34.9 SECONDS (25.2-36.5)
[2019-10-11 23:04] LABS: MAGNESIUM 2.1 mg/dL (1.8-2.4); N-TERMINAL BNP 252.7 pg/ml (5-125)
[2019-10-11 23:09] LABS: ALBUMIN 4.1 g/dl (3.4-5.0); BILIRUBIN,TOTAL 0.6 mg/dL (0.2-1); BLOOD UREA NITROGEN 12.4 mg/dL (7-18); CALCIUM 8.9 mg/dL (8.5-10.1); CREATININE 1.2 mg/dL (0.55-1.3); POTASSIUM 3.8 mmol/L (3.5-5.1); TOT PROT 7.6 g/dl (6.4-8.2)
[2019-10-12] MEDS ORDERED: NITROGLYCERIN 2% OINTMENT - 1GM PACKET TD ONE ×2 (00:50→01:24)
--- NOTE | 2019-10-12 00:51 | PN ---
Teaching Attending Note Name of Resident: Lily Campos ATTENDING PHYSICIAN STATEMENT I saw and evaluated the patient. I reviewed the resident's note and discussed the case with the resident. I agree with the resident's findings and plan as documented. SUBJECTIVE: Patient is a 59 year old man with a PMH of HTN, HLD, Protein S deficiency, Mesenteric ischemia, CAD s/p NSTEMI (cardiac catheterization 07/15/2019 with CAD 50% proximal left circumflex) and Afib (on Eliquis) presenting with chest pain and left leg pain for 1 day. He reports deep left calf pain that radiated upwards to the lower back, only on the left. Says it is consistent with prior sciatica pain he was treated for at [place]. He denies numbness, leg swelling, tingling or inability to walk. Two hours before arrival patient was standing and washing dishes when he began to have a pressure-like chest pain in the middle of his chest. Pain is non-radiating, no back pain, associated with palpitations and no nausea or vomiting. Pain similar to pain when he had a heart attack 2 years ago. Patient takes ASA and Eliquis daily. Denies bloody or dark stools, SOB, dizziness, weakness, urinary symptoms or diarrhea. Currently leg pain and palpitations have resolved, still having chest pain. Denies alcohol , tobacco or illicit drug use. No sick contacts or recent travels. Had negative cardiac stress test in May 2019. Has FH of [place] and DM. OBJECTIVE: Alert Vital Signs Period Temp Pulse Resp BP Sys/Cruz Pulse Ox Last 24 Hr 97.3 F 102 18 132/86 97 HEENT: No Jaundice, eye redness or discharge, PERRLA, EOMI. Normocephalic, atraumatic. External ears are normal and hearing is grossly intact. No nasal discharge. Neck: Supple, nontender. No palpable adenopathy or thyromegaly. No JVD Chest: Good effort. Clear to auscultation and percussion. Heart: Regular. No S3, rub or murmur Abdomen: Not distended, soft, nontender and no HSM. No rebound or guarding. Normal bowel sounds. Ext: Peripheral pulses intact. No leg edema. Skin: Warm and dry. No petechiae, rash or ecchymosis. Neuro: Alert. Oriented x3. CN 2-12 grossly intact. Sensation grossly intact in all four extremities and DTR are symmetric. Psych: Appropriate mood and affect. Good insight. Home Medications Medication Instructions Recorded Montelukast Sodium [Singulair] 10 mg PO HS 07/14/18 Aspirin [ASA -] 81 mg PO DAILY 02/01/19 Metoprolol Tartrate [Lopressor -] 25 mg PO DAILY 02/01/19 Abnormal Lab Results 10/11/19 10/11/19 10/11/19 22:16 22:16 22:16 Lymphocytes % 41.2 H D PT with INR INR Chloride 110 H Anion Gap 6 L Random Glucose 125 H CK-MB (CK-2) 3.9 H Troponin I 0.28 H B-Natriuretic Peptide 252.7 H Ur Specific [place] 10/11/19 10/11/19 22:16 22:16 Lymphocytes % PT with INR 14.40 H INR 1.22 H Chloride Anion Gap Random Glucose CK-MB (CK-2) Troponin I B-Natriuretic Peptide Ur Specific [place] 1.003 L ASSESSMENT AND PLAN: 1. Chest pain - No acute abnormality on CXR. No pulmonary embolism on Chest/ thorax CTA and no DVT on leg doppler. EKG shows sinus tachycardia and T wave inversion in V4-6, aVL (not acute). Troponin is elevated. Will admit to telemetry to rule out ACS, get HbA1c, urine toxicology, ECHO, fasting lipids and consult cardiology. Got Nitroglycerin patch and Aspirin 324 mg in the ER. Will continue comprehensive care for all of patients comorbid conditions including Eliquis for Afib. 2. Hypertension - Restart suitable outpatient antihypertensive drugs when clinically appropriate. Revise regimen to ensure [id number] excellent BP control and counseling services manager patient on the injurious effects of uncontrolled hypertension. Nonpharmacologic measures to control hypertension like weight loss , salt restriction and exercise discussed. Importance of adherence to treatment regimen and attainment of normotension emphasized. 3. DVT prophylaxis - On Eliquis for Afib. 4. Advance directives - Full code
--- NOTE | 2019-10-12 01:45 | PDOC ---
Documentation entered by Jonny Newman SCRIBE, acting as scribe for Paris Dozier MD. Paris Dozier MD: This documentation has been prepared by the Paty ellis Xhesika, SCRIBE, under my direction and personally reviewed by me in its entirety. I confirm that the documentation accurately reflects all work, treatment, procedures, and medical decision making performed by me. Attending Attestation - Resident Resident Name: JulianasaidaJulio - ED Attending Attestation I have performed the following: I have examined & evaluated the patient, The case was reviewed & discussed with the resident, I agree w/resident's findings & plan, Exceptions are as noted - HPI HPI: 10/11/19 22:05 The patient is a 59 year old male with a significant PMH of CAD (s/p NM last year), HTN, HLD, mesenteric ischemia (on eliquis) who presents to the emergency department for 2 hours of chest pain. Pt states he was washing dishes when he felt new onset sharp, non-radiating, pushing/"pressure" chest pain associated with palpitations. Pt states his symptoms are similar to his previous NM. Pt notes in the morning he endorsed L calf pain, radiating up his leg, which has since been resolved. The patient denies leg swelling, shortness of breath, headache and dizziness. Denies fever, chills, cough, nausea, vomiting, diarrhea and constipation. Denies dysuria, frequency, urgency and hematuria. Allergies: NKDA 10/11/19 22:51 - Physicial Exam PE: 10/11/19 22:06 GENERAL: The patient is in no acute distress. HEAD: Normal with no signs of trauma. EYES: PERRLA, EOMI, sclera anicteric, conjunctiva clear. ENT: Ears normal, nares patent, oropharynx clear without exudates. Moist mucous membranes. NECK: Normal range of motion, supple without lymphadenopathy LUNGS: Breath sounds equal, clear to auscultation bilaterally. No wheezes, and no crackles. HEART:Regular rate and rhythm, normal S1 and S2 without murmur, rub or gallop. ABDOMEN: Soft, nontender, normoactive bowel sounds. EXTREMITIES: Normal range of motion, no edema. NEUROLOGICAL: Cranial nerves II through XII grossly intact. Normal speech. No focal neurological deficits. MUSCULOSKELETAL: Back non-tender to palpation SKIN: Warm, Dry, normal turgor, no rashes or lesions noted. 10/11/19 22:51 - Medical Decision Making 10/11/19 22:52 EKG: ST rate of 103 bpm, axis nml, intervals nml, T wave inversions noted v4-v6 , I and aVL Pt with st changes AVR S/p complaint of chest pain Differential includes cardiac ischemia, pe, asthma exacerbation, pneumonia, pneumothorax, pleural effusion, costochondritis, pericarditis, GERD. ACS high on the differential given pt history (although pt had ? recent cardiac cath) 10/11/19 22:54 Laboratory Tests 10/11/19 10/11/19 10/11/19 22:16 22:16 22:16 WBC 5.1 Hgb 14.9 Hct 43.9 D Plt Count 149 D INR 1.22 H Urine Ketones Negative Urine Blood Negative Ur Leukocyte Esterase Negative 10/11/19 23:30 Laboratory Tests 10/11/19 10/11/19 22:16 22:16 BUN 12.4 Creatinine 1.2 Creatine Kinase 261 Troponin I 0.28 H B-Natriuretic Peptide 252.7 H Lipase 250 Duplex: no evidence of DVT Cardiology Consult: May want to add CTA Aspirin given Pt admitted to hospitalist service CTA pending 10/11/19 23:34
--- NOTE | 2019-10-12 02:12 | HP ---
CHIEF COMPLAINT: chest pain PCP: Dr. Serrano Cardiology: Dr. Barney GI: Dr. Lizbet Chacko Photographs Curator: Dr. 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 Patient states the chest pain started around 8pm last night which started after he had dinner and was washing his dishes. He described the pain has burning, heavy, and tight but it did not radiate anywhere. He had associated symptoms of SOB and palpitations but no dizziness. The pain was initially a 10/10 but it had resolved to a 2/10 by the time I saw him. The pain felt similar to the time he had an WA in the past. Earlier in the day the patient also had left calf pain which radiated to his back. He states this felt just like his sciatica pain that he has felt in the past. Patient was last at [facility] in january of last year and was transferred to [facility] due to portal vein thrombosis. Patient was treated at [facility] and was found to have Protein S deficiency while there. He denies fever, chills, headache, N/V/D, abd pain, numbness, weakness. Patient was initlally tachycardic on arrival but heart rate improved. 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 Allergies latex Allergy (Verified 10/11/19 21:24) SKIN IRRITATION pollen extracts Allergy (Verified 10/12/19 01:47) adhesive tape Adverse Reaction (Verified 10/11/19 21:24) HOME MEDICATIONS: Home Medications Medication Instructions Recorded Montelukast Sodium [Singulair] 10 mg PO HS 07/14/18 Aspirin [ASA -] 81 mg PO DAILY 02/01/19 Metoprolol Tartrate [Lopressor -] 25 mg PO DAILY 02/01/19 Albuterol Sulfate Inhaler - 1 - 2 inh PO QID PRN 10/12/19 [Ventolin Hfa Inhaler -] Apixaban [Eliquis] 5 mg PO BID 10/12/19 Atorvastatin Ca [Lipitor] 20 mg PO HS 10/12/19 Fluticasone Propionate [Flovent 50 mcg IH PRN PRN 10/12/19 Diskus] REVIEW OF SYSTEMS as per HPI PHYSICAL EXAMINATION Vital Signs - 24 hr 10/11/19 10/12/19 21:22 01:40 Temperature 97.3 F L 98.1 F Pulse Rate 102 H Pulse Rate [ 70 Right Radial] Respiratory 18 18 Rate Blood Pressure 132/86 Blood Pressure 129/84 [Left Arm] O2 Sat by Pulse 97 98 Oximetry (%) GENERAL: Awake, alert, and fully oriented, in no acute distress. HEAD: Normal with no signs of trauma. EYES: PERRL, EOMI, no scleral icterus EARS, NOSE, THROAT: MMM, no exudate noted in oropharynx NECK: Normal range of motion, supple without lymphadenopathy, JVD, or masses. LUNGS: Breath sounds equal, clear to auscultation bilaterally. No wheezes, and no crackles. No accessory muscle use. HEART: Regular rate and rhythm, normal S1 and S2 without murmur, rub or gallop. ABDOMEN: Soft, nontender, not distended, normoactive bowel sounds, no guarding, no rebound, no masses. MUSCULOSKELETAL: No bony deformities or tenderness. EXTREMITIES: 2+ pulses, warm, well-perfused. No calf tenderness. No peripheral edema. NEUROLOGICAL: Normal speech. Normal gait. sensation intact throughout PSYCHIATRIC: Cooperative. Good eye contact. Appropriate mood and affect. SKIN: Warm, dry, normal turgor Laboratory Results - last 24 hr 10/11/19 10/11/19 10/11/19 22:16 22:16 22:16 WBC 5.1 RBC 4.77 Hgb 14.9 Hct 43.9 D MCV 91.9 MCH 31.2 MCHC 34.0 RDW 12.4 Plt Count 149 D MPV 9.9 Absolute Neuts (auto) 2.3 Neutrophils % 45.1 D Lymphocytes % 41.2 H D Monocytes % 9.2 Eosinophils % 3.7 D Basophils % 0.8 Nucleated RBC % 0 PT with INR INR PTT (Actin FS) Sodium 143 Potassium 3.8 Chloride 110 H Carbon Dioxide 28 Anion Gap 6 L BUN 12.4 Creatinine 1.2 Est GFR (CKD-EPI)AfAm 75.19 Est GFR (CKD-EPI)NonAf 64.87 Random Glucose 125 H Calcium 8.9 Magnesium 2.1 Total Bilirubin 0.6 AST 37 ALT 54 Alkaline Phosphatase 66 Creatine Kinase 261 Creatine Kinase Index 1.4 CK-MB (CK-2) 3.9 H Troponin I 0.28 H B-Natriuretic Peptide 252.7 H Total Protein 7.6 Albumin 4.1 Lipase 250 Urine Color Urine Appearance Urine pH Ur Specific [place] Urine Protein Urine Glucose (UA) Urine Ketones Urine Blood Urine Nitrite Urine Bilirubin Urine Urobilinogen Ur Leukocyte Esterase 10/11/19 10/11/19 22:16 22:16 WBC RBC Hgb Hct MCV MCH MCHC RDW Plt Count MPV Absolute Neuts (auto) Neutrophils % Lymphocytes % Monocytes % Eosinophils % Basophils % Nucleated RBC % PT with INR 14.40 H INR 1.22 H PTT (Actin FS) 34.9 Sodium Potassium Chloride Carbon Dioxide Anion Gap BUN Creatinine Est GFR (CKD-EPI)AfAm Est GFR (CKD-EPI)NonAf Random Glucose Calcium Magnesium Total Bilirubin AST ALT Alkaline Phosphatase Creatine Kinase Creatine Kinase Index CK-MB (CK-2) Troponin I B-Natriuretic Peptide Total Protein Albumin Lipase Urine Color Yellow Urine Appearance Clear Urine pH 7.0 Ur Specific [place] 1.003 L Urine Protein Negative Urine Glucose (UA) Negative Urine Ketones Negative Urine Blood Negative Urine Nitrite Negative Urine Bilirubin Negative Urine Urobilinogen 1.0 Ur Leukocyte Esterase Negative ASSESSMENT/PLAN: 59 y/o/m with PMHx of HTN, HLD, CAD s/p NSTEMI (w/cath 07/15/2019 with CAD 50% proximal left circumflex, luminal irregularities, and 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 Admitted for typical chest pain. #Typical Chest pain - R/O ACS - elevated trop at 0.28, baseline noted to be around 0.31 based on previous admissions - On previous admission CK-MB was normal despite elevated trop, on this admission the CK-MB was elevated at 3.9 - Trend trop - EKG - ECHO to evaluate cardiac function - ECHO on last admission with EF at 60-65%, trace mitral and tricuspid regurg - ASA given in ED, will continue daily ASA - CTA - evidence of PE or dissection #Protein S deficieny - Continue Eliquis, ASA #AFib - EKG showing sinus tachycardia at 103bpm - previous EKGs with Afib with RVR - QTc 466 - no ischemic changes noted on EKG - continuing home Eliquis #HTN - Continue Metoprolol #HLD - Continue Atorvastatin #Prophylaxis - Eliquis #FEN - Cholesterol/Sodium controlled diet - No IVF indicated, encourage PO intake - Monitor and replete lytes as needed #Dispo - Admitted to tele Visit type - Emergency Visit Emergency Visit: Yes ED Registration Date: 10/12/19 Care time: The patient presented to the Emergency Department on the above date and was hospitalized for further evaluation of their emergent condition. - New Patient This patient is new to me today: No - Critical Care Critical Care patient: No ATTENDING PHYSICIAN STATEMENT I saw and evaluated the patient. I reviewed the resident's note and discussed the case with the resident. I agree with the resident's findings and plan as documented. SUBJECTIVE: OBJECTIVE: ASSESSMENT AND PLAN:
[2019-10-12 03:55] VITALS: BMI 24.7
--- NOTE | 2019-10-12 07:39 | CON.CARD ---
Consult Consult Specialty:: cardiology Reason for Consultation:: chest pain - History of Present Illness Chief Complaint: Pt A&Ox3; still with central sharp chest pain History of Present Illness: The patient is a 59 year old male (b. [facility]) with a significant PMH of CAD (s/p IL 06/2018--> ? coronary angiogram showing nonobstructive LCx disease) , HTN, HLD, s/p mesenteric ischemia-->transfer to [facility] for surgery (on apixaban for PAF and ?this condition), who presents to the emergency department for 2 hours of chest pain. Pt states he was washing dishes when he felt new onset sharp, non-radiating, pushing/"pressure" chest pain associated with palpitations. Pt states his symptoms are similar to his previous IL. Pt notes in the morning he endorsed L calf pain, radiating up his leg, which has since been resolved. - History Source History Provided By: Patient, Medical Record Limitations to Obtaining History: No Limitations - Past Medical History Cardio/Vascular: Yes: CAD, HTN, Hyperlipdemia, [place] Pulmonary: No: Asthma Gastrointestinal: No: Ascites Renal/: No: Renal Failure Heme/Onc: No: Anemia Psych: Yes: Anxiety - Past Surgical History Past Surgical History: Yes: None - Alcohol/Substance Use Hx Alcohol Use: No (Social last was few days ago) History of Substance Use: reports: None - Smoking History Smoking history: Never smoked Have you smoked in the past 12 months: No - Social History Place of : Other History of Recent Travel: No Home Medications - Allergies Allergies/Adverse Reactions: Allergies Allergy/AdvReac Type Severity Reaction Status Date / Time latex Allergy Verified 10/11/19 21:24 pollen extracts Allergy Verified 10/12/19 01:47 adhesive tape AdvReac Verified 10/11/19 21:24 - Home Medications Home Medications: Ambulatory Orders Montelukast Sodium [Singulair] 10 mg PO HS 07/14/18 Aspirin [ASA -] 81 mg PO DAILY 02/01/19 Metoprolol Tartrate [Lopressor -] 25 mg PO DAILY 02/01/19 Albuterol Sulfate Inhaler - [Ventolin Hfa Inhaler -] 1 - 2 inh PO QID PRN Apixaban [Eliquis] 5 mg PO BID 10/12/19 Atorvastatin Ca [Lipitor] 20 mg PO HS 10/12/19 Fluticasone Propionate [Flovent Diskus] 50 mcg IH PRN PRN 10/12/19 Family Medical History Family History: Denies Review of Systems - Review of Systems Constitutional: reports: No Symptoms Eyes: reports: No Symptoms HENT: reports: No Symptoms Neck: reports: No Symptoms Cardiovascular: reports: Chest Pain Respiratory: reports: No Symptoms Gastrointestinal: reports: No Symptoms Genitourinary: reports: No Symptoms Breasts: reports: No Symptoms Reported Musculoskeletal: reports: No Symptoms Integumentary: reports: No Symptoms Neurological: reports: No Symptoms Endocrine: reports: No Symptoms Hematology/Lymphatic: reports: No Symptoms Psychiatric: reports: Anxiety - Risk Factors Known Risk Factors: Yes: Age, Gender, Hypercholesterolemia, Hypertension, Prior IL /Emb Stroke (IL 06/2018) Vital Signs: Vital Signs Temperature 97.8 F 10/12/19 05:57 Pulse Rate 62 10/12/19 05:57 Respiratory Rate 18 10/12/19 05:57 Blood Pressure 108/77 10/12/19 05:57 O2 Sat by Pulse Oximetry (%) 99 10/12/19 05:57 Constitutional: Yes: Anxious Eyes: Yes: WNL HENT: Yes: WNL Neck: Yes: WNL Respiratory: Yes: WNL Gastrointestinal: Yes: WNL Renal/: Yes: WNL Cardiovascular: Yes: WNL Heart Sounds: Yes: S1, S2, S4 Musculoskeletal: Yes: WNL Extremities: Yes: WNL Edema: No Peripheral Pulses WNL: Yes Integumentary: Yes: WNL Neurological: Yes: WNL ...Motor Strength: WNL Psychiatric: Yes: Alert, Oriented, Other (anxiety) - Other Data Labs, Other Data: CBC, BMP 10/11/19 22:16 10/11/19 22:16 INR, PTT INR 1.22 (0.83-1.09) H 10/11/19 22:16 Troponin, BNP 10/11/19 10/11/19 22:16 22:16 Troponin I 0.28 H B-Natriuretic Peptide 252.7 H Troponin, BNP 10/11/19 10/11/19 22:16 22:16 Troponin I 0.28 H B-Natriuretic Peptide 252.7 H Abnormal Lab Results 10/11/19 10/12/19 10/12/19 22:16 11:18 16:08 Troponin I 0.44 H 0.37 H B-Natriuretic Peptide 252.7 H Triglycerides 247 H HDL Cholesterol 34 L Echo: Report Reviewed (01/2019: normal LVEF) Ejection Fraction %: LVEF > or = 40 % Imaging - Results Chest X-ray: Image Reviewed EKG: Image Reviewed Problem List - Problems (1) Elevated troponin Assessment/Plan: TNI 0.28. TNI chronically elevated since at least 06/2018 (at that time, TNI jon to 2.0-- >coronary angiogram for IL; 0.3 in Jan, 2019). F/u TNI and EKG serially. Code(s): R79.89 - OTHER SPECIFIED ABNORMAL FINDINGS OF BLOOD CHEMISTRY (2) Chest pain Assessment/Plan: No chest pain presently. F/u TNI, EKG serially. On ASA, apixaban, metoprolol, statin. Code(s): R07.9 - CHEST PAIN, UNSPECIFIED Qualifiers: Chest pain type: unspecified Qualified Code(s): R07.9 - Chest pain, unspecified (3) HTN (hypertension) Code(s): I10 - ESSENTIAL (PRIMARY) HYPERTENSION Qualifiers: Hypertension type: essential hypertension Qualified Code(s): I10 - Essential (primary) hypertension (4) Hypercholesteremia Code(s): E78.00 - PURE HYPERCHOLESTEROLEMIA, UNSPECIFIED
--- NOTE | 2019-10-12 07:41 | CON.CARD ---
Consult Consult Specialty:: cardiologyca - Past Medical History Cardio/Vascular: Yes: CAD, HTN, Hyperlipdemia, [place] - Past Surgical History Past Surgical History: Yes: None - Alcohol/Substance Use Hx Alcohol Use: No (Social last was few days ago) History of Substance Use: reports: None - Smoking History Smoking history: Never smoked Have you smoked in the past 12 months: No - Social History History of Recent Travel: No Home Medications - Allergies Allergies/Adverse Reactions: Allergies Allergy/AdvReac Type Severity Reaction Status Date / Time latex Allergy Verified 10/11/19 21:24 pollen extracts Allergy Verified 10/12/19 01:47 adhesive tape AdvReac Verified 10/11/19 21:24 - Home Medications Home Medications: Ambulatory Orders Montelukast Sodium [Singulair] 10 mg PO HS 07/14/18 Aspirin [ASA -] 81 mg PO DAILY 02/01/19 Metoprolol Tartrate [Lopressor -] 25 mg PO DAILY 02/01/19 Albuterol Sulfate Inhaler - [Ventolin Hfa Inhaler -] 1 - 2 inh PO QID PRN Apixaban [Eliquis] 5 mg PO BID 10/12/19 Atorvastatin Ca [Lipitor] 20 mg PO HS 10/12/19 Fluticasone Propionate [Flovent Diskus] 50 mcg IH PRN PRN 10/12/19 Vital Signs: Vital Signs Temperature 97.8 F 10/12/19 05:57 Pulse Rate 62 10/12/19 05:57 Respiratory Rate 18 10/12/19 05:57 Blood Pressure 108/77 10/12/19 05:57 O2 Sat by Pulse Oximetry (%) 99 10/12/19 05:57 - Other Data Labs, Other Data: CBC, BMP 10/11/19 22:16 10/11/19 22:16 INR, PTT INR 1.22 (0.83-1.09) H 10/11/19 22:16 Troponin, BNP 10/11/19 10/11/19 22:16 22:16 Troponin I 0.28 H B-Natriuretic Peptide 252.7 H Troponin, BNP 10/11/19 10/11/19 22:16 22:16 Troponin I 0.28 H B-Natriuretic Peptide 252.7 H
[2019-10-12] MEDS: ASPIRIN 81 MG CHEWABLE TABLETS PO SCH (09:30)
[2019-10-12] MEDS: APIXABAN 5 MG TABLET PO SCH ×2 (09:30→21:19)
--- NOTE | 2019-10-12 09:42 | PN ---
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 Visit type - Emergency Visit Emergency Visit: Yes ED Registration Date: 10/12/19 Care time: The patient presented to the Emergency Department on the above date and was hospitalized for further evaluation of their emergent condition. - New Patient This patient is new to me today: Yes Date on this admission: 10/12/19 - Critical Care Critical Care patient: No
[2019-10-12] MEDS ORDERED: metoPROLOL SUCCINATE 25 MG TAB.SR.24H (FP) PO SCH (10:00)
[2019-10-12] MEDS ORDERED: ASPIRIN 81 MG CHEWABLE TABLETS PO SCH (10:00)
--- NOTE | 2019-10-12 11:02 | EKG ---
Test Reason : Blood Pressure : / mmHG Vent. Rate : 065 BPM Atrial Rate : 065 BPM P-R Int : 164 ms QRS Dur : 096 ms QT Int : 436 ms P-R-T Axes : 060 027 161 degrees QTc Int : 453 ms NORMAL SINUS RHYTHM LEFT VENTRICULAR HYPERTROPHY WITH REPOLARIZATION ABNORMALITY ABNORMAL ECG WHEN COMPARED WITH ECG OF 11-OCT-2019 21:17, VENT. RATE HAS DECREASED BY [address] MORE DEPRESSED ANTERIOR LEADS T WAVE INVERSION NOW EVIDENT IN INFERIOR LEADS T WAVE INVERSION MORE EVIDENT IN ANTERIOR LEADS Confirmed by KERRY BLAND MD ([id number]) on 10/12/2019 11:01:38 AM Referred By: Christi CRUZ Confirmed By:KERRY BLAND MD
--- NOTE | 2019-10-12 11:02 | EKG ---
Test Reason : Blood Pressure : / mmHG Vent. Rate : 103 BPM Atrial Rate : 103 BPM P-R Int : 166 ms QRS Dur : 084 ms QT Int : 356 ms P-R-T Axes : 063 020 107 degrees QTc Int : 466 ms SINUS TACHYCARDIA POSSIBLE LEFT ATRIAL ENLARGEMENT POSTERIOR INFARCT , AGE UNDETERMINED ABNORMAL ECG WHEN COMPARED WITH ECG OF 06-FEB-2019 12:35, SINUS RHYTHM HAS REPLACED ATRIAL FIBRILLATION VENT. RATE HAS DECREASED BY 74 BPM Confirmed by KERRY BLAND MD ([id number]) on 10/12/2019 11:02:20 AM Referred By: Confirmed By:KERRY BLAND MD
[2019-10-12 18:46] LABS: COCAINE, UR NEGATIVE ng/ml (CUTOFF=300); METHADONE, UR NEGATIVE ng/ml (CUTOFF=300); OPIATES, URI NEGATIVE ng/ml (CUTOFF=300); PHENCYCLIDINE,URINE NEGATIVE ng/ml (CUTOFF=25); URINE AMPHETAMINES NEGATIVE ng/ml (CUTOFF=500); URINE BARBITURATES NEGATIVE ng/ml (CUTOFF=200); URINE BENZODIAZEPINES NEGATIVE ng/ml (CUTOFF=200)
[2019-10-12 20:22] VITALS: TEMP 98.1
[2019-10-12] MEDS ORDERED: MONTELUKAST NA 10 MG TABLET PO SCH (22:00)
[2019-10-12] MEDS ORDERED: ATORVASTATIN CA 20 MG TABLET (FP) PO SCH (22:00)
--- NOTE | 2019-10-13 06:40 | PN ---
Progress Note, Physician Chief Complaint: Pt A&Ox3; mildly anxious; no chest pain presently. History of Present Illness: The patient is a 59 year old man (b. [facility]) with a significant PMH of CAD (s/p MS 06/2018--> ? coronary angiogram showing nonobstructive LCx disease), HTN , HLD, s/p mesenteric ischemia-->transfer to [facility] for surgery (on apixaban for PAF and ?this condition), who presents to the emergency department for 2 hours of chest pain. Pt states he was washing dishes when he felt new onset sharp, non-radiating, pushing/"pressure" chest pain associated with palpitations. Pt states his symptoms are similar to his previous MS. Pt notes in the morning he endorsed L calf pain, radiating up his leg, which has since been resolved. - Current Medication List Current Medications: Active Medications Apixaban (Eliquis -) 5 mg PO BID [facility] Last Admin: 10/12/19 21:19 Dose: 5 mg Aspirin (Asa -) 81 mg PO DAILY [facility] Last Admin: 10/12/19 09:30 Dose: 81 mg Atorvastatin Calcium (Lipitor -) 20 mg PO [facility] Last Admin: 10/12/19 21:19 Dose: 20 mg Metoprolol Succinate (Toprol Xl -) 25 mg PO DAILY [facility] Last Admin: 10/12/19 09:30 Dose: 25 mg Montelukast Sodium (Singulair -) 10 mg PO [facility] Last Admin: 10/12/19 21:19 Dose: 10 mg - Objective Vital Signs: Vital Signs Temperature 98.1 F 10/13/19 06:00 Pulse Rate 66 10/13/19 06:00 Respiratory Rate 18 10/13/19 06:00 Blood Pressure 109/69 10/13/19 06:00 O2 Sat by Pulse Oximetry (%) 97 10/12/19 20:18 Constitutional: Yes: Anxious Eyes: Yes: WNL HENT: Yes: Pharyngeal Erythema Neck: Yes: WNL Cardiovascular: Yes: S1, S2 Respiratory: Yes: WNL Gastrointestinal: Yes: WNL ...Rectal Exam: Yes: WNL Genitourinary: Yes: WNL Breast(s): Yes: WNL Musculoskeletal: Yes: WNL Extremities: Yes: WNL Edema: No Peripheral Pulses WNL: Yes Integumentary: Yes: WNL Neurological: Yes: WNL ...Motor Strength: WNL Psychiatric: Yes: Alert, Oriented Labs: INR, PTT INR 1.22 (0.83-1.09) H 10/11/19 22:16 - ....Imaging Chest X-ray: Image Reviewed EKG: Image Reviewed Other: Image Reviewed (telemetry: NSR; no arrythmias) Problem List - Problems (1) Elevated troponin Assessment/Plan: TNI 0.28; 2nd level pending. TNI chronically elevated since at least 06/2018 (at that time, TNI jon to 2.0-- >coronary angiogram for MS; 0.3 in Jan, 2019). No chest pain presently. F/u TNI and EKG serially. Code(s): R79.89 - OTHER SPECIFIED ABNORMAL FINDINGS OF BLOOD CHEMISTRY (2) Chest pain Assessment/Plan: No chest pain presently. F/u TNI, EKG serially. On ASA, apixaban, metoprolol, statin. Hx nonobstrucitve CAD on coronary angiogram 06/2018. Code(s): R07.9 - CHEST PAIN, UNSPECIFIED Qualifiers: Chest pain type: unspecified Qualified Code(s): R07.9 - Chest pain, unspecified (3) HTN (hypertension) Code(s): I10 - ESSENTIAL (PRIMARY) HYPERTENSION Qualifiers: Hypertension type: essential hypertension Qualified Code(s): I10 - Essential (primary) hypertension (4) Hypercholesteremia Assessment/Plan: consider repeat triglycerides fasting. Code(s): E78.00 - PURE HYPERCHOLESTEROLEMIA, UNSPECIFIED (5) Sedentary lifestyle Assessment/Plan: Pt has been relatively sedentary post-2018 MS; blames it on studying for doctorate. The importance of including exercise as part of his "health regimen" was discussed. Code(s): Z91.89 - OTH PERSONAL RISK FACTORS, NOT ELSEWHERE CLASSIFIED
[2019-10-13 07:14] LABS: HEMATOCRIT 41.5 % (35.4-49); HEMOGLOBIN 14.2 GM/dL (11.7-16.9); MCH 31.3 pg (25.7-33.7); MCHC 34.3 g/dl (32.0-35.9); MEAN CELL VOLUME 91.5 fl (80-96); MEAN PLT VOLUME 9.6 fl (7.5-11.1); PLATELET COUNT 148 K/MM3 (134-434); RBC 4.54 M/mm3 (4.00-5.60); RDW 12.6 % (11.9-15.9)
[2019-10-13 07:26] LABS: ALBUMIN 3.8 g/dl (3.4-5.0); BLOOD UREA NITROGEN 13.7 mg/dL (7-18); CALCIUM 9.3 mg/dL (8.5-10.1); CREATININE 1.1 mg/dL (0.55-1.3); MAGNESIUM 2.4 mg/dL (1.8-2.4); POTASSIUM 4.7 mmol/L (3.5-5.1)
--- NOTE | 2019-10-13 08:04 | PN ---
Teaching Attending Note Name of Resident: Domingo Ponce ATTENDING PHYSICIAN STATEMENT I saw and evaluated the patient. I reviewed the resident's note and discussed the case with the resident. I agree with the resident's findings and plan as documented. SUBJECTIVE: Patient is chest pain-free OBJECTIVE: Vital Signs Temperature 98.1 F 10/13/19 06:00 Pulse Rate 66 10/13/19 06:00 Respiratory Rate 18 10/13/19 06:00 Blood Pressure 109/69 10/13/19 06:00 O2 Sat by Pulse Oximetry (%) 97 10/12/19 20:18 General: Middle-aged woman, comfortable, not in distress HEENT; mucous membranes moist, no anemia, no jaundice, PERRLA, no nystagmus Neck: No JVD, supple, no bruit, thyroid palpably normal, normal carotid pulsations. Chest: Nontender, clear to auscultation bilaterally CVS: S1-S2 regular no murmur/gallop/rub Abdomen: Nondistended, soft, bowel sounds present. Extremities: No edema., No cough tenderness, pulses present GIN INSPECTOR: AO X3 , no gross motor sensory deficit CBC, BMP 10/13/19 05:10 10/13/19 05:10 Troponin I 0.35 Active Medications Apixaban (Eliquis -) 5 mg PO BID [facility] Last Admin: 10/12/19 21:19 Dose: 5 mg Aspirin (Asa -) 81 mg PO DAILY [facility] Last Admin: 10/12/19 09:30 Dose: 81 mg Atorvastatin Calcium (Lipitor -) 20 mg PO [facility] Last Admin: 10/12/19 21:19 Dose: 20 mg Metoprolol Succinate (Toprol Xl -) 25 mg PO DAILY [facility] Last Admin: 10/12/19 09:30 Dose: 25 mg Montelukast Sodium (Singulair -) 10 mg PO HS [facility] Last Admin: 10/12/19 21:19 Dose: 10 mg ASSESSMENT AND PLAN:59 year old man with a PMH of HTN, HLD, Protein S deficiency , portal vein thrombosis mesenteric ischemia, on lifelong anticoagulation CAD s/ p NSTEMI (cardiac catheterization 07/15/2019 with CAD 50% proximal left circumflex) and Afib (on Eliquis) presenting with chest pain and left leg pain for 1 day. Patient has mild elevation of troponin I, non-dynamic EKG, evaluated by cardiology. Impression: Can be DC home if cleared by cardiology Problem List - Problems (1) Chest pain Assessment/Plan: Troponin is downtrending, evaluated by cardiology consult recent echo shows normal ejection fraction patient is chest pain-free recommended increase the dose of metoprolol XL to 50 and discharged home to follow-up with primary training and development head. Code(s): R07.9 - CHEST PAIN, UNSPECIFIED Qualifiers: Chest pain type: precordial pain Qualified Code(s): R07.2 - Precordial pain (2) Elevated troponin Assessment/Plan: Trended down most likely demand ischemia evaluated by cardiology normal axis cleared to DC home Problems reviewed: Yes Code(s): R79.89 - OTHER SPECIFIED ABNORMAL FINDINGS OF BLOOD CHEMISTRY (3) HTN (hypertension) Assessment/Plan: Well-controlled continue all home medications Problems reviewed: Yes Code(s): I10 - ESSENTIAL (PRIMARY) HYPERTENSION Qualifiers: Hypertension type: essential hypertension Qualified Code(s): I10 - Essential (primary) hypertension (4) Hypercholesteremia Assessment/Plan: Continue statin Problems reviewed: Yes Code(s): E78.00 - PURE HYPERCHOLESTEROLEMIA, UNSPECIFIED (5) Paroxysmal atrial fibrillation Assessment/Plan: On apixaban will increase dose of metoprolol to 50 follow-up with cardiology Problems reviewed: Yes Code(s): I48.0 - PAROXYSMAL ATRIAL FIBRILLATION (6) Portal vein thrombosis Assessment/Plan: On anticoagulation Problems reviewed: Yes Code(s): I81 - PORTAL VEIN THROMBOSIS
[2019-10-13 08:32] VITALS: BP 134/85; PULSE 67
--- NOTE | 2019-10-13 10:22 | PN ---
Progress Note, Physician History of Present Illness: No further chest pain or dyspnea. - Current Medication List Current Medications: Active Medications Apixaban (Eliquis -) 5 mg PO BID [facility] Last Admin: 10/12/19 21:19 Dose: 5 mg Aspirin (Asa -) 81 mg PO DAILY [facility] Last Admin: 10/12/19 09:30 Dose: 81 mg Atorvastatin Calcium (Lipitor -) 20 mg PO [facility] Last Admin: 10/12/19 21:19 Dose: 20 mg Metoprolol Succinate (Toprol Xl -) 25 mg PO DAILY [facility] Last Admin: 10/12/19 09:30 Dose: 25 mg Montelukast Sodium (Singulair -) 10 mg PO [facility] Last Admin: 10/12/19 21:19 Dose: 10 mg - Objective Vital Signs: Vital Signs Temperature 98.1 F 10/13/19 08:30 Pulse Rate 67 10/13/19 08:30 Respiratory Rate 18 10/13/19 08:32 Blood Pressure 134/85 10/13/19 08:30 O2 Sat by Pulse Oximetry (%) 97 10/13/19 08:32 Constitutional: Yes: No Distress, Calm, Thin Neck: Yes: Supple Cardiovascular: Yes: Regular Rate and Rhythm Respiratory: Yes: Regular, CTA Bilaterally Gastrointestinal: Yes: Normal Bowel Sounds, Soft Edema: No Labs: CBC, BMP 10/13/19 05:10 10/13/19 05:10 INR, PTT INR 1.22 (0.83-1.09) H 10/11/19 22:16 - ....Imaging EKG: Report Reviewed (Tele: NSR) Problem List - Problems (1) Paroxysmal atrial fibrillation Code(s): I48.0 - PAROXYSMAL ATRIAL FIBRILLATION (2) Chronic anticoagulation Code(s): Z79.01 - UROLOGY PHYSICIAN ASSISTANT (CURRENT) USE OF ANTICOAGULANTS (3) Chest pain Code(s): R07.9 - CHEST PAIN, UNSPECIFIED Qualifiers: Chest pain type: precordial pain Qualified Code(s): R07.2 - Precordial pain (4) Elevated troponin Code(s): R79.89 - OTHER SPECIFIED ABNORMAL FINDINGS OF BLOOD CHEMISTRY (5) Apical variant hypertrophic cardiomyopathy Code(s): I42.2 - OTHER HYPERTROPHIC CARDIOMYOPATHY (6) HTN (hypertension) Code(s): I10 - ESSENTIAL (PRIMARY) HYPERTENSION Qualifiers: Hypertension type: essential hypertension Qualified Code(s): I10 - Essential (primary) hypertension (7) Hypercholesteremia Code(s): E78.00 - PURE HYPERCHOLESTEROLEMIA, UNSPECIFIED (8) Portal vein thrombosis Code(s): I81 - PORTAL VEIN THROMBOSIS (9) Demand ischemia Code(s): I24.8 - OTHER FORMS OF ACUTE ISCHEMIC HEART DISEASE Assessment/Plan 10/12/2018 Chest CTA-Neg for PE, thoracic aneurysm or dissection 07/15/2018 LHC shows nonobstructive CAD 50% prox LCx, luminal irregularities, elevated LVEDP 23 mmHg, LV gram c/w spade-like apical hypertrophic cardiomyopathy, 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 Plan for medical therapy with Toprol XL 25 qd, Lipitor 20 qd, ASA 81 qd 02/03/2019 Echo: Normal RV and LV size and fxn LVEF 60-65%, tr MR, TR 1. Chest pain syndrome with underlying 2. CAD non-obstructive, angina, demand ischemia 3. PAF->SR on Eliquis 4. HTN 5. Hypercholesterolemia 6. Apical hypertrophic cardiomyopathy 7. H/o portal vein thrombosis with SMV and splenic extension in setting of pancreatitis post thrombectomy on chronic a/c PLAN: 1. Troponins downtrending 2. Increase Metoprolol 50 qd, Lipitor 20 qd 3. Continue Eliquis 5 bid and ASA 81 qd 4. D/c planning with f/u in office
[2019-10-13] MEDS ORDERED: metoPROLOL SUCCINATE 25 MG TAB.SR.24H (FP) PO SCH (10:34)
[2019-10-13] MEDS: APIXABAN 5 MG TABLET PO SCH (10:44)
[2019-10-13] MEDS: ASPIRIN 81 MG CHEWABLE TABLETS PO SCH (10:44)
--- NOTE | 2019-10-13 12:06 | DS ---
Physical Exam: SUBJECTIVE: Patient seen and examined. Offers no complaints. Wants to go home. OBJECTIVE: Vital Signs Period Temp Pulse Resp BP Sys/Cruz Pulse Ox Last 24 Hr 97.7 F-98.1 F 54-80 18-18 97-134/57-85 97-97 PHYSICAL EXAM Constitutional: Yes: No Distress, Calm, Thin Neck: Yes: Supple Cardiovascular: Yes: Regular Rate and Rhythm Respiratory: Yes: Regular, CTA Bilaterally Gastrointestinal: Yes: Normal Bowel Sounds, Soft Edema: No Laboratory Results - last 24 hr 10/12/19 10/12/19 10/12/19 11:18 16:08 18:00 WBC RBC Hgb Hct MCV MCH MCHC RDW Plt Count MPV Sodium Potassium Chloride Carbon Dioxide Anion Gap BUN Creatinine Est GFR (CKD-EPI)AfAm Est GFR (CKD-EPI)NonAf Random Glucose Hemoglobin A1c % Calcium Magnesium Total Bilirubin AST ALT Alkaline Phosphatase Creatine Kinase Creatine Kinase Index CK-MB (CK-2) Troponin I 0.44 H 0.37 H Total Protein Albumin Triglycerides Cholesterol Total LDL Cholesterol HDL Cholesterol TSH 1.61 Opiates Screen Negative Methadone Screen Negative Barbiturate Screen Negative Phencyclidine Screen Negative Ur Amphetamines Screen Negative MDMA (Ecstasy) Screen Negative Benzodiazepines Screen Negative Cocaine Screen Negative U Marijuana (THC) Screen Negative 10/13/19 10/13/19 10/13/19 05:10 05:10 05:10 WBC 5.0 RBC 4.54 Hgb 14.2 Hct 41.5 MCV 91.5 MCH 31.3 MCHC 34.3 RDW 12.6 Plt Count 148 MPV 9.6 Sodium 143 Potassium 4.7 Chloride 110 H Carbon Dioxide 29 Anion Gap 4 L BUN 13.7 Creatinine 1.1 Est GFR (CKD-EPI)AfAm 83.53 Est GFR (CKD-EPI)NonAf 72.07 Random Glucose 91 Hemoglobin A1c % 5.5 Calcium 9.3 Magnesium 2.4 Total Bilirubin 1.0 AST 30 ALT 45 Alkaline Phosphatase 58 Creatine Kinase 161 Creatine Kinase Index 2.6 CK-MB (CK-2) 4.3 H Troponin I 0.35 H Total Protein 7.0 Albumin 3.8 Triglycerides 149 Cholesterol 106 Total LDL Cholesterol 57 HDL Cholesterol 38 L TSH Opiates Screen Methadone Screen Barbiturate Screen Phencyclidine Screen Ur Amphetamines Screen MDMA (Ecstasy) Screen Benzodiazepines Screen Cocaine Screen U Marijuana (THC) Screen HOSPITAL COURSE: Date of Admission:10/12/19 59 y/o/m with PMHx of HTN, HLD, CAD s/p NSTEMI (w/cath 07/15/2019 with CAD 50% proximal left circumflex, luminal irregularities, and 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 Admitted for typical chest pain. R/O ACS #Typical Chest pain - R/O ACS -symptoms improved - trop peaked at 0.44. elevated trop at 0.28, baseline noted to be around 0.31 based on previous admissions - ECHO on last admission with EF at 60-65%, trace mitral and tricuspid regurg -CTA - no evidence of PE or dissection -Increased Metoprolol to 50 qd, Lipitor 20 qd -To follow up outpatient per cardio #Protein S deficiency - Continue Eliquis, ASA #Hx of Portal vein thrombosis -con. eliquis #AFib - EKG showing sinus tachycardia at 103bpm - previous EKGs with Afib with RVR - QTc 466 - no ischemic changes noted on EKG - continuing home Eliquis #HTN - Metoprolol increased to 50mg. #HLD - Continue Atorvastatin 20mg #Prophylaxis - Eliquis Date of Discharge: 10/13/19 Minutes to complete discharge: 35 Discharge Summary Problems reviewed: Yes Reason For Visit: ELEVATED TROPONIN I LEVEL, CHEST PAIN Current Active Problems Chest pain (Acute) Chronic anticoagulation (Acute) Demand ischemia (Acute) Elevated troponin (Acute) Leg pain, left (Acute) Paroxysmal atrial fibrillation (Acute) Portal vein thrombosis (Acute) Sedentary lifestyle (Acute) Condition: Stable - Instructions Diet, Activity, Other Instructions: You were here because of chest pain. We did some test which all came back normal. Follow up with your primary care doctor in 1 week. Follow up with your adobe cq developer in 1 week. We increased your Metoprolol to 50mg Daily. If you develop chest pain or shortness of breath, please go to your nearest emergency room. Referrals: Ceasar Serrano MD [Primary Care Provider] - 1 Week Disposition: HOME - Home Medications Comprehensive Discharge Medication List: Ambulatory Orders Montelukast Sodium [Singulair] 10 mg PO HS 07/14/18 Aspirin [ASA -] 81 mg PO DAILY 02/01/19 Albuterol Sulfate Inhaler - [Ventolin HFA Inhaler -] 1 - 2 inh PO QID PRN Apixaban [Eliquis] 5 mg PO BID 10/12/19 Atorvastatin Ca [Lipitor] 20 mg PO HS 10/12/19 Fluticasone Propionate [Flovent Diskus] 50 mcg IH PRN PRN 10/12/19 Metoprolol Succinate [Toprol XL -] 50 mg PO DAILY #30 tab.sr.24h 10/13/19 This patient is new to me today: Yes Date on this admission: 10/13/19 Emergency Visit: Yes ED Registration Date: 10/12/19 Care time: The patient presented to the Emergency Department on the above date and was hospitalized for further evaluation of their emergent condition. Critical Care patient: No - Discharge Referral Referred to [facility] Med P.C.: No ATTENDING PHYSICIAN STATEMENT I saw and evaluated the patient. I reviewed the resident's note and discussed the case with the resident. I agree with the resident's findings and plan as documented. SUBJECTIVE: OBJECTIVE: ASSESSMENT AND PLAN:
== END 2019-10-13 11:30 | disposition home or self-care (01) | DRG 198 ==
LOC: JER 21:11 → JERBED 10-12 00:16 → OBSVTOIN 10-12 02:01 → J4W 10-12 03:29
PROVIDERS: ADMIT Internal Medicine; ATTEND Internal Medicine
DX: R07.89 Other chest pain (principal); D68.59 Other primary thrombophilia; I42.2 Other hypertrophic cardiomyopathy; I25.2 Old myocardial infarction; I10 Essential (primary) hypertension; I25.10 Atherosclerotic heart disease of native coronary artery without angina pectoris; R79.89 Other specified abnormal findings of blood chemistry; I48.0 Paroxysmal atrial fibrillation; Z79.01 Long term (current) use of anticoagulants
CPT/HCPCS: 36415; 71046-TC-FY; 71275-TC; 80053; 80061; 80307; 81003; 82550; 82553; 83036; 83690; 83721; 83735; 83880; 84443; 84484; 85025; 85027; 85610; 85730; 87086; 93005; 93010; 93970-TC; 97116-GP; 97161-GP; 99285-25; G0378; Q9967

== ENCOUNTER 2024-07-01 04:25 | Emergency (ER) | payer OTHER ==
[2024-07-01 04:35] VITALS: BMI 25.8
[2024-07-01 05:40] LABS: BASO % 1.1 % (0-2.0); EOS % 4.2 % (0-4.5); HEMATOCRIT 44.4 % (35.4-49); LYMPH % 43.1 % (8-40); MCH 31.8 pg (25.7-33.7); MCHC 33.7 g/dl (32.0-35.9); MEAN CELL VOLUME 94.4 fl (80-96); MEAN PLT VOLUME 9.1 fl (7.5-11.1); MONO % 9.5 % (3.8-10.2); NEUT % 42.1 % (42.8-82.8); PLATELET COUNT 158 10^3/uL (134-434); RDW 13.2 % (11.9-15.9); WHITE BLOOD COUNT 6.4 K/mm3 (4.0-10.0)
[2024-07-01 06:02] LABS: POTASSIUM 3.7 mmol/L (3.5-5.1)
[2024-07-01 06:03] LABS: CALCIUM 8.7 mg/dL (8.5-10.1)
[2024-07-01 06:04] LABS: BLOOD UREA NITROGEN 18.5 mg/dL (7-18); MAGNESIUM 2.2 mg/dL (1.8-2.4)
[2024-07-01 06:07] LABS: CREATININE 1.2 mg/dL (0.55-1.3)
[2024-07-01 06:10] LABS: INR 0.97 (0.83-1.09)
[2024-07-01 06:12] LABS: N-TERMINAL BNP 410.6 pg/ml (5-125)
[2024-07-01 06:13] LABS: ACTIVATED PTT 32.4 SECONDS (25.2-36.5)
[2024-07-01 06:35] LABS: TOT PROT 7.6 g/dl (6.4-8.2)
[2024-07-01] MEDS: ACETAMINOPHEN 1000 MG/100 ML BAG IVPB ONE (06:36)
[2024-07-01] MEDS ORDERED: ACETAMINOPHEN INJECTION 100 ML ONE (06:36)
[2024-07-01] MEDS ORDERED: ASPIRIN 81 MG CHEWABLE TABLETS ONE (07:25)
[2024-07-01] MEDS: ASPIRIN 81 MG CHEWABLE TABLETS PO ONE (07:30)
[2024-07-01] MEDS ORDERED: HEPARIN NA (PORCINE) 5,000 UNITS/ML 1ML VIAL IVPUSH PRN ×3 (07:36→07:56)
[2024-07-01] MEDS ORDERED: HEPARIN INFUSION - 25,000 UNITS/500 ML INFUS.BAG IVPB SCH (07:45)
[2024-07-01] MEDS ORDERED: HEPARIN NA (PORCINE) 5,000 UNITS/ML 1ML VIAL IVPUSH ONE (07:54)
[2024-07-01] MEDS ORDERED: HEPARIN NA (PORCINE) 5,000 UNITS/ML 1ML VIAL ONE (08:14)
[2024-07-01] MEDS ORDERED: HEPARIN INFUSION - 25,000 UNITS/500 ML INFUS.BAG IVPB ONE (08:15)
[2024-07-01] MEDS: HEPARIN NA (PORCINE) 5,000 UNITS/ML 1ML VIAL IVPUSH PRN (08:42)
[2024-07-01] MEDS: HEPARIN INFUSION - 25,000 UNITS/500 ML INFUS.BAG IVPB SCH (08:42)
[2024-07-01] MEDS: HEPARIN NA (PORCINE) 5,000 UNITS/ML 1ML VIAL IVPUSH ONE (08:47)
[2024-07-01 12:04] VITALS: RESP 18
[2024-07-01 15:51] VITALS: TEMP 98.2
[2024-07-01 18:18] VITALS: BP 156/90; PULSE 64
== END 2024-07-01 18:21 | disposition short-term general hospital (02) ==
LOC: JER 04:25
PROC: 3E033NZ Introduction of Analgesics, Hypnotics, Sedatives into Peripheral Vein, Percutaneous Approach (ICD-10-PCS; principal; 2024-07-01)
DX: I26.99 Other pulmonary embolism without acute cor pulmonale (principal); R06.02 Shortness of breath; Z20.822 Contact with and (suspected) exposure to COVID-19
CPT/HCPCS: 0241U-QW; 36415; 71046-TC-FY; 71275-TC; 80053; 82962; 83735; 83880; 84484; 85025; 85610; 85730; 86850; 86900; 86901; 93005; 93010; 93306-TC; 96374; 99285-25; J0131; J1644; Q9967